=== PATIENT | male | born 1940 | race Caucasian/White ===

== ENCOUNTER → 2016-10-02 | Day surgery (SDC) | payer OTHER ==
[~2016-10-02] VITALS: Ht 188 cm; Wt 115.2 kg
[~2016-10-02] MED LIST: ADVAIR DISKUS1 UNIT INH; ALBUTEROL 3 ML3 ML INH; AMLODIPINE BESY10 MG PO; ASPIR LOW81 MG PO; CEFTIN 250 #201 PAC PO; CRESTOR 5MG5 MG PO; LASIX20 MG PO; LISINOPRIL40 MG PO; METOPROLOL SUCC50 MG PO; PREDNISONE 10MG10 M1 PO; PROAIR HFA0.09 MG/Ac PO; SYMBICORT 160/41 PUF INH; TRAMADOL HYDROC50 MG PO; WARFARIN SODIUM3 MG PO
--- NOTE | 2016-10-02 08:37 | Operative Report ---
Operative/Inv Procedure Report Surgery Date: 10/02/16 Name of Procedure: Cataract extraction lens implantation right eye Pre-Operative Diagnosis: Age-related cataract right eye 20/60 vision Post-Operative Diagnosis: Same Estimated Blood Loss: none Surgeon/Pulmonary Nurse Practitioner: BYRON FERNANDEZ,IRINEO Ledbetter Anesthesia: local monitored anesthesi Complications: None Operative/Procedure Note Note: The patient was brought to the operating room standard monitoring equipment was attached the patient was prepped and draped in the usual fashion for intraocular surgery. A lid speculum was placed to retract the lids. The case was begun by making 2 partial-thickness corneal relaxing incisions at 8. A temporal incision with a 2.4 mm keratome. The eye was stabilized with a Hill ring during this incision. 1 mL of non-preserved lidocaine was introduced into the anterior chamber to provide anesthesia. The anterior chamber was then filled and deepened with viscoelastic. A curvilinear capsulorrhexis was achieved using a 30-gauge needle and is a cystotome and capsulorrhexis was finished using a Utrata forceps. A second or paracentesis incision was made temporally with a 1 mm MVR blade. The lens was then hydrodissected with balanced salt solution and found to be rotatable. The lens was emulsified using phacoemulsification and a modified four-quadrant cracking technique. The residual cortical material was removed using automated irrigation and aspiration and as much of the anterior capsular rim was cleaned as well as possible. The posterior capsule was cleaned first with the automated machine on a low setting and then manually with a Tanner squeegee. The capsular bag was deepened with viscoelastic. The lens a Technis 1 23.0 Diopter placed into the bag under direct visualization and rotated so that the haptics were at 12 and 6:00. Viscoelastic was then removed from the eye by flushing it out and then by automated irrigation and aspiration. The eye was pressurized to a normal tone. 1/10 of a cc of vancomycin solution was introduced into the anterior chamber to provide antibiotic prophylaxis. The wounds were sealed by hydrating the stroma adjacent to them and the eye was left at a proper tone after the wounds were checked and found not to be leaking. The lid speculum was removed from the orbit. Antibiotic and steroid drops were placed on the eye and then the eye was shielded. Monitoring equipment was removed from the patient and the patient was removed from the operative suite to the holding area. The patient tolerated the procedure well and will be seen in the office tomorrow.
== END ==
LOC: STS 03:04
DX: H25.9 Unspecified age-related cataract (principal); I10 Essential (primary) hypertension; I25.2 Old myocardial infarction; E78.00 Pure hypercholesterolemia, unspecified
CPT/HCPCS: J2250; V2632

== ENCOUNTER → 2016-10-15 | Day surgery (SDC) | payer OTHER ==
[~2016-10-15] VITALS: Ht 188 cm; Wt 115.2 kg
--- NOTE | 2016-10-15 10:14 | Operative Report ---
Operative/Inv Procedure Report Surgery Date: 10/15/16 Name of Procedure: Cataract extraction lens implantation left eye Pre-Operative Diagnosis: Age-related cataract left eye 20/25 vision 20/50 glare vision Post-Operative Diagnosis: Same Estimated Blood Loss: none Surgeon/Field Support Representative: BYRON FERNANDEZ,IRINEO Ledbetter Anesthesia: local monitored anesthesi Complications: None Operative/Procedure Note Note: The patient was brought to the operating room standard monitoring equipment was attached the patient was prepped and draped in the usual fashion for intraocular surgery. A lid speculum was placed to retract the lids. The case was begun by making 2 partial-thickness corneal relaxing incisions at 160. A temporal incision with a 2.4 mm keratome. The eye was stabilized with a Hill ring during this incision. 1 mL of non-preserved lidocaine was introduced into the anterior chamber to provide anesthesia. The anterior chamber was then filled and deepened with viscoelastic. A curvilinear capsulorrhexis was achieved using a 30-gauge needle and is a cystotome and capsulorrhexis was finished using a Utrata forceps. A second or paracentesis incision was made temporally with a 1 mm MVR blade. The lens was then hydrodissected with balanced salt solution and found to be rotatable. The lens was emulsified using phacoemulsification and a modified four-quadrant cracking technique. The residual cortical material was removed using automated irrigation and aspiration and as much of the anterior capsular rim was cleaned as well as possible. The posterior capsule was cleaned first with the automated machine on a low setting and then manually with a Tanner squeegee. The capsular bag was deepened with viscoelastic. The lens a Technis 1 22.5 Diopter placed into the bag under direct visualization and rotated so that the haptics were at 12 and 6:00. Viscoelastic was then removed from the eye by flushing it out and then by automated irrigation and aspiration. The eye was pressurized to a normal tone. 1/10 of a cc of vancomycin solution was introduced into the anterior chamber to provide antibiotic prophylaxis. The wounds were sealed by hydrating the stroma adjacent to them and the eye was left at a proper tone after the wounds were checked and found not to be leaking. The lid speculum was removed from the orbit. Antibiotic and steroid drops were placed on the eye and then the eye was shielded. Monitoring equipment was removed from the patient and the patient was removed from the operative suite to the holding area. The patient tolerated the procedure well and will be seen in the office tomorrow.
== END ==
LOC: STS 01:06
DX: H25.9 Unspecified age-related cataract (principal); I10 Essential (primary) hypertension; E78.00 Pure hypercholesterolemia, unspecified; Z95.2 Presence of prosthetic heart valve; Z79.01 Long term (current) use of anticoagulants
CPT/HCPCS: J2250; V2632

== ENCOUNTER 2017-09-25 14:09 | Emergency (ER) | payer OTHER, MEDICARE ==
[~2017-09-25] VITALS: Ht 188 cm; Wt 117.9 kg
[~2017-09-25 14:09] MED LIST changes: +ALBUTEROL2.5 MG/3 M INH/SOL; +AMLODIPINE BESY10 M1 PO; -AMLODIPINE BESY10 MG PO; +AMOX-CLAV 875-1 EACH PO; +BACTRIM DS TAB1 EACH PO; +COUMADIN3 M1 PO; -CRESTOR 5MG5 MG PO; +CRESTOR5 M1 PO; +FUROSEMIDE20 M1 PO; +FUROSEMIDE40 M1 PO; +LOVENOX40 MG/0.1 SC; +METOPROLOL SUCC50 M2 PO; -METOPROLOL SUCC50 MG PO; +METOPROLOL TART50 M1 PO; +PREDNISONE10 M2 PO; +PREDNISONE5 M1 PO; -PROAIR HFA0.09 MG/Ac PO; +PROAIR HFA8.5 GM INH; -SYMBICORT 160/41 PUF INH; +SYMBICORT 16010.2 GM INH; +TRAMADOL HCL50 M1 PO; -WARFARIN SODIUM3 MG PO
--- NOTE | 2017-09-25 14:33 | ED GENERAL ADULT ---
History of Present Illness General Chief Complaint: Dyspnea (COPD, CHF, Other) Stated Complaint: SOB/ASTHMA Source: patient, family Exam Limitations: no limitations Vital Signs & Intake/Output Vital Signs & Intake/Output Vital Signs Date Time Temp Pulse Resp B/P B/P Pulse O2 O2 Flow FiO2 Mean Ox Delivery Rate 09/25 1934 156/78 09/253 97.7 62 20 174/84 94 Room Air 09/25 1720 98.5 98 19 134/78 98 Room Air 09/25 1452 97.7 100 22 94 Room Air 09/25 1444 99 Room Air 09/25 1427 98.0 101 18 144/77 99 Room Air Allergies Coded Allergies: clavulanic acid (From AUGMENTIN) (GI UPSET 06/23/17) Reconcile Medications Albuterol Sulfate (Proair Hfa) 90 MCG HFA.AER.AD 2 PUF INH Q4-6 PRN PRN ASTHMA (Reported) Albuterol Sulfate 2.5 MG/3 ML (0.083 %) VIAL.NEB 1 Vial INH/TORI Q4P PRN SHORTNESS OF BREATH (Reported) Amlodipine Besylate 10 MG TABLET 1 TAB PO DAILY BP (Reported) Amoxicillin 500 MG CAPSULE 1 CAP PO BID BRONCHITIS Budesonide/Formoterol Fumarate (Symbicort 160-4.5 Mcg Inhaler) 160 MCG-4.5 MCG/ ACTUATION HFA.AER.AD 2 PUF INH BID COPD (Reported) Enoxaparin Sodium (Lovenox) 40 MG/0.4 ML SYRINGE 3 SYR SC BID HEART VALVE Please inject 120mg lovenox twice a day until your INR is 2.5-3.5. Then stop the lovenox.. Furosemide 40 MG TABLET 1 TAB PO DAILY SHORTNESS OF BREATH . Metoprolol Tartrate 50 MG TABLET 1 TAB PO BID HEART (Reported) Prednisone 20 MG TABLET 2 TAB PO DAILY ASTHMA Prednisone 5 MG TABLET 1 TAB PO DAILY Shortness of breath Please start taking 07/22/17. Rosuvastatin Calcium (Crestor) 5 MG TABLET 1 TAB PO DAILY CHOLESTEROL ( Reported) Sulfamethoxazole/Trimethoprim (Bactrim Ds Tablet) 800 MG-160 MG TABLET 1 TAB PO BID MRSA PNEUMONIA . Tramadol HCl 50 MG TABLET 1 TAB PO Q6P PRN PAIN (Reported) Warfarin Sodium (Coumadin) 3 MG TABLET 4.5 MG PO DAILY BLOOD THINNER ( Reported) Triage Note: PT TO ED FOR WORSENING SOB OVER PAST WEEK, AUDIBLY WHEEZING IN TRIAGE, USED NEB AT HOME WITH NO RELIEF. Triage Nurses Notes Reviewed? yes Onset: Abrupt Duration: day(s): Timing: recent history HPI: 09/25/17 2:30 PM 77-year-old male presents to the emergency department for difficulty breathing over the past 3 days. The onset of the symptoms have been gradual, the duration has been the past 3 days, the severity is significant as his symptoms required him to come to the emergency department. He admits to a nonproductive cough, but denies fever. No chest pain. He does admit to wheezing. Past History Medical History Any Pertinent Medical History? 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 No Review of Systems Review of Systems Constitutional: Denies: fever. EENTM: Reports: no symptoms. Respiratory: Reports: cough, short of breath. Cardiovascular: Denies: chest pain. GI: Denies: abdominal pain. Genitourinary: Reports: no symptoms. Musculoskeletal: Reports: no symptoms. Skin: Reports: no symptoms. Neurological/Psychological: Reports: no symptoms. Hematologic/Endocrine: Reports: no symptoms. Immunologic/Allergic: Reports: no symptoms. Physical Exam Physical Exam General Appearance: well developed/nourished, alert, awake, anxious Head: atraumatic, normal appearance Eyes: Bilateral: normal appearance, PERRL, EOMI. Ears, Nose, Throat: normal pharynx, normal ENT inspection Neck: normal inspection, supple Respiratory: decreased breath sounds, wheezing Cardiovascular: regular rate/rhythm Peripheral Pulses: 4+ radial (R), 4+ radial (L) Gastrointestinal: non-tender Back: normal range of motion Extremities: normal inspection, normal range of motion Neurologic/Psych: no motor/sensory deficits, awake, alert, oriented x 3 Skin: intact, normal color, warm/dry Core Measures ACS in differential dx? No CVA/TIA Diagnosis: No Sepsis Present: No Sepsis Focused Exam Completed? No Progress Differential Diagnoses I considered the following diagnoses in my evaluation of the patient: [Asthma, COPD, CHF, pulmonary embolism] Plan of Care: Orders Procedure Date/time Status Add-on Test (ER Only) 09/25 1935 Active TROPONIN LEVEL 09/25 1830 Complete EKG 09/25 1830 Active PROTHROMBIN TIME 09/25 1450 Complete TROPONIN LEVEL 09/25 1431 Complete D-DIMER 09/25 1431 Complete COMPREHENSIVE METABOLIC PANEL 09/25 1431 Complete CBC WITHOUT DIFFERENTIAL 09/25 1431 Complete B-TYPE NATRIURETIC PEP (BNP) 09/25 1431 Complete EKG 09/25 1431 Active EKG 09/25 1414 Active Laboratory Tests 09/25/17 1821: Troponin I 0.04 09/25/17 1450: Anion Gap 15, Estimated GFR > 60, BUN/Creatinine Ratio 25.0, Glucose 133 H, Calcium 9.1, Total Bilirubin 1.0, AST 24, ALT 40, Alkaline Phosphatase 60, Troponin I 0.04, Xqi-F-Mrwkvkisadi Pept 721 H, Total Protein 6.6, Albumin 4.1, Globulin 2.5, Albumin/Globulin Ratio 1.6, PT 26.0 H, INR 2.50 H, D-Dimer High Sensitivty 256 H, CBC w Diff NO MAN DIFF REQ, RBC 4.15 L, MCV 96.7 H, MCH 32.3 H, RDW 13.9, MPV 8.3, Gran % 78.9 H, Lymphocytes % 11.6 L, Monocytes % 8.2, Eosinophils % 0.9, Basophils % 0.4, Absolute Granulocytes 4.6, Absolute Lymphocytes 0.7 L, Absolute Monocytes 0.5, Absolute Eosinophils 0.1, Absolute Basophils 0, PUBS MCHC 33.4 Initial ED EKG: NSR, new t wacve inversions III, AVF Departure Departure Disposition: STILL A PATIENT Condition: Stable Clinical Impression Primary Impression: Dyspnea Referrals: Vandana Ram MD (PCP/Family) Departure Forms: Customer Survey General Discharge Information Prescriptions: Current Visit Scripts Amoxicillin 1 CAP PO BID #20 CAP Prednisone 2 TAB PO DAILY #10 TAB Comments 09/25/17 7:35 PM Repeat EKG shows nonspecific T-wave abnormality. No significant changes from the old tracing. Second troponin is unchanged. I discussed the case with the patient's mover Dr. Higginbotham who agrees with the management and plan. Chest x-ray is negative. Labs are otherwise unremarkable. The patient never had any chest pain, is currently asymptomatic. He was treated with amoxicillin and prednisone along with his inhalers. He will follow-up with his doctor on Friday or return to the emergency department if worse. Critical Care Note Critical Care Note Critical Care Time: non-applicable
[2017-09-25 14:59] LABS: ABSOLUTE BASOPHIL COUNT 0 /CUMM (0.0-0.2); ABSOLUTE EOSINOPHIL COUNT 0.1 /CUMM (0.0-0.7); ABSOLUTE GRANULOCYTE CT 4.6 /CUMM (1.4-6.5); ABSOLUTE LYMPH COUNT 0.7 /CUMM (1.2-3.4); ABSOLUTE MONOCYTE COUNT 0.5 /CUMM (0.10-0.60); BASOPHIL % 0.4 % (0.0-2.0); EOSINOPHIL % 0.9 % (0-5); GRANULOCYTE % 78.9 % (42.2-75.2); HEMATOCRIT 40.2 % (42-52); MEAN CORPUSCULAR HGB 32.3 PG (27.0-31.0); MEAN CORPUSCULAR HGB CONC 33.4 G/DL (33.0-37.0); MEAN CORPUSCULAR VOLUME 96.7 FL (80.0-94.0); MEAN PLATELET VOLUME 8.3 FL (7.4-10.4); PLATELET COUNT 182 /CUMM (130-400); RBC DISTRIBUTION WIDTH 13.9 % (11.5-14.5); RED BLOOD CELL CT 4.15 /CUMM (4.70-6.10); WHITE BLOOD CELL COUNT 5.9 /CUMM (4.8-10.8)
--- NOTE | 2017-09-25 15:14 | RADIOLOGY REPORT ---
EXAMINATION: XR PORTABLE CHEST CLINICAL INFORMATION: Shortness of breath COMPARISON: Chest x-ray 09/10/2017 TECHNIQUE: Portable frontal view of the chest was obtained. FINDINGS: Status post median sternotomy. Heart size is normal. The cardiomediastinal contours are normal. There is no pulmonary vascular congestion. No infiltrate. No pleural effusion. Compared with prior study no change. IMPRESSION: No acute abnormality of the chest.
[2017-09-25] MEDS ORDERED: AMOXICILLIN500 M2 PO (19:33)
[2017-09-25 19:34] VITALS: BP 156/78
[2017-09-25] MEDS ORDERED: PREDNISONE20 M1 PO (19:34)
== END 2017-09-25 19:37 ==
LOC: ERH 14:09
PROVIDERS: Emergency Medicine
DX: R06.00 Dyspnea, unspecified (principal); R05 Cough; I10 Essential (primary) hypertension; I50.9 Heart failure, unspecified
CPT/HCPCS: 1263; 71045; 93005; 93010

== ENCOUNTER 2017-11-01 14:14 | Inpatient (IN) | payer OTHER, MEDICARE ==
[~2017-11-01] VITALS: Ht 180.3 cm; Wt 120.7 kg
[~2017-11-01 14:14] MED LIST changes: +AMOXICILLIN500 M2 PO; +AMOXICILLIN500 M3 PO; +IPRAT-ALBUT 0.5-3 ML INH; +PREDNISONE20 M1 PO
--- NOTE | 2017-11-01 14:41 | ED DYSPNEA/ASTHMA COMPLAINT ---
History of Present Illness General Chief Complaint: Dyspnea (COPD, CHF, Other) Stated Complaint: SOB Source: patient, old records Exam Limitations: no limitations Vital Signs & Intake/Output Vital Signs & Intake/Output Vital Signs Date Time Temp Pulse Resp B/P B/P Pulse O2 O2 Flow FiO2 Mean Ox Delivery Rate 11/01 1547 96 Nasal 2.0L Cannula 11/01 1443 Nasal 2.0L Cannula 11/01 1421 92 Nasal 2.0L Cannula 11/01 1419 96.1 71 22 168/78 89 Triage Note: PT STATES HE WAS HERE YESTERDAY AND SEEN BY DR. RESENDIZ AND RIRI AND STATE THEY FELT IT WAS HIS ASMTHA. PT STATES HE WAS GIVEN BREATHING TREATMENTS GIVEN STEROIDS AND STATES HE DID FEEL BETTER YESTREDAY HOWEVER WOKE TODAY AND IS FEELIGN VERY SOB. RESP. PAGED Triage Nurses Notes Reviewed? yes Onset: Gradual Duration: day(s): Timing: recent history Severity: severe HPI: 77YO MALE with hx of CAD, CHF, HTN, hld, OK, heart failure with preserved ejection fraction, aortic aneursym s/p repair, asthma presents to ED complaining of worsening dyspnea and wheezing. PAtient was seen and evaluated here two days ago and started on Augmentin and Prednisone in addition to albuterol inhaler. Patient reports that symptoms have worsened, especially last night, patient had episode where he felt as though he couldn't breath. Patient reports cough initially productive and white sputum and currently productive of yellow sputum. Patient sees pulmonolgist Dr. Madrid. The patient denies fevers, chills, nausea, vomiting, chest pain, abdominal pain, diarrhea, sore throat. Patient has stable chronic swelling of both lower extremities present for over a year. (Cele GALLO,Jennie Mireles) Allergies Coded Allergies: No Known Allergies (11/01/17) Reconcile Medications Albuterol Sulfate (Proair Hfa) 90 MCG HFA.AER.AD 2 PUF INH Q4-6 PRN PRN ASTHMA (Reported) Albuterol Sulfate 2.5 MG/3 ML (0.083 %) VIAL.NEB 1 Vial INH/TORI Q4P PRN SHORTNESS OF BREATH (Reported) Amlodipine Besylate 10 MG TABLET 1 TAB PO DAILY BP (Reported) Budesonide/Formoterol Fumarate (Symbicort 160-4.5 Mcg Inhaler) 160 MCG-4.5 MCG/ ACTUATION HFA.AER.AD 2 PUF INH BID COPD (Reported) Furosemide 40 MG TABLET 1 TAB PO DAILY SHORTNESS OF BREATH . Hydrocodone/Acetaminophen (Vicodin 5-300 MG Tablet) 5 MG-300 MG TABLET 1 TAB PO AD PRN PAIN (Reported) Ipratropium/Albuterol Sulfate (Iprat-Albut 0.5-3(2.5) MG/3 Ml) 0.5 MG-3 MG (2.5 MG BASE)/3 ML AMPUL.NEB 1 VIAL INH Q6HR PRN WHEEZING Lactobacillus Acidophilus (Probiotic) (Unknown Strength) CAPSULE (Unknown Dose ) PO DAILY PROBIOTIC (Reported) Metoprolol Tartrate 50 MG TABLET 1 TAB PO BID HEART (Reported) Multiple Vitamin (Multivitamins) 1 EACH TABLET 1 TAB PO DAILY SUPPLEMENT ( Reported) Omeprazole Magnesium (Prilosec Otc) 20 MG TABLET.DR 1 TAB PO DAILY GI ( Reported) Prednisone 10 MG TABLET 0 PO DAILY asthma 5 tabs po day 1 4 tabs po day 2 3 tabs po day 3 2 tabs po day 4 1 tab po day 5 and 6 Rosuvastatin Calcium (Crestor) 5 MG TABLET 1 TAB PO DAILY CHOLESTEROL ( Reported) Tramadol HCl 50 MG TABLET 1 TAB PO Q6P PRN PAIN (Reported) Warfarin Sodium (Coumadin) (Unknown Strength) TABLET (Unknown Dose) PO DAILY BLOOD THINNER (Reported) (Rubin FERNANDEZ,Kyle Lim) Past History Travel History Traveled to [place] past 21 day No Medical History Any Pertinent Medical History? 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 No (Jennie Mello) Review of Systems Review of Systems Constitutional: Reports: no symptoms. EENTM: Reports: no symptoms. Respiratory: Reports: see HPI. Cardiovascular: Reports: no symptoms. GI: Reports: no symptoms. Genitourinary: Reports: no symptoms. Musculoskeletal: Reports: no symptoms. Skin: Reports: no symptoms. Neurological/Psychological: Reports: no symptoms. Hematologic/Endocrine: Reports: no symptoms. Immunologic/Allergic: Reports: no symptoms. All Other Systems: Reviewed and Negative (Jennie Mello) Physical Exam Physical Exam General Appearance: well developed/nourished, alert, awake Head: atraumatic, normal appearance Eyes: Bilateral: normal appearance. Ears, Nose, Throat: normal pharynx, normal ENT inspection, hearing grossly normal Neck: normal inspection, supple, full range of motion Respiratory: diffuse expiratory wheezes through out lung hopkins Cardiovascular: regular rate/rhythm Peripheral Pulses: 2+ radial (R), 2+ radial (L) Gastrointestinal: normal bowel sounds, soft, non-tender, no organomegaly Extremities: normal range of motion, 3+ pitting edema bilaterally with erythema Neurologic/Psych: awake, alert, oriented x 3 Skin: erythema of bilateral lower legs Core Measures ACS in differential dx? Yes CVA/TIA Diagnosis No Sepsis Present: No Sepsis Focused Exam Completed? No (Jennie Mello) Progress Differential Diagnosis: asthma, AMI, bronchitis, costochondritis, CHF, COPD, musculoskeletal pain, pulmonary embolism, pneumonia, pneumothorax, unstable angina Plan of Care: Orders Procedure Date/time Status TROPONIN LEVEL 11/02 0500 Active CBC WITHOUT DIFFERENTIAL 11/02 0500 Active BASIC ELECTROLYTES PLUS BUN&CR 11/02 0500 Active EKG 11/02 0500 Active Heart Healthy Diet 11/01 D Active TROPONIN LEVEL 11/01 2040 Active EKG 11/01 2040 Active LACTIC ACID 11/01 1727 Active Pathway - chart 11/01 1640 Active Patient Data 11/01 1640 Active Code Status 11/01 1640 Active Patient Data 11/01 1614 Active ED Holding Orders 11/01 1550 Active Admit to inpatient 11/01 1550 Active Vital Signs 11/01 1550 Active Code Status 11/01 1550 Complete TROPONIN LEVEL 11/01 1427 Complete LACTIC ACID 11/01 1427 Complete COMPREHENSIVE METABOLIC PANEL 11/01 1427 Complete CBC WITHOUT DIFFERENTIAL 11/01 1427 Complete B-TYPE NATRIURETIC PEP (BNP) 11/01 142 Complete EKG 11/01 1415 Active TRC EVALUATION (GEN) 11/01 UNK Active OXYGEN SETUP (GEN) 11/01 UNK Active House Staff 11/01 UNK Active VTE Mechanical Prophylaxis 11/01 UNK Active Vital Signs 11/01 UNK Active Telemetry/Associate Merchandise Planner 11/01 UNK Active Intake & Output 11/01 UNK Active Current Medications Sig/Poppy Start time Last Medication Dose Stop Time Status Admin Acetaminophen 650 MG Q6P PRN 11/01 1645 UNVr (Tylenol) Enoxaparin Sodium 40 MG DAILY 11/01 1640 UNVr (Lovenox) Magnesium Sulfate 1 GM ONCE ONE 11/01 1445 AC 11/01 (Mag Sulfate in D5) 11/01 1844 1453 Dextrose/Water 100 ML (D5W) Laboratory Tests 11/01/17 1440: Anion Gap 13, Estimated GFR > 60, BUN/Creatinine Ratio 31.1 H, Glucose 142 H, Lactic Acid 3.5 H, Calcium 9.7, Total Bilirubin 0.8, AST 45, ALT 34, Alkaline Phosphatase 58, Troponin I 0.04, Hua-N-Grazztzjvgg Pept 2600 H, Total Protein 7.1, Albumin 4.6, Globulin 2.5, Albumin/Globulin Ratio 1.8, CBC w Diff MAN DIFF ORDERED, RBC 4.49 L, MCV 96.8 H, MCH 32.7 H, MCHC 33.8, RDW 15.1 H, MPV 8.9, Gran % 90.9 H, Lymphocytes % 3.2 L, Monocytes % 5.9, Eosinophils % 0, Basophils % 0, Absolute Granulocytes 7.5 H, Absolute Lymphocytes 0.3 L, Absolute Monocytes 0.5, Absolute Eosinophils 0, Absolute Basophils 0, Platelet Estimate VERIFIED BY SMEAR, Anisocytosis 1+ Patient has persistent wheezes and hypoxia despite trial of outpatient abx and prednisone. Patient requires supplemental O2 here in the ED while at rest. Patient also with elevation in BNP compared to prior labs from 2 days ago. Family report he has not been taking lasix as prescribed recently, missed doses. Dr. Conklin spoke with hospitalist regarding this patient's telemetry admission for acute asthma exacerbation and volume overload. Patient requires IV steroids, pulmonology consult, IV lasix, repeat labs, possible cardiology consult, premature discharge would be unsafe. Diagnostic Imaging: Viewed by Me: Radiology Read. Discussed w/RAD: Radiology Read. Radiology Impression: LOCATION: [facility] ORDERING PHYSICIAN: Kyle Conklin MD SERVICE DATE: 11/01/177429 EXAM TYPE: RAD - XRY-PORTABLE CHEST XRAY EXAMINATION: XR PORTABLE CHEST CLINICAL INFORMATION: Shortness of breath. COMPARISON: 10/30/2017 TECHNIQUE: Single portable frontal view of the chest was obtained. The costophrenic sulci are excluded from [id number]. FINDINGS: Lungs are well expanded. No evidence of acute interstitial edema, focal consolidation, pleural effusion or pneumothorax. Again noted are cardiomegaly, replaced aortic valve, and intact sternotomy wires. The visualized bones are intact. IMPRESSION: 1. No acute pulmonary findings compared to 01/27/2018. 2. Cardiomegaly. DICTATED BY: Gera Metz MD DATE/TIME DICTATED:11/01/171618 MACHINE TOOL DRESSER:DENZEL DATE/TIME TRANSCRIBED:11/01/171618 CONFIDENTIAL, DO NOT COPY WITHOUT APPROPRIATE AUTHORIZATION. <Electronically signed in Other Vendor System> SIGNED BY: Gera Metz MD 11/01/174 Initial ED EKG: sinus rhythm @ 70BPM, PAC, stable ST depression lateral leads, nonspecific ST changes Prior EKG: unchanged (10/30/17) (Jennie Mello) Departure Departure Referrals: Vandana Ram MD (PCP/Family) Departure Forms: Customer Survey General Discharge Information (Jennie Mello) Departure Disposition: STILL A PATIENT Condition: Guarded Clinical Impression Primary Impression: Asthma exacerbation Secondary Impressions: Fluid overload Admission Note Spoke With: Candido Rouse MD Documentation of Exam: Documentation of any treatments & extenuating circumstances including Concerns Regarding Discharge (functional status, medication knowledge or non-compliance, living conditions, etc.) that warrant an admission rather than observation: [ TELE MONITORING, IV DIURESIS, NEBS, IV STEROIDS, IV ABX, FAILED OUTPATIENT TREATMENT] PA/HOSPITAL COORDINATOR Co-Sign Statement Statement: ED Attending supervision documentation- [X] I saw and evaluated the patient. I have also reviewed all the pertinent lab results and diagnostic results. I agree with the findings and the plan of care as documented in the PA's/HOSPITAL COORDINATOR's documentation. [X] I have reviewed the ED Record and agree with the PA's/HOSPITAL COORDINATOR's documentation. [] Additions or exceptions (if any) to the PAs/HOSPITAL COORDINATOR's note and plan are summarized below: [SEE ABOVE NOTE] (Rubin FERNANDEZ,Kyle Lim) Critical Care Note Critical Care Note Critical Care Time: 30-74 min (Cele GALLO,Jennie Mireles)
[2017-11-01 14:54] LABS: ABSOLUTE BASOPHIL COUNT 0 /CUMM (0.0-0.2); ABSOLUTE EOSINOPHIL COUNT 0 /CUMM (0.0-0.7); ABSOLUTE GRANULOCYTE CT 7.5 /CUMM (1.4-6.5); ABSOLUTE LYMPH COUNT 0.3 /CUMM (1.2-3.4); ABSOLUTE MONOCYTE COUNT 0.5 /CUMM (0.10-0.60); BASOPHIL % 0 % (0.0-2.0); EOSINOPHIL % 0 % (0-5); GRANULOCYTE % 90.9 % (42.2-75.2); HEMATOCRIT 43.4 % (42-52); MEAN CORPUSCULAR HGB 32.7 PG (27.0-31.0); MEAN CORPUSCULAR HGB CONC 33.8 G/DL (33.0-37.0); MEAN CORPUSCULAR VOLUME 96.8 FL (80.0-94.0); MEAN PLATELET VOLUME 8.9 FL (7.4-10.4); PLATELET COUNT 184 /CUMM (130-400); RBC DISTRIBUTION WIDTH 15.1 % (11.5-14.5); RED BLOOD CELL CT 4.49 /CUMM (4.70-6.10)
[2017-11-01 14:58] LABS: WHITE BLOOD CELL COUNT 8.2 /CUMM (4.8-10.8)
--- NOTE | 2017-11-01 16:27 | RADIOLOGY REPORT ---
EXAMINATION: XR PORTABLE CHEST CLINICAL INFORMATION: Shortness of breath. COMPARISON: 10/30/2017 TECHNIQUE: Single portable frontal view of the chest was obtained. The costophrenic sulci are excluded from [id number]. FINDINGS: Lungs are well expanded. No evidence of acute interstitial edema, focal consolidation, pleural effusion or pneumothorax. Again noted are cardiomegaly, replaced aortic valve, and intact sternotomy wires. The visualized bones are intact. IMPRESSION: 1. No acute pulmonary findings compared to 01/27/2018. 2. Cardiomegaly.
--- NOTE | 2017-11-01 16:35 | History & Physical ---
Flor Salmeron 11/01/17 1633: General Information and HPI MD Statement: I have seen and personally examined CANDIDA VALERO and documented this H&P. The patient is a 77 year old M who presented with a patient stated chief complaint of [dyspnea]. Source of Information: patient, family Exam Limitations: no limitations History of Present Illness: is a 77-year-old male with history of coronary artery disease, CHF, hypertension, hyperlipidemia, previous DC, hypertension with preserved ejection fraction, aortic aneurysm, gout, arthritis, and presents to the emergency department with chief complaint of shortness of breath which has been progressively worsening since 4 days prior to admission. Previously on 30 of October he was sent in the emergency department by his primary care Vandana Ram MD was treated for asthma exacerbation, he was treated with prednisone taper, was started on Augmentin and duonebulizations and returned home. However his shortness of breath continued to worsen, he had significant shortness of breath from just walking across the room towards the door, right prior to today's admission is shortness of breath got worse in spite of being on the steroids, nebulization and Augmentin antibiotic therefore he presented to the ER. Allergies/Medications Allergies: Coded Allergies: No Known Allergies (11/01/17) Home Med list Albuterol Sulfate (Proair Hfa) 90 MCG HFA.AER.AD 2 PUF INH Q4-6 PRN PRN ASTHMA (Reported) Albuterol Sulfate 2.5 MG/3 ML (0.083 %) VIAL.NEB 1 Vial INH/TORI Q4P PRN SHORTNESS OF BREATH (Reported) Amlodipine Besylate 10 MG TABLET 1 TAB PO DAILY BP (Reported) Budesonide/Formoterol Fumarate (Symbicort 160-4.5 Mcg Inhaler) 160 MCG-4.5 MCG/ ACTUATION HFA.AER.AD 2 PUF INH BID COPD (Reported) Furosemide 40 MG TABLET 1 TAB PO DAILY SHORTNESS OF BREATH . Hydrocodone/Acetaminophen (Vicodin 5-300 MG Tablet) 5 MG-300 MG TABLET 1 TAB PO AD PRN PAIN (Reported) Ipratropium/Albuterol Sulfate (Iprat-Albut 0.5-3(2.5) MG/3 Ml) 0.5 MG-3 MG (2.5 MG BASE)/3 ML AMPUL.NEB 1 VIAL INH Q6HR PRN WHEEZING Lactobacillus Acidophilus (Probiotic) (Unknown Strength) CAPSULE (Unknown Dose ) PO DAILY PROBIOTIC (Reported) Metoprolol Tartrate 50 MG TABLET 1 TAB PO BID HEART (Reported) Multiple Vitamin (Multivitamins) 1 EACH TABLET 1 TAB PO DAILY SUPPLEMENT ( Reported) Omeprazole Magnesium (Prilosec Otc) 20 MG TABLET.DR 1 TAB PO DAILY GI ( Reported) Prednisone 10 MG TABLET 0 PO DAILY asthma 5 tabs po day 1 4 tabs po day 2 3 tabs po day 3 2 tabs po day 4 1 tab po day 5 and 6 Rosuvastatin Calcium (Crestor) 5 MG TABLET 1 TAB PO DAILY CHOLESTEROL ( Reported) Tramadol HCl 50 MG TABLET 1 TAB PO Q6P PRN PAIN (Reported) Warfarin Sodium (Coumadin) (Unknown Strength) TABLET 4.5 MG PO DAILY BLOOD THINNER (Reported) Compliance With Home Meds: GOOD Past History Travel History Traveled to [place] past 21 day No Medical History Neurological: status post nerve damage right arm/hand/fingers EENT: NONE Cardiovascular: CAD, CHF, hypertension, hyperlipidemia, myocardial infarction, AORTIC ANEURSYM Respiratory: asthma Gastrointestinal: GERD Hepatic: NONE Renal: benign prost hyperplasia Musculoskeletal: gout, septic arthritis (left ankle 2000) Psychiatric: NONE Endocrine: NONE Blood Disorders: NONE Cancer(s): NONE PERFORATOR OPERATOR/Reproductive: NONE History of MRSA: Yes History of VRE: No History of CDIFF: No Surgical History Surgical History: CABG, cholecystectomy, status post aortic valve replacement 2013 status post repair of an aortic aneurysm 2013 status post excision of the second metatarsal head of the right foot ECHO Results (as available) EF% 55 Past Family/Social History Family History Relations & Conditions if any FATHER FH: pancreatic cancer Psychosocial History Where do you live? Home Who Do You Live With? spouse Services at Home: None Smoking Status: Never Smoked ETOH Use: occasional use Illicit Drug Use: denies illicit drug use Functional Ability ADLs Independent: dressing, eating, toileting, bathing. Ambulation: independent IADLs Independent: shopping, housework, finances, food prep, telephone, transportation , medication admin. Review of Systems Review of Systems Constitutional: Denies: chills, diaphoresis, fever, malaise, weakness, unexplained weight loss. EENTM: Denies: blurred vision, double vision, visual changes, eye pain. Cardiovascular: Reports: edema, orthopena, peripheral edema. Denies: chest pain, palpitations. Respiratory: Reports: cough, orthopnea, short of breath. Denies: hemoptysis. GI: Denies: abdominal pain, bloating, constipation, diarrhea. Genitourinary: Denies: no symptoms. Musculoskeletal: Denies: back pain, gout, joint pain, joint swelling. Skin: Denies: cysts, change in skin color, change in hair/nails, dryness. Neurological/Psychological: Denies: anxiety, ataxia, cognitive dysfunction, confusion. Hematologic/Endocrine: Reports: no symptoms. Immunologic/Allergic: Reports: no symptoms. All Other Systems: Reviewed and Negative Exam & Diagnostic Data Last 24 Hrs of Vital Signs/I&O Vital Signs Date Time Temp Pulse Resp B/P B/P Pulse O2 O2 Flow FiO2 Mean Ox Delivery Rate 11/01 1631 97.7 78 16 154/76 95 Nasal 2.0L Cannula 11/01 1547 96 Nasal 2.0L Cannula 11/01 1443 Nasal 2.0L Cannula 11/01 1421 92 Nasal 2.0L Cannula 11/01 1419 96.1 71 22 168/78 89 Intake & Output 11/01 1600 11/01 0800 11/01 0000 Intake Total Output Total Balance Patient 112.491 kg Weight Weight Reported by Patient Measurement Method Physical Exam General Appearance Alert, Oriented X3, Cooperative, No Acute Distress Skin No Rashes, No Breakdown, No Significant Lesion HEENT Atraumatic, PERRLA, EOMI Neck Supple, No JVD Cardiovascular Normal S1, Normal S2 Lungs bilateral basal crackles present, rhonchi scattered heard all over. Abdomen Normal Bowel Sounds, Soft, No Tenderness Neurological Strength at 5/5 X4 Ext, Normal Tone, Sensation Intact Extremities edema 2+, normal pulses, dark pigmentation left leg more than right, chronic from peripheral arterial disease. Vascular Normal Pulses, Pulses Symmetrical Last 24 Hrs of Labs/Mamadou: Laboratory Tests 11/01/17 1740: Lactic Acid Pending, PT 35.9 H, INR 3.46 H 11/01/17 1440: Anion Gap 13, Estimated GFR > 60, BUN/Creatinine Ratio 31.1 H, Glucose 142 H, Lactic Acid 3.5 H, Calcium 9.7, Total Bilirubin 0.8, AST 45, ALT 34, Alkaline Phosphatase 58, Troponin I 0.04, Cak-X-Qrlcfrlduva Pept 2600 H, Total Protein 7.1, Albumin 4.6, Globulin 2.5, Albumin/Globulin Ratio 1.8, CBC w Diff MAN DIFF ORDERED, RBC 4.49 L, MCV 96.8 H, MCH 32.7 H, MCHC 33.8, RDW 15.1 H, MPV 8.9, Gran % 90.9 H, Lymphocytes % 3.2 L, Monocytes % 5.9, Eosinophils % 0, Basophils % 0, Absolute Granulocytes 7.5 H, Absolute Lymphocytes 0.3 L, Absolute Monocytes 0.5, Absolute Eosinophils 0, Absolute Basophils 0, Platelet Estimate VERIFIED BY SMEAR, Anisocytosis 1+ Diagnostic Data EKG Results Was sinus rhythm, 70, PACs, nonspecific ST-T wave changes, present on the previous EKG. CXR Results Chest x-ray done today at the ER 11/01/2017 showed cardiomegaly, there was no evidence of acute interstitial edema, focal consolidation or pleural effusion. Assessment/Plan Assessment: In summary this is a 75-year-old male, nonsmoker, nonalcoholic, with past medical history of coronary artery disease, CHF, hypertension, hyperlipidemia, [place], heart failure with preserved ejection fraction, aortic medicine, gout, arthritis and asthma came in with chief complaint of worsening shortness of breath since last 4 days, previously being seen at the ER on October 30 and being discharged on by mouth prednisone and Augmentin return back to the emergency department with worsening shortness of breath, especially on exertion. Relevant labs white count of 8.2, H/H of 14.7/43.4, initial lactic acid was elevated at 3.5, BNP was elevated to 2600 (917 on October 30), glucose of 142, BUN/creatinine 28/0.9. INR of 3.46. Electrolytes within normal limits. CX-ray did not show any acute interstitial edema/consolidation however cardiomegaly was present. EKG showed normal sinus rhythm, with rate of 70, nonspecific ST-T wave changes which are also present on the old EKG, no acute changes troponin was negative. We will admit the patient to telemetry floor for treatment of following problems. #1 asthma exacerbation * Continue TRC nebulization, continue oxygen to maintain saturation greater than 92%. * He received 125 mg of IV Solu-Medrol, continue IV Solu-Medrol 60 every 8. * Continue Zithromax and for anti-inflammatory effect. * ct to follow cultures. #2 CHF exacerbation * ProBNP elevated from baseline. * Continue to monitor intake and output, daily weight, he received 40 mg of IV Lasix, home dosage is 20 mg by mouth Lasix. * Repeat chest x-ray to monitor. * Cardiology consult. * repeat echocardiogram * Continue to monitor electrolytes, replete as necessary while on IV Lasix. * continue to trend troponins/EKG # 3 history of peripheral arterial disease * Stable. * Follows up with Dr. feliz as outpatient. #4 history of aortic aneurysm/aortic valve replacement on Coumadin. * His INR was noted to be supratherapeutic, and if we continue to hold coumadin * Continue daily INR checks. * Dose Coumadin per INR, home discharge is 4.5 mg of Coumadin daily. #5 history of hyperlipidemia, coronary artery disease, hypertension * Continue atorvastatin, metoprolol 25 mg in the morning and 50 mg in the evening, continue amlodipine. DVT prophylaxis with Coumadin. Heart healthy diet. Pain pathway, will continue Vicodin which he takes at home. full code. As Ranked By This Provider Problem List: 1. CHF (congestive heart failure) 2. Hypertension 3. Asthma exacerbation 4. Fluid overload 5. Hx of mechanical aortic valve replacement Core Measures/Misc (06/01) Acute Coronary Syndrome ACS Diagnosis: No Congestive Heart Failure Congestive Heart Failure Diagnosis Yes Last Known EF % 5 Cerebrovascular Accident CVA/TIA Diagnosis: No VTE (View Protocol) VTE Risk Factors Age>40 No Mechanical VTE Prophylaxis d/t Other No VTE Pharm Prophylaxis d/t Supratherapeutic INR Sepsis (View protocol) Sepsis Present: No Resident Review Statement Resident Statement: admitted by resident Candido Rouse 11/01/17 1717: Attending MD Review Statement Attending Statement Attending MD Statement: examined this patient, discuss w/resident/PA/AIRPLANE PILOT PHOTOGRAMMETRY, agreed w/resident/PA/AIRPLANE PILOT PHOTOGRAMMETRY, discussed with family, reviewed EMR data (avail), discussed with nursing, discussed with case mgmt, reviewed images, amended to note Attending Assessment/Plan: Patient is a 77-year-old male with history of cad, chf,htn, hld, DC, heart failure with preserved ejection fraction, aortic aneursym, gout, arthritis and asthma presenting to the emergency department with chief complaint of shortness of breath for few days. Patient initally seen in ER and discharged on augmentin and prednsione for bronchitis but came back with SOB. Patient found to have b/l wheezing with pedal edema 2+ with mild improvement in symtpoms with lasix given in ER. Use of accessory muscles+. Labs WBC 8.2 hb 14.7/43.4 LA 3.5 trop 0.04 BNP 2600 (elevation than baseline) Chest xray with cardiomegaly, no acute findings EKG with no acute changes Patient being admitted to telemetry monitoring for dypnea at rest possible asthma exacerbation and possible CHF exacerbation with preserved EF. Obtain serial cardiac enzymes, cardiology consult, iv lasix 40 q 12, iv steroids 40 q 8 , azithromycin, ECHO as per cardiology. Monitor I/O, daily weights. Repeat LA. Resume home meds gi/dvt prophylaxis full code. Plan of care d/wed patient and bedside in ER.
[2017-11-01] MEDS ORDERED: VICODIN 5-3001 EACH PO (16:44)
[2017-11-01] MEDS ORDERED: PROBIOTIC1 EACH PO (16:44)
[2017-11-01] MEDS ORDERED: MULTIVITAMINS1 EAC9 PO (16:44)
[2017-11-01] MEDS ORDERED: PRILOSEC OTC20 M1 PO (16:45)
[2017-11-01 17:53] LABS: PT 35.9 SEC (9.4-12.5)
[2017-11-01 23:00] VITALS: BP 128/68
[2017-11-02 05:18] LABS: ABSOLUTE BASOPHIL COUNT 0 /CUMM (0.0-0.2); ABSOLUTE EOSINOPHIL COUNT 0 /CUMM (0.0-0.7); ABSOLUTE GRANULOCYTE CT 6.6 /CUMM (1.4-6.5); ABSOLUTE LYMPH COUNT 0.2 /CUMM (1.2-3.4); ABSOLUTE MONOCYTE COUNT 0.1 /CUMM (0.10-0.60); BASOPHIL % 0 % (0.0-2.0); EOSINOPHIL % 0 % (0-5); GRANULOCYTE % 95.3 % (42.2-75.2); MEAN CORPUSCULAR HGB 32.9 PG (27.0-31.0); MEAN CORPUSCULAR VOLUME 96.8 FL (80.0-94.0); PLATELET COUNT 146 /CUMM (130-400); RBC DISTRIBUTION WIDTH 14.5 % (11.5-14.5); RED BLOOD CELL CT 4.23 /CUMM (4.70-6.10)
[2017-11-02 06:27] LABS: WHITE BLOOD CELL COUNT 6.9 /CUMM (4.8-10.8)
[2017-11-02 07:00] VITALS: BP 136/70
--- NOTE | 2017-11-02 08:55 | PN- Housestaff ---
Tereso FERNANDEZ,[facility] 11/02/17 0854: Subjective Follow-up For: CHF exacerbation Asthma exacerbation Tele-Events Since Last Visit: Sinus rhythm with sinus tachycardia Heart rate 75-102. Subjective: Patient continues to have shortness of breath with cough, slightly better since the time of admission. He denies any chest pain, palpitations, fever/chills. Review of Systems Constitutional: Reports: no symptoms. EENTM: Reports: no symptoms. Cardiovascular: Reports: peripheral edema. Respiratory: Reports: cough, short of breath. Gastrointestinal: Reports: no symptoms. Genitourinary: Reports: no symptoms. Musculoskeletal: Reports: no symptoms. Skin: Reports: no symptoms. Neurological/Psychological: Reports: no symptoms. Hematologic/Endocrine: Reports: no symptoms. Immunologic/Allergic: Reports: no symptoms. Objective Last 24 Hrs of Vital Signs/I&O Vital Signs Date Time Temp Pulse Resp B/P B/P Pulse O2 O2 Flow FiO2 Mean Ox Delivery Rate 11/02 0946 92 Nasal 3.0L Cannula 11/02 0818 78 136/70 11/02 0800 95 Nasal 3.0L Cannula 11/02 0700 98.7 78 22 136/70 92 11/02 0015 89 Nasal 2.0L Cannula 11/02 0000 91 Nasal 3.0L Cannula 11/01 2300 98.7 99 18 128/68 91 Nasal 2.0L Cannula 11/01 2243 99 128/68 11/01 1854 Nasal 2.0L Cannula 11/01 1845 86 92 Nasal 2.0L Cannula 11/01 1834 91 Nasal 2.0L Cannula 11/01 1631 97.7 78 16 154/76 95 Nasal 2.0L Cannula 11/01 1547 96 Nasal 2.0L Cannula Intake & Output 11/02 1600 11/02 0800 11/02 0000 Intake Total 211 700 Output Total 650 1225 Balance -439 -525 Intake, IV 11 500 Intake, Oral 200 200 Output, Urine 650 1225 Patient 253 lb 260 lb Weight Weight Bed scale Bed scale Measurement Method Physical Exam General Appearance: Alert, Oriented X3, Cooperative Skin: No Rashes, No Breakdown Cardiovascular: Regular Rate, Normal S1, Normal S2 Lungs: DECREASED BREATH SOUNDS Abdomen: Normal Bowel Sounds, Soft, No Tenderness Extremities: No Clubbing, No Cyanosis, +1 PITTING EDEMA AND CHRONIC VENOUS STASIS CHANGES ON THE LEFT Current Medications: Current Medications Sig/Poppy Start time Last Medication Dose Route Stop Time Status Admin Acetaminophen 650 MG Q6P PRN 11/01 1645 AC PO Albuterol Sulfate 2 PUF Q4-PRN PRN 11/01 2230 AC INH Albuterol Sulfate 3 ML TID 11/01 2200 AC 11/02 INH 1408 Albuterol Sulfate 3 ML ONCE ONE 11/01 1545 DC 11/01 INH 11/01 1546 1547 Amlodipine Besylate 10 MG DAILY 11/02 1000 AC 11/02 PO 0818 Atorvastatin Calcium 20 MG 1700 11/02 1700 AC PO Azithromycin 500 MG DAILY@1800 11/01 1800 AC 11/01 Dextrose/Water 250 ML IV 205 Budesonide/ 2 PUF BID 11/01 2216 AC 11/02 Formoterol Fumarate INH 08 Enoxaparin Sodium 0 .STK-MED ONE 11/01 1756 DC SC Enoxaparin Sodium 40 MG DAILY 11/01 1640 DC SC Furosemide 40 MG 7:30 AM, & 4:30 PM 11/02 0730 AC 11/02 IV 0817 Furosemide 40 MG 7:30 AM, & 4:30 PM 11/02 0730 DC IV Furosemide 20 MG ONCE ONE 11/01 1900 DC 11/01 IV 11/01 1901 2237 Furosemide 0 .STK-MED ONE 11/01 1550 DC IV Furosemide 40 MG ONCE ONE 11/01 1545 DC 11/01 IV 11/01 1546 1624 Guaifenesin 600 MG Q12 PRN 11/01 1900 AC 11/02 PO 1152 Hydrocodone Bitart/ 1 TAB BID PRN 11/02 1200 AC 11/02 Acetaminophen PO 1152 Hydrocodone Bitart/ 1 TAB ONCE ONE 11/01 2100 DC 11/01 Acetaminophen PO 11/01 2101 2238 Ipratropium [place] 2.5 ML TID 11/01 2200 AC 11/02 INH 1408 Magnesium Sulfate 1 GM ONCE ONE 11/01 1445 DC 11/01 Dextrose/Water 100 ML IV 11/01 1844 1453 Melatonin 5 MG AT BEDTIME 11/02 2200 DC PO Melatonin 5 MG AT BEDTIME 11/01 2345 AC 11/02 PO 0124 Methylprednisolone 40 MG Q12 11/02 2200 AC IV Methylprednisolone 40 MG Q8 11/01 2200 DC 11/02 IV 1153 Metoprolol Tartrate 75 MG QAM 11/02 1000 AC 11/02 PO 0817 Metoprolol Tartrate 50 MG BID 11/01 2200 DC PO Metoprolol Tartrate 50 MG QPM 11/01 2200 AC 11/01 PO 2243 Omeprazole 40 MG DAILY AC 11/02 0700 AC 11/02 PO 0457 Last 24 Hrs of Lab/Mamadou Results Last 24 Hrs of Labs/Mics: Laboratory Tests 11/02/17 0445: Anion Gap 10, Estimated GFR > 60, BUN/Creatinine Ratio 32.5 H, Troponin I 0.05, CBC w Diff NO MAN DIFF REQ, RBC 4.23 L, MCV 96.8 H, MCH 32.9 H, MCHC 34.0, RDW 14.5, MPV 9.0, Gran % 95.3 H, Lymphocytes % 3.4 L, Monocytes % 1.3 L, Eosinophils % 0, Basophils % 0, Absolute Granulocytes 6.6 H, Absolute Lymphocytes 0.2 L, Absolute Monocytes 0.1, Absolute Eosinophils 0, Absolute Basophils 0 11/01/17 2030: Troponin I 0.04 11/01/17 1740: Lactic Acid 1.4, PT 35.9 H, INR 3.46 H Assessment/Plan Assessment: Assessment: This is a 75-year-old male, nonsmoker, nonalcoholic, with past medical history of coronary artery disease, CHF, hypertension, hyperlipidemia, [place], heart failure with preserved ejection fraction, aortic medicine, gout, arthritis and asthma came in with chief complaint of worsening shortness of breath since last 4 days, previously being seen at the ER on October 30 and being discharged on by mouth prednisone and Augmentin return back to the emergency department with worsening shortness of breath, especially on exertion. #1 asthma exacerbation * Continue TRC nebulization, continue oxygen to maintain saturation greater than 92%. * Continue IV Solu-Medrol 60 every 8. * Continue Zithromax and for anti-inflammatory effect. #2 CHF exacerbation * ProBNP elevated from baseline. * ACS ruled out with negative troponins and EKG 3 * Continue to monitor intake and output, daily weight * Continue IV Lasix 40 mg twice a day * Cardiology consult; appreciate recommendations * Echocardiogram pending * Continue to monitor electrolytes, replete as necessary while on IV Lasix. # 3 history of peripheral arterial disease * Stable. * Follows up with Dr. shahmohmaddi as outpatient. #4 history of aortic aneurysm/aortic valve replacement on Coumadin. * His INR was noted to be supratherapeutic, and if we continue to hold coumadin * Continue daily INR checks. Today's INR pending. * Dose Coumadin per INR, home discharge is 4.5 mg of Coumadin daily. #5 history of hyperlipidemia, coronary artery disease, hypertension * Continue atorvastatin, metoprolol 25 mg in the morning and 50 mg in the evening, continue amlodipine. DVT prophylaxis with Coumadin. Heart healthy diet. Pain pathway, will continue Vicodin which he takes at home. full code. Problem List: 1. Asthma exacerbation 2. CHF (congestive heart failure) Pain Ratin Pain Location: None Pain Goal: Remain pain free Pain Plan: None Tomorrow's Labs & Rationales: BEP(on Lasix) NasimAdalidkaitlynn 11/02/17 1205: Attending MD Review Statement Attending Statement Attending MD Statement: examined this patient, discuss w/resident/PA/WIRE SPLICER, agreed w/resident/PA/WIRE SPLICER, discussed with family, reviewed EMR data (avail), discussed with nursing, discussed with case mgmt, reviewed images, amended to note Attending Assessment/Plan: Patient admitted to telemetry monitoring for dypnea at rest possible asthma exacerbation and possible CHF exacerbation with preserved EF. Negative serial cardiac enzymes, cardiology consultexd, iv lasix 40 q 12, iv steroids 40 q 12, azithromycin, ECHO as per cardiology f/u. Monitor I/O, daily weights. Resume home meds gi/dvt prophylaxis full code. Plan of care d/wed patient and bedside in ER.
--- NOTE | 2017-11-02 11:26 | Cons- Cardiology ---
General Information and HPI Consulting Request Date of Consult: 11/02/17 Requested By: Candido Rouse MD Reason for Consult: CHF Source of Information: patient, old records History of Present Illness: This is a pleasant 77-year-old male with a past medical history of previous mechanical aortic valve with aortic aneurysm repair and CABG, heart failure with preserved ejection fraction, previous pericardial window, asthma, and hypertension who presents to [facility] with a chief complaint of progressive shortness of breath over the last few days. The patient did note some orthopnea. Denied significant cough or subjective fever. Denies rhinorrhea. No chest pain or palpitations. He is mostly compliant with his outpatient Lasix but does forget a dose occasionally. He had been seen in the emergency room earlier this week and diagnosed with bronchitis. Denies any headache, slurring of speech, or syncope. He does tell me he has some chronic edema in his left leg. Allergies/Medications Allergies: Coded Allergies: No Known Allergies (11/01/17) Home Med List: Albuterol Sulfate (Proair Hfa) 90 MCG HFA.AER.AD 2 PUF INH Q4-6 PRN PRN ASTHMA (Reported) Albuterol Sulfate 2.5 MG/3 ML (0.083 %) VIAL.NEB 1 Vial INH/TORI Q4P PRN SHORTNESS OF BREATH (Reported) Amlodipine Besylate 10 MG TABLET 1 TAB PO DAILY BP (Reported) Budesonide/Formoterol Fumarate (Symbicort 160-4.5 Mcg Inhaler) 160 MCG-4.5 MCG/ ACTUATION HFA.AER.AD 2 PUF INH BID COPD (Reported) Furosemide 40 MG TABLET 1 TAB PO DAILY SHORTNESS OF BREATH . Hydrocodone/Acetaminophen (Vicodin 5-300 MG Tablet) 5 MG-300 MG TABLET 1 TAB PO AD PRN PAIN (Reported) Ipratropium/Albuterol Sulfate (Iprat-Albut 0.5-3(2.5) MG/3 Ml) 0.5 MG-3 MG (2.5 MG BASE)/3 ML AMPUL.NEB 1 VIAL INH Q6HR PRN WHEEZING Lactobacillus Acidophilus (Probiotic) (Unknown Strength) CAPSULE (Unknown Dose ) PO DAILY PROBIOTIC (Reported) Metoprolol Tartrate 50 MG TABLET 1 TAB PO BID HEART (Reported) Multiple Vitamin (Multivitamins) 1 EACH TABLET 1 TAB PO DAILY SUPPLEMENT ( Reported) Omeprazole Magnesium (Prilosec Otc) 20 MG TABLET.DR 1 TAB PO DAILY GI ( Reported) Prednisone 10 MG TABLET 0 PO DAILY asthma 5 tabs po day 1 4 tabs po day 2 3 tabs po day 3 2 tabs po day 4 1 tab po day 5 and 6 Rosuvastatin Calcium (Crestor) 5 MG TABLET 1 TAB PO DAILY CHOLESTEROL ( Reported) Tramadol HCl 50 MG TABLET 1 TAB PO Q6P PRN PAIN (Reported) Warfarin Sodium (Coumadin) (Unknown Strength) TABLET 4.5 MG PO DAILY BLOOD THINNER (Reported) Current Medications: Current Medications Sig/Poppy Start time Last Medication Dose Route Stop Time Status Admin Acetaminophen 650 MG Q6P PRN 11/01 1645 AC PO Albuterol Sulfate 2 PUF Q4-PRN PRN 11/01 2230 AC INH Albuterol Sulfate 3 ML TID 11/01 2200 AC 11/02 INH 0943 Albuterol Sulfate 3 ML ONCE ONE 11/01 1545 DC 11/01 INH 11/01 1546 1547 Albuterol Sulfate 3 ML ONCE ONE 11/01 1445 DC 11/01 INH 11/01 1446 1443 Amlodipine Besylate 10 MG DAILY 11/02 1000 AC 11/02 PO 0818 Atorvastatin Calcium 20 MG 1700 11/02 1700 AC PO Azithromycin 500 MG DAILY@1800 11/01 1800 AC 11/01 Dextrose/Water 250 ML IV 205 Budesonide/ 2 PUF BID 11/01 2216 AC 11/02 Formoterol Fumarate INH 0818 Enoxaparin Sodium 0 .STK-MED ONE 11/01 1756 DC SC Enoxaparin Sodium 40 MG DAILY 11/01 1640 DC SC Furosemide 40 MG 7:30 AM, & 4:30 PM 11/02 0730 AC 11/02 IV 0817 Furosemide 40 MG 7:30 AM, & 4:30 PM 11/02 0730 DC IV Furosemide 20 MG ONCE ONE 11/01 1900 DC 11/01 IV 11/01 1901 2237 Furosemide 0 .STK-MED ONE 11/01 1550 DC IV Furosemide 40 MG ONCE ONE 11/01 1545 DC 11/01 IV 11/01 1546 1624 Guaifenesin 600 MG Q12 PRN 11/01 1900 AC 11/01 PO 2238 Hydrocodone Bitart/ 1 TAB ONCE ONE 11/01 2100 DC 11/01 Acetaminophen PO 11/01 2101 2238 Ipratropium [place] 2.5 ML TID 11/01 2200 AC 11/02 INH 0943 Magnesium Sulfate 1 GM ONCE ONE 11/01 1445 DC 11/01 Dextrose/Water 100 ML IV 11/01 1844 1453 Melatonin 5 MG AT BEDTIME 11/02 2200 DC PO Melatonin 5 MG AT BEDTIME 11/01 2345 AC 11/02 PO 0124 Methylprednisolone 40 MG Q8 11/01 2200 AC 11/02 IV 0457 Metoprolol Tartrate 75 MG QAM 11/02 1000 AC 11/02 PO 0817 Metoprolol Tartrate 50 MG BID 11/01 2200 DC PO Metoprolol Tartrate 50 MG QPM 11/01 2200 AC 11/01 PO 2243 Omeprazole 40 MG DAILY AC 11/02 0700 AC 11/02 PO 0457 Review of Systems Review of Systems: Review of systems as per HPI. The remainder of a 10 point review of systems was reviewed and was otherwise negative. 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 Home Who Do You Live With? spouse Services at Home: None Smoking Status: Never Smoked ETOH Use: occasional use Illicit Drug Use: denies illicit drug use Functional Ability ADLs Independent: dressing, eating, toileting, bathing. Ambulation: independent IADLs Independent: shopping, housework, finances, food prep, telephone, transportation , medication admin. ECHO Results (as available) EF% 55 Exam & Diagnostic Data Vital Signs and I&O Vital Signs Date Time Temp Pulse Resp B/P B/P Pulse O2 O2 Flow FiO2 Mean Ox Delivery Rate 11/02 0946 92 Nasal 3.0L Cannula 02/18 0818 78 136/70 11/02 0800 95 Nasal 3.0L Cannula 11/02 0700 98.7 78 22 136/70 92 11/02 0015 89 Nasal 2.0L Cannula 11/02 0000 91 Nasal 3.0L Cannula 11/01 2300 98.7 99 18 128/68 91 Nasal 2.0L Cannula 11/01 2243 99 128/68 11/01 1854 Nasal 2.0L Cannula 11/01 1845 86 92 Nasal 2.0L Cannula 11/01 1834 91 Nasal 2.0L Cannula 11/01 1631 97.7 78 16 154/76 95 Nasal 2.0L Cannula 11/01 1547 96 Nasal 2.0L Cannula 11/01 1443 Nasal 2.0L Cannula 11/01 1421 92 Nasal 2.0L Cannula 11/01 1419 96.1 71 22 168/78 89 Intake & Output 11/02 1600 11/02 0800 11/02 0000 11/01 1600 11/01 0800 11/01 0000 Intake Total 211 700 Output Total 650 1225 Balance -439 -525 Intake, IV 11 500 Intake, Oral 200 200 Output, Urine 650 1225 Patient 253 lb 260 lb 248 lb Weight Weight Bed scale Bed scale Reported by Patient Measurement Method Physical Exam: General: no apparent distress. Alert. On nasal cannula Eyes: No obvious scleral icterus. HEENT: No jugular venous distention or abnormal jugular venous pulsations. Cardiovascular: Normal intensity S1/S2. Sternal scar, mechanical valve sounds Respiratory: No rales or rhonchi Abdomen: Soft, nontender with no guarding or rebound tenderness. Musculoskeletal: No clubbing or cyanosis noted; 1+ lower extremity edema greater on the left Skin: Warm Neurologic: No gross focal deficits noted. Lymph: No gross lymphadenopathy. Labs/Mamadou Results: Laboratory Tests 11/02 11/01 11/01 0445 2030 1740 Chemistry Sodium (137 - 145 mmol/L) 135 L Potassium (3.5 - 5.1 mmol/L) 4.0 Chloride (98 - 107 mmol/L) 98 Carbon Dioxide (22 - 30 mmol/L) 27 Anion Gap (5 - 16) 10 BUN (9 - 20 mg/dL) 26 H Creatinine (0.7 - 1.2 mg/dL) 0.8 Estimated GFR (>60 ml/min) > 60 BUN/Creatinine Ratio (7 - 25 %) 32.5 H Lactic Acid (0.7 - 2.1 mmol/L) 1.4 Troponin I (<0.11 ng/ml) 0.05 0.04 Coagulation PT (9.4 - 12.5 SEC) 35.9 H INR (0.90 - 1.17) 3.46 H Hematology CBC w Diff NO MAN DIFF REQ WBC (4.8 - 10.8 /CUMM) 6.9 RBC (4.70 - 6.10 /CUMM) 4.23 L Hgb (14.0 - 18.0 G/DL) 13.9 L Hct (42 - 52 %) 41.0 L MCV (80.0 - 94.0 FL) 96.8 H MCH (27.0 - 31.0 PG) 32.9 H MCHC (33.0 - 37.0 G/DL) 34.0 RDW (11.5 - 14.5 %) 14.5 Plt Count (130 - 400 /CUMM) 146 MPV (7.4 - 10.4 FL) 9.0 Gran % (42.2 - 75.2 %) 95.3 H Lymphocytes % (20.5 - 51.1 %) 3.4 L Monocytes % (1.7 - 9.3 %) 1.3 L Eosinophils % (0 - 5 %) 0 Basophils % (0.0 - 2.0 %) 0 Absolute Granulocytes (1.4 - 6.5 /CUMM) 6.6 H Absolute Lymphocytes (1.2 - 3.4 /CUMM) 0.2 L Absolute Monocytes (0.10 - 0.60 /CUMM) 0.1 Absolute Eosinophils (0.0 - 0.7 /CUMM) 0 Absolute Basophils (0.0 - 0.2 /CUMM) 0 11/01 1440 Chemistry Sodium (137 - 145 mmol/L) 142 Potassium (3.5 - 5.1 mmol/L) 4.2 Chloride (98 - 107 mmol/L) 102 Carbon Dioxide (22 - 30 mmol/L) 26 Anion Gap (5 - 16) 13 BUN (9 - 20 mg/dL) 28 H Creatinine (0.7 - 1.2 mg/dL) 0.9 Estimated GFR (>60 ml/min) > 60 BUN/Creatinine Ratio (7 - 25 %) 31.1 H Glucose (65 - 99 mg/dL) 142 H Lactic Acid (0.7 - 2.1 mmol/L) 3.5 H Calcium (8.4 - 10.2 mg/dL) 9.7 Total Bilirubin (0.2 - 1.3 mg/dL) 0.8 AST (17 - 59 U/L) 45 ALT (21 - 72 U/L) 34 Alkaline Phosphatase (< 127 U/L) 58 Troponin I (<0.11 ng/ml) 0.04 Hgs-R-Xolpehokbko Pept (<125 pg/mL) 2600 H Total Protein (6.3 - 8.2 g/dL) 7.1 Albumin (3.5 - 5.0 g/dL) 4.6 Globulin (1.9 - 4.2 gm/dL) 2.5 Albumin/Globulin Ratio (1.1 - 2.2 %) 1.8 Hematology CBC w Diff MAN DIFF ORDERED WBC (4.8 - 10.8 /CUMM) 8.2 RBC (4.70 - 6.10 /CUMM) 4.49 L Hgb (14.0 - 18.0 G/DL) 14.7 Hct (42 - 52 %) 43.4 MCV (80.0 - 94.0 FL) 96.8 H MCH (27.0 - 31.0 PG) 32.7 H MCHC (33.0 - 37.0 G/DL) 33.8 RDW (11.5 - 14.5 %) 15.1 H Plt Count (130 - 400 /CUMM) 184 MPV (7.4 - 10.4 FL) 8.9 Gran % (42.2 - 75.2 %) 90.9 H Lymphocytes % (20.5 - 51.1 %) 3.2 L Monocytes % (1.7 - 9.3 %) 5.9 Eosinophils % (0 - 5 %) 0 Basophils % (0.0 - 2.0 %) 0 Absolute Granulocytes (1.4 - 6.5 /CUMM) 7.5 H Absolute Lymphocytes (1.2 - 3.4 /CUMM) 0.3 L Absolute Monocytes (0.10 - 0.60 /CUMM) 0.5 Absolute Eosinophils (0.0 - 0.7 /CUMM) 0 Absolute Basophils (0.0 - 0.2 /CUMM) 0 Platelet Estimate (ADEQUATE) VERIFIED BY SMEAR Anisocytosis 1+ Diagnostic Data EKG Results Tracing was personally reviewed and shows sinus rhythm with PACs and intraventricular conduction delay, with nonspecific STT abnormality CXR Results 1. No acute pulmonary findings compared to 01/27/2018. 2. Cardiomegaly. Other Results Telemetry tracings were personally reviewed and shows sinus rhythm with 3 beat ventricular run Assessment/Plan Assessment/Plan 1. Acute on chronic heart failure with preserved ejection fraction 2. Asthma with possible exacerbation 3. History of coronary artery disease with prior CABG/aortic aneurysm repair/ mechanical aortic valve on Coumadin 4. History of previous pericardial window 5. Hypertension The patient's symptoms may have been multifactorial bouts agree with the IV Lasix as he may have had a component of volume overload; strict I's and O's should be followed along with daily weights and metabolic panels. No evidence of acute coronary syndrome. An echocardiogram is pending. Continue on Coumadin given his history of mechanical aortic valve. 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 Bam Velazquez MD [facility] Consult Acknowledgment - Thank you for your consult request.
[2017-11-02 13:50] VITALS: BP 120/60
[2017-11-02 16:45] LABS: PT 20.9 SEC (9.4-12.5)
[2017-11-02 21:30] VITALS: BP 132/64
[2017-11-03 06:00] VITALS: BP 124/52
--- NOTE | 2017-11-03 07:33 | PN- Housestaff ---
See Addendum Subjective Follow-up For: Asthma exacerbation Tele-Events Since Last Visit: NSR, PVCs, tripelts HR 73-129 Subjective: Patient has no complaints. No acute events overnight. Review of Systems Constitutional: Reports: see HPI. Objective Last 24 Hrs of Vital Signs/I&O Vital Signs Date Time Temp Pulse Resp B/P B/P Pulse O2 O2 Flow FiO2 Mean Ox Delivery Rate 11/03 1600 Nasal 3.0L Cannula 11/03 1400 98.8 90 20 130/80 94 Nasal 3.0L Cannula 11/03 0820 90 Nasal 3.0L Cannula 11/03 0805 104 124/52 11/03 0800 92 Nasal 3.0L Cannula 11/03 0600 98.4 89 22 124/52 92 Nasal 3.0L Cannula 11/03 0553 94 Nasal 3.0L Cannula 11/02 2130 98.9 104 18 132/64 91 Nasal 3.0L Cannula 11/02 2121 91 Nasal 3.0L Cannula 11/02 2019 105 132/64 11/02 1933 95 Nasal 3.0L Cannula Intake & Output 11/03 1600 11/03 0800 11/03 0000 Intake Total 500 Output Total 675 725 Balance -175 -725 Intake, Oral 500 Output, Urine 675 725 Physical Exam General Appearance: Alert, Oriented X3, Cooperative, No Acute Distress Cardiovascular: Regular Rate, Normal S1, Normal S2 Lungs: BL wheezing Abdomen: Normal Bowel Sounds, Soft, No Tenderness Extremities: 2+ pitting edema in LLE Current Medications: Current Medications Sig/Poppy Start time Last Medication Dose Route Stop Time Status Admin Acetaminophen 650 MG Q6P PRN 11/01 1645 AC PO Albuterol Sulfate 2 PUF Q4-PRN PRN 11/01 2230 AC 11/03 INH 1205 Albuterol Sulfate 3 ML TID 11/01 2200 AC 11/03 INH 1319 Amlodipine Besylate 10 MG DAILY 11/02 1000 AC 11/03 PO 0805 Atorvastatin Calcium 20 MG 1700 11/02 1700 AC 11/03 PO 1539 Azithromycin 500 MG DAILY@1800 11/01 1800 AC 11/02 Dextrose/Water 250 ML IV 1700 Budesonide/ 2 PUF BID 11/01 2216 AC 11/03 Formoterol Fumarate INH 0807 Enoxaparin Sodium 40 MG ONCE ONE 11/03 1400 DC SC 11/03 1401 Furosemide 40 MG DAILY 11/03 1345 AC 11/03 PO 1444 Furosemide 40 MG 7:30 AM, & 4:30 PM 11/02 0730 DC 11/03 IV 0652 Guaifenesin 600 MG .STK-MED ONE 11/03 0812 DC PO 11/03 0813 Guaifenesin 600 MG .STK-MED ONE 11/02 2010 DC PO 11/02 2011 Guaifenesin 600 MG Q12 PRN 11/01 1900 AC 11/03 PO 0814 Hydrocodone Bitart/ 2 TAB BID PRN 11/03 1302 AC Acetaminophen PO Hydrocodone Bitart/ 1 TAB BID PRN 11/02 1200 DC 11/03 Acetaminophen PO 0805 Ipratropium [place] 2.5 ML TID 11/01 2200 AC 11/03 INH 1319 Melatonin 5 MG AT BEDTIME 11/01 2345 AC 11/02 PO 2015 Methylprednisolone 40 MG Q12 11/02 2200 AC 11/03 IV 0804 Metoprolol Tartrate 75 MG QAM 11/02 1000 AC 11/03 PO 0805 Metoprolol Tartrate 50 MG QPM 11/01 2200 AC 11/02 PO 2020 Montelukast Sodium 10 MG AT BEDTIME 11/03 2200 AC PO Omeprazole 40 MG DAILY AC 11/02 0700 AC 11/03 PO 0551 Warfarin Sodium 6 MG COUMADIN 1700 ONE 11/03 1700 DC 11/03 PO 11/03 1701 1541 Warfarin Sodium 4.5 MG ONCE ONE 11/02 1730 DC 11/02 PO 11/02 1731 1820 Last 24 Hrs of Lab/Mamadou Results Last 24 Hrs of Labs/Mics: Laboratory Tests 11/03/17 0625: Anion Gap 8, Estimated GFR > 60, BUN/Creatinine Ratio 34.4 H, PT 17.8 H, INR 1.70 H Assessment/Plan Assessment: Mr. Avery is a 75-year-old male, nonsmoker, nonalcoholic, with past medical history of coronary artery disease, CHF, hypertension, hyperlipidemia, AR, heart failure with preserved ejection fraction, aortic medicine, gout, arthritis and asthma came in with chief complaint of worsening shortness of breath since last 4 days, previously being seen at the ER on October 30 and being discharged on by mouth prednisone and Augmentin return back to the emergency department with worsening shortness of breath, especially on exertion. Asthma exacerbation CXR showed no acute pulmonary findings with cardiomegaly. ECHO showed EF > 60% with mechanical prosthesis aortic valve. * Continue TRC nebulization, continue oxygen to maintain saturation greater than 92%. * Continue IV Solu-Medrol 40q12 * Continue IV Zithromax and for anti-inflammatory effect. * Cardiology and Pulmonolgy has r/o CHF exacerbation History of aortic aneurysm/aortic valve replacement on Coumadin His INR was noted to be subtherapeutic today, 1.70. Patient refused Lovenox and he was explained the risks vs benefits. * Give 6 mg coumadin and Lovenox 40 mg * Dose Coumadin per INR History of hyperlipidemia, coronary artery disease, hypertension * Continue atorvastatin, metoprolol 25 mg in the morning and 50 mg in the evening, continue amlodipine. Problem List: 1. Asthma exacerbation Pain Ratin Pain Location: BLE Pain Goal: Pain 4 or less Pain Plan: Hydrocodone Tomorrow's Labs & Rationales: INR for Coumadin dosing
[2017-11-03 08:28] LABS: PT 17.8 SEC (9.4-12.5)
--- NOTE | 2017-11-03 09:12 | ECHOCARDIOGRAM REPORT ---
CANDIDA VALERO Age: 77 : 1940 Gender: M Exam Date: 11/02/2017 13:03 Exam Location: [address] Ht (in): 74 Wt (lb): 248 BSA: 2.45 BP: 136 / 70 Ordering Physician: Ketan Salmeron Referring Physician: Bear Higginbotham MD Chief, SoC Technologist: [facility] Room Number: 177-01 Indications: SHORTNESS OF BREATH Rhythm: Sinus Technical Quality: Good FINDINGS Left Ventricle Mild left ventricular dilatation. Mild concentric left ventricular hypertrophy. Normal left ventricular ejection fraction visually estimated at > 60%. There is a small area of posterobasal hypo-to akinesis seen. Normal left ventricular diastolic filling pattern for age. Right Ventricle The right ventricle is normal in size and function. Right Atrium The right atrium is normal in size. Left Atrium Mild to moderate left atrial dilatation. Mitral Valve Mild thickening/calcification of the mitral valve leaflets. Mild mitral annular calcification. Trace mitral regurgitation. Aortic Valve The aortic valve is a mechanical prosthesis which is not well visualized. There is a mild to moderate gradient across the valve of mean about 20 mmHg. No aortic regurgitation. Tricuspid Valve The tricuspid valve is normal in structure and function. There is trace tricuspid regurgitation. Right ventricular systolic pressure estimated to be elevated at 40 mmHg. Pulmonic Valve Structurally normal pulmonic valve. Trace pulmonic regurgitation. . Pericardium Normal pericardium without effusion. No pleural effusion. Great Vessels Normal aortic root dimension. The aortic arch and great vessels are well seen and are normal. CONCLUSIONS Mild left ventricular dilatation. Mild concentric left ventricular hypertrophy. Normal left ventricular ejection fraction visually estimated at > 60%. There is a small area of posterobasal hypo-to akinesis seen. Normal left ventricular diastolic filling pattern for age. Mild to moderate left atrial dilatation. Mild thickening/calcification of the mitral valve leaflets. Mild mitral annular calcification. Trace mitral regurgitation. 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 There is a mild to moderate gradient across the valve of mean about 20 mmHg. No aortic regurgitation. Normal aortic root dimension. Right ventricular systolic pressure estimated to be elevated at 40 mmHg. Bear Higginbotham M.D. (Electronically Signed) Final Date: 03 November 2017 09:11 MEASUREMENTS (Male / Female) Normal Values 2D ECHO LV Diastolic Diameter PLAX 6.5 cm 4.2 - 5.9 / 3.9 - 5.3 cm LV Systolic Diameter PLAX 4.6 cm 2.1 - 4.0 cm LV Fractional Shortening PLAX 29.2 % 25 - 46 % LV Ejection Fraction 2D Teich 54.9 % IVS Diastolic Thickness 1.2 cm LVPW Diastolic Thickness 1.3 cm LV Relative Wall Thickness 0.4 RV Internal Dim ED PLAX 3.6 cm 1.9 - 3.8 cm LA Systolic Diameter LX 4.4 cm 3.0 - 4.0 / 2.7 - 3.8 cm RVOT Diameter 2.1 cm 2.5 - 2.9 cm RV Diastolic Area 3.5 cm 11 - 28 cm Ascending Aorta Diameter 2.3 cm DOPPLER AV Peak Velocity 271.0 cm/s AV Peak Gradient 29.4 mmHg AV Mean Velocity 206.0 cm/s AV Mean Gradient 19.0 mmHg AV Velocity Time Integral 58.0 cm LVOT Peak Velocity 98.7 cm/s LVOT Peak Gradient 3.9 mmHg LVOT Mean Velocity 73.9 cm/s LVOT Mean Gradient 2.0 mmHg LVOT Velocity Time Integral 24.8 cm MV Peak Velocity 111.0 cm/s MV Peak Gradient 4.9 mmHg MV Mean Velocity 60.1 cm/s MV Mean Gradient 2.0 mmHg Mitral E Point Velocity 99.7 cm/s Mitral A Point Velocity 75.3 cm/s Mitral E to A Ratio 1.3 MV PHT Velocity 98.7 cm/s MV Deceleration [place] 440.0 cm/s MV Pressure Half Time 67.3 ms MV Area PHT 3.3 cm MV Deceleration Time 373.0 ms TV Peak Velocity 313.0 cm/s TV Peak E Velocity 54.1 cm/s TV Peak A Velocity 64.3 cm/s TV E to A Ratio 0.8 Right Atrial Pressure 3.0 mmHg PV Peak Velocity 120.5 cm/s PV Peak Gradient 5.8 mmHg PV Mean Velocity 91.3 cm/s PV Mean Gradient 3.5 mmHg PV Velocity Time Integral 27.8 cm PV Area Cont Eq vti 2.5 cm PV Area Cont Eq pk 2.2 cm LV E' Lateral Velocity 11.2 cm/s Mitral E to LV E' Lateral Ratio 8.9 LV E' Septal Velocity 6.1 cm/s Mitral E to LV E' Septal Ratio 16.2
--- NOTE | 2017-11-03 09:48 | PN- Cardiology ---
Subjective Subjective: The patient is still feeling short of breath and wheezy with any exertion. He has no chest pain. His enzymes are negative. His chest x-ray did not show any definite congestive heart failure. His edema is improved. His BUN is up a little bit. Objective Vital Signs and I&Os Vital Signs Date Time Temp Pulse Resp B/P B/P Pulse O2 O2 Flow FiO2 Mean Ox Delivery Rate 11/03 08 90 Nasal 3.0L Cannula 11/03 0805 104 124/52 11/03 0600 98.4 89 22 124/52 92 Nasal 3.0L Cannula 11/03 0553 94 Nasal 3.0L Cannula 11/02 2130 98.9 104 18 132/64 91 Nasal 3.0L Cannula 11/02 212 91 Nasal 3.0L Cannula 11/02 2019 105 132/64 11/02 1933 95 Nasal 3.0L Cannula 11/02 1350 98.3 90 20 120/60 90 Nasal Cannula Intake & Output 11/03 1600 11/03 0800 11/03 0000 11/02 1600 11/02 0800 11/02 0000 Intake Total 460 211 700 Output Total 725 772 325 6762 Balance -725 -240 -439 -525 Intake, IV 10 11 500 Intake, Oral 450 200 200 Output, Urine 725 815 796 2302 Patient 253 lb 260 lb Weight Weight Bed scale Bed scale Measurement Method Physical Exam: He is mildly short of breath at rest HEENT exam normal Chest moderate wheezing and rhonchi Heart regular rhythm with occasional extrasystole and prominent prosthetic valve sounds and a soft systolic murmur Abdomen benign Extremities minimal edema and some chronic skin changes on the left. Current Medications: Current Medications Sig/Poppy Start time Last Medication Dose Route Stop Time Status Admin Acetaminophen 650 MG Q6P PRN 11/01 1645 AC PO Albuterol Sulfate 2 PUF Q4-PRN PRN 11/01 2230 AC INH Albuterol Sulfate 3 ML TID 11/01 2200 AC 11/03 INH 0820 Amlodipine Besylate 10 MG DAILY 11/02 1000 AC 11/03 PO 0805 Atorvastatin Calcium 20 MG 1700 11/02 1700 AC 11/02 PO 1659 Azithromycin 500 MG DAILY@1800 11/01 1800 AC 11/02 Dextrose/Water 250 ML IV 1700 Budesonide/ 2 PUF BID 11/01 2216 AC 02/19 Formoterol Fumarate INH 0807 Furosemide 40 MG 7:30 AM, & 4:30 PM 11/02 0730 AC 11/03 IV 0652 Furosemide 40 MG 7:30 AM, & 4:30 PM 11/02 0730 DC IV Guaifenesin 600 MG .STK-MED ONE 11/02 2009 DC PO 11/02 2010 Guaifenesin 600 MG Q12 PRN 11/01 1900 AC 11/03 PO 0814 Hydrocodone Bitart/ 1 TAB BID PRN 11/02 1200 AC 11/03 Acetaminophen PO 0805 Ipratropium [place] 2.5 ML TID 11/01 2200 AC 11/03 INH 0820 Melatonin 5 MG AT BEDTIME 11/01 2345 AC 11/02 PO 2015 Methylprednisolone 40 MG Q12 11/02 2200 AC 11/03 IV 0804 Methylprednisolone 40 MG Q8 11/01 2200 CO 11/02 IV 1153 Metoprolol Tartrate 75 MG QAM 11/02 1000 AC 11/03 PO 0805 Metoprolol Tartrate 50 MG QPM 11/01 2200 AC 11/02 PO 2020 Omeprazole 40 MG DAILY AC 11/02 0700 AC 11/03 PO 0551 Warfarin Sodium 4.5 MG ONCE ONE 11/02 1730 DC 11/02 PO 11/02 1731 1820 Results Last 48 Hrs of Labs/Mics: Laboratory Tests 11/03/17 0625: Anion Gap 8, Estimated GFR > 60, BUN/Creatinine Ratio 34.4 H, PT 17.8 H, INR 1.70 H 11/02/17 1530: PT 20.9 H, INR 2.00 H 11/02/17 0445: Anion Gap 10, Estimated GFR > 60, BUN/Creatinine Ratio 32.5 H, Troponin I 0.05, CBC w Diff NO MAN DIFF REQ, RBC 4.23 L, MCV 96.8 H, MCH 32.9 H, MCHC 34.0, RDW 14.5, MPV 9.0, Gran % 95.3 H, Lymphocytes % 3.4 L, Monocytes % 1.3 L, Eosinophils % 0, Basophils % 0, Absolute Granulocytes 6.6 H, Absolute Lymphocytes 0.2 L, Absolute Monocytes 0.1, Absolute Eosinophils 0, Absolute Basophils 0 11/01/17 2030: Troponin I 0.04 11/01/17 1740: Lactic Acid 1.4, PT 35.9 H, INR 3.46 H 11/01/17 1440: Anion Gap 13, Estimated GFR > 60, BUN/Creatinine Ratio 31.1 H, Glucose 142 H, Lactic Acid 3.5 H, Calcium 9.7, Total Bilirubin 0.8, AST 45, ALT 34, Alkaline Phosphatase 58, Troponin I 0.04, [id number] Pept 2600 H, Total Protein 7.1, Albumin 4.6, Globulin 2.5, Albumin/Globulin Ratio 1.8, CBC w Diff MAN DIFF ORDERED, RBC 4.49 L, MCV 96.8 H, MCH 32.7 H, MCHC 33.8, RDW 15.1 H, MPV 8.9, Gran % 90.9 H, Lymphocytes % 3.2 L, Monocytes % 5.9, Eosinophils % 0, Basophils % 0, Absolute Granulocytes 7.5 H, Absolute Lymphocytes 0.3 L, Absolute Monocytes 0.5, Absolute Eosinophils 0, Absolute Basophils 0, Platelet Estimate VERIFIED BY SMEAR, Anisocytosis 1+ Recent Imaging Studies: CONCLUSIONS Mild left ventricular dilatation. Mild concentric left ventricular hypertrophy. Normal left ventricular ejection fraction visually estimated at > 60%. There is a small area of posterobasal hypo-to akinesis seen. Normal left ventricular diastolic filling pattern for age. Mild to moderate left atrial dilatation. Mild thickening/calcification of the mitral valve leaflets. Mild mitral annular calcification. Trace mitral regurgitation. 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 There is a mild to moderate gradient across the valve of mean about 20 mmHg. No aortic regurgitation. Normal aortic root dimension. Right ventricular systolic pressure estimated to be elevated at 40 mmHg. Bear Higginbotham M.D. (Electronically Signed) Final Date: 03 November 2017 09:11 Assessment/Plan Assessment/Plan The patient is still short of breath and has a lot of wheezing and rhonchi. I think this is mostly an acute bronchitic episode. I would recommend changing his Lasix back to his oral maintenance dose. Since his enzymes are negative he can come off telemetry. Note his echocardiogram does not show any changes from baseline and still shows good left ventricular systolic function and acceptable valvular function. Suggest pulmonary consultation. Continue telemetry? No
--- NOTE | 2017-11-03 11:47 | Cons- Pulmonary ---
General Information and HPI Consulting Request Date of Consult: 11/03/17 Requested By: Hemal Reason for Consult: Shortness of breath History of Present Illness: Patient is 77-year-old who carries the diagnosis of asthma and aortic valve disease. He developed increasing cough shortness of breath several days ago and failed to improve with outpatient treatment. Reports having been seen in the emergency room and discharged home only to failed to improve and return requiring admission with evidence of desaturation in need of supplemental oxygen his chest x-ray was unrevealing murmurs BMP was elevated at 2600. Quick fluid was negative. He continues remain shortness of breath with wheezing with minimal sputum. Allergies/Medications Allergies: Coded Allergies: No Known Allergies (11/01/17) Home Med List: Albuterol Sulfate (Proair Hfa) 90 MCG HFA.AER.AD 2 PUF INH Q4-6 PRN PRN ASTHMA (Reported) Albuterol Sulfate 2.5 MG/3 ML (0.083 %) VIAL.NEB 1 Vial INH/TORI Q4P PRN SHORTNESS OF BREATH (Reported) Amlodipine Besylate 10 MG TABLET 1 TAB PO DAILY BP (Reported) Budesonide/Formoterol Fumarate (Symbicort 160-4.5 Mcg Inhaler) 160 MCG-4.5 MCG/ ACTUATION HFA.AER.AD 2 PUF INH BID COPD (Reported) Furosemide 40 MG TABLET 1 TAB PO DAILY SHORTNESS OF BREATH . Hydrocodone/Acetaminophen (Vicodin 5-300 MG Tablet) 5 MG-300 MG TABLET 1 TAB PO AD PRN PAIN (Reported) Ipratropium/Albuterol Sulfate (Iprat-Albut 0.5-3(2.5) MG/3 Ml) 0.5 MG-3 MG (2.5 MG BASE)/3 ML AMPUL.NEB 1 VIAL INH Q6HR PRN WHEEZING Lactobacillus Acidophilus (Probiotic) (Unknown Strength) CAPSULE (Unknown Dose ) PO DAILY PROBIOTIC (Reported) Metoprolol Tartrate 50 MG TABLET 1 TAB PO BID HEART (Reported) Multiple Vitamin (Multivitamins) 1 EACH TABLET 1 TAB PO DAILY SUPPLEMENT ( Reported) Omeprazole Magnesium (Prilosec Otc) 20 MG TABLET.DR 1 TAB PO DAILY GI ( Reported) Prednisone 10 MG TABLET 0 PO DAILY asthma 5 tabs po day 1 4 tabs po day 2 3 tabs po day 3 2 tabs po day 4 1 tab po day 5 and 6 Rosuvastatin Calcium (Crestor) 5 MG TABLET 1 TAB PO DAILY CHOLESTEROL ( Reported) Tramadol HCl 50 MG TABLET 1 TAB PO Q6P PRN PAIN (Reported) Warfarin Sodium (Coumadin) (Unknown Strength) TABLET 4.5 MG PO DAILY BLOOD THINNER (Reported) Review of Systems Review of Systems Constitutional: Denies: chills, fever. Cardiovascular: Reports: edema. Denies: chest pain. Respiratory: Reports: cough, short of breath, wheezing. Denies: hemoptysis. GI: Denies: abdominal pain, constipation, diarrhea, melena. Past History Travel History Traveled to [place] past 21 day No Medical History Blood Transfusion Hx: Yes Neurological: status post nerve damage right arm/hand/fingers EENT: NONE Cardiovascular: CAD, CHF, hypertension, hyperlipidemia, myocardial infarction, AORTIC ANEURSYM Respiratory: asthma Gastrointestinal: GERD Hepatic: NONE Renal: benign prost hyperplasia Musculoskeletal: gout, septic arthritis (left ankle 2000) Psychiatric: NONE Endocrine: NONE Blood Disorders: NONE Cancer(s): NONE [employer]ER/Reproductive: NONE Surgical History Surgical History: CABG, cholecystectomy, status post aortic valve replacement 2013 status post repair of an aortic aneurysm 2013 status post excision of the second metatarsal head of the right foot Family History Relations & Conditions If Any: FATHER FH: pancreatic cancer Psychosocial History Where Do You Live? Home Who Do You Live With? spouse Services at Home: None Smoking Status: Never Smoked ETOH Use: occasional use Illicit Drug Use: denies illicit drug use Functional Ability ADLs Independent: dressing, eating, toileting, bathing. Ambulation: independent IADLs Independent: shopping, housework, finances, food prep, telephone, transportation , medication admin. ECHO Results (as available) EF% 55 Exam & Diagnostic Data Last 24 Hrs of Vital Signs/I&O Vital Signs Date Time Temp Pulse Resp B/P B/P Pulse O2 O2 Flow FiO2 Mean Ox Delivery Rate 11/03 0820 90 Nasal 3.0L Cannula 11/03 0805 104 124/52 11/03 0600 98.4 89 22 124/52 92 Nasal 3.0L Cannula 11/03 0553 94 Nasal 3.0L Cannula 11/02 2129 98.9 104 18 132/64 91 Nasal 3.0L Cannula 11/02 2120 91 Nasal 3.0L Cannula 11/02 2019 105 132/64 11/02 1933 95 Nasal 3.0L Cannula 11/02 1350 98.3 90 20 120/60 90 Nasal Cannula Intake & Output 11/03 1600 11/03 0800 11/03 0000 Intake Total Output Total 725 Balance -725 Output, Urine 725 Oxygen saturation 3 L 90% HEENT exam shows no adenopathy exam of his chest shows scattered expiratory wheezing cardiac exam shows regular S1 and S2 systolic ejection murmur abdomen is soft nontender extremities have 1+ symmetrical edema Last 48 Hrs of Labs/Mamadou: Laboratory Tests 11/03/17 0625: Anion Gap 8, Estimated GFR > 60, BUN/Creatinine Ratio 34.4 H, PT 17.8 H, INR 1.70 H 11/02/17 1530: PT 20.9 H, INR 2.00 H 11/02/17 0445: Anion Gap 10, Estimated GFR > 60, BUN/Creatinine Ratio 32.5 H, Troponin I 0.05, CBC w Diff NO MAN DIFF REQ, RBC 4.23 L, MCV 96.8 H, MCH 32.9 H, MCHC 34.0, RDW 14.5, MPV 9.0, Gran % 95.3 H, Lymphocytes % 3.4 L, Monocytes % 1.3 L, Eosinophils % 0, Basophils % 0, Absolute Granulocytes 6.6 H, Absolute Lymphocytes 0.2 L, Absolute Monocytes 0.1, Absolute Eosinophils 0, Absolute Basophils 0 11/01/17 2030: Troponin I 0.04 11/01/17 1740: Lactic Acid 1.4, PT 35.9 H, INR 3.46 H 11/01/17 1440: Anion Gap 13, Estimated GFR > 60, BUN/Creatinine Ratio 31.1 H, Glucose 142 H, Lactic Acid 3.5 H, Calcium 9.7, Total Bilirubin 0.8, AST 45, ALT 34, Alkaline Phosphatase 58, Troponin I 0.04, Izp-R-Mfkxlpnzofo Pept 2600 H, Total Protein 7.1, Albumin 4.6, Globulin 2.5, Albumin/Globulin Ratio 1.8, CBC w Diff MAN DIFF ORDERED, RBC 4.49 L, MCV 96.8 H, MCH 32.7 H, MCHC 33.8, RDW 15.1 H, MPV 8.9, Gran % 90.9 H, Lymphocytes % 3.2 L, Monocytes % 5.9, Eosinophils % 0, Basophils % 0, Absolute Granulocytes 7.5 H, Absolute Lymphocytes 0.3 L, Absolute Monocytes 0.5, Absolute Eosinophils 0, Absolute Basophils 0, Platelet Estimate VERIFIED BY SMEAR, Anisocytosis 1+ Assessment/Plan Impression/Plan: 77-year-old gentleman with asthma aortic valve disease admitted with cough wheezing shortness of breath and acute hypoxic respiratory failure now on 3 L nasal oxygen. His BNP is markedly elevated though chest x-ray does not show overt congestive heart failure. He appears to have acute asthmatic bronchitis. Recommendations: Continue IV steroids IV antibiotics Taper FiO2 his saturations allow acute mild negative fluid balance. Sputum C&S. Consult Acknowledgment - Thank you for your consult request.
[2017-11-03 14:00] VITALS: BP 130/80
[2017-11-03 19:19] VITALS: BP 140/60
[2017-11-03 22:49] VITALS: BP 122/60
[2017-11-04 07:32] VITALS: BP 126/64
[2017-11-04 08:28] LABS: PT 22.3 SEC (9.4-12.5)
--- NOTE | 2017-11-04 08:49 | PN- Pulmonary ---
Subjective HPI/Critical Care Issues: Patient still has significant shortness of breath and cough. Remains oxygen dependent. Objective Current Medications: Current Medications Sig/Poppy Start time Last Medication Dose Route Stop Time Status Admin Acetaminophen 650 MG Q6P PRN 11/01 1645 AC PO Albuterol Sulfate 2 PUF Q4-PRN PRN 11/01 2230 AC 11/03 INH 1205 Albuterol Sulfate 3 ML TID 11/01 2200 AC 11/04 INH 0613 Amlodipine Besylate 10 MG DAILY 11/02 1000 AC 11/04 PO 0813 Atorvastatin Calcium 20 MG 1700 11/02 1700 AC 11/03 PO 1539 Azithromycin 500 MG DAILY@1800 11/01 1800 AC 11/03 Dextrose/Water 250 ML IV 1732 Budesonide/ 2 PUF BID 11/01 2216 AC 11/03 Formoterol Fumarate INH 1909 Enoxaparin Sodium 40 MG ONCE ONE 11/03 1400 DC SC 11/03 1401 Furosemide 40 MG DAILY 11/03 1345 AC 11/04 PO 0811 Furosemide 40 MG 7:30 AM, & 4:30 PM 11/02 0730 CA 11/03 IV 0652 Guaifenesin 600 MG Q12 PRN 11/01 1900 AC 11/04 PO 0811 Hydrocodone Bitart/ 2 TAB BID PRN 11/03 1302 AC 11/03 Acetaminophen PO 1908 Hydrocodone Bitart/ 1 TAB BID PRN 11/02 1200 DC 11/03 Acetaminophen PO 0805 Ipratropium [place] 2.5 ML TID 11/01 2200 AC 11/04 INH 0613 Melatonin 5 MG AT BEDTIME 11/01 2345 AC 11/03 PO 1909 Methylprednisolone 40 MG Q12 11/02 2200 AC 11/04 IV 0813 Metoprolol Tartrate 75 MG QAM 11/02 1000 AC 11/04 PO 0812 Metoprolol Tartrate 50 MG QPM 11/01 2200 AC 11/03 PO 1909 Montelukast Sodium 10 MG AT BEDTIME 11/03 2200 AC 11/03 PO 1908 Omeprazole 40 MG DAILY AC 11/02 0700 AC 11/04 PO 0600 Warfarin Sodium 6 MG COUMADIN 1700 ONE 11/03 1700 DC 11/03 PO 11/03 1701 1541 Warfarin Sodium 5 MG .STK-MED ONE 11/03 1539 DC PO 11/03 1540 Warfarin Sodium 1 MG .STK-MED ONE 11/03 1539 DC PO 11/03 1540 Vital Signs & I&O Last 24 Hrs of Vitals and I&O: Vital Signs Date Time Temp Pulse Resp B/P B/P Pulse O2 O2 Flow FiO2 Mean Ox Delivery Rate 11/04 0732 98.4 80 24 126/64 95 11/04 0632 Nasal 3.0L Cannula 11/04 0000 95 Nasal 3.0L Cannula 11/03 2249 98.1 93 24 122/60 95 Nasal Cannula 11/03 2031 94 Nasal 3.0L Cannula 11/03 1919 96.8 95 24 140/60 93 Nasal 3.0L Cannula 11/03 1909 95 140/60 11/03 1830 92 Nasal 3.0L Cannula 11/03 1600 Nasal 3.0L Cannula 11/03 1400 98.8 90 20 130/80 94 Nasal 3.0L Cannula Intake & Output 11/04 1600 11/04 0800 11/04 0000 Intake Total 360 550 Output Total 500 250 Balance -140 300 Intake, IV 250 Intake, Oral 360 300 Output, Urine 500 250 Patient 251 lb Weight Weight Bed scale Measurement Method Since saturation 3 L 95% exam of his chest shows persistent expiratory wheezing cardiac exam shows regular S1 and S2 without murmurs extremities continue to show edema Impression/Plan Impression/Plan Impression/Plan: 77-year-old admitted with acute hypoxic respiratory failure asthmatic bronchitis and component of congestive heart failure based on elevated BNP. Recommendations: Increase Solu-Medrol to every 8 hours Taper FiO2 his saturations allow mild negative fluid balance. Sputum C&S. Maintain therapeutic INR provide a flutter valve to assist with airway clearance
--- NOTE | 2017-11-04 10:17 | PN- Cardiology ---
Subjective Subjective: The patient is now on general medicine floor. He is feeling a little less short of breath. He has no chest pain. Objective Vital Signs and I&Os Vital Signs Date Time Temp Pulse Resp B/P B/P Pulse O2 O2 Flow FiO2 Mean Ox Delivery Rate 11/04 1012 94 Nasal 3.0L Cannula 11/04 0800 Nasal 3.0L Cannula 11/04 0732 98.4 80 24 126/64 95 11/04 0632 Nasal 3.0L Cannula 11/04 0000 95 Nasal 3.0L Cannula 11/03 2249 98.1 93 24 122/60 95 Nasal Cannula 11/03 2031 94 Nasal 3.0L Cannula 11/03 1919 96.8 95 24 140/60 93 Nasal 3.0L Cannula 11/03 1909 95 140/60 11/03 1830 92 Nasal 3.0L Cannula 11/03 1600 Nasal 3.0L Cannula 11/03 1400 98.8 90 20 130/80 94 Nasal 3.0L Cannula Intake & Output 11/04 1600 11/04 0800 11/04 0000 11/03 1600 11/03 0800 11/03 0000 Intake Total 360 550 500 Output Total 500 250 675 725 Balance -140 300 -175 -725 Intake, IV 250 Intake, Oral 360 300 500 Output, Urine 500 250 675 725 Patient 251 lb Weight Weight Bed scale Measurement Method Physical Exam: He seems slightly more comfortable today bu is continuing to wheeze. HEENT exam is normal Chest reveals moderate wheezing and rhonchi, perhaps a little bit looser than yesterday. Heart reveals good prosthetic heart sounds and soft systolic ejection murmur Extremities trace edema right, chronic skin changes left. Current Medications: Current Medications Sig/Poppy Start time Last Medication Dose Route Stop Time Status Admin Acetaminophen 650 MG Q6P PRN 11/01 1645 AC PO Albuterol Sulfate 2 PUF Q4-PRN PRN 11/01 2230 AC 11/03 INH 1205 Albuterol Sulfate 3 ML TID 11/01 220 AC 11/04 INH 1005 Amlodipine Besylate 10 MG DAILY 11/02 1000 AC 11/04 PO 0813 Atorvastatin Calcium 20 MG 1700 11/02 1700 AC 11/03 PO 1539 Azithromycin 500 MG DAILY@1800 11/01 1800 AC 11/03 Dextrose/Water 250 ML IV 1732 Budesonide/ 2 PUF BID 11/01 2216 AC 11/03 Formoterol Fumarate INH 1909 Enoxaparin Sodium 40 MG ONCE ONE 11/03 1400 DC SC 11/03 1401 Furosemide 40 MG DAILY 11/03 1345 AC 11/04 PO 0811 Furosemide 40 MG 7:30 AM, & 4:30 PM 11/02 0730 DC 11/03 IV 0652 Guaifenesin 600 MG Q12 PRN 11/01 1900 AC 11/04 PO 0811 Hydrocodone Bitart/ 2 TAB BID PRN 11/03 1302 AC 11/03 Acetaminophen PO 1908 Hydrocodone Bitart/ 1 TAB BID PRN 11/02 1200 DC 11/03 Acetaminophen PO 0805 Ipratropium [place] 2.5 ML TID 11/01 2200 AC 11/04 INH 1005 Melatonin 5 MG AT BEDTIME 11/01 2345 AC 11/03 PO 1909 Methylprednisolone 40 MG Q8 11/04 1400 AC IV Methylprednisolone 40 MG Q12 11/02 2200 DC 11/04 IV 0813 Metoprolol Tartrate 75 MG QAM 11/02 1000 AC 11/04 PO 0812 Metoprolol Tartrate 50 MG QPM 11/01 2200 AC 11/03 PO 1909 Montelukast Sodium 10 MG AT BEDTIME 11/03 2200 AC 11/03 PO 1908 Omeprazole 40 MG DAILY AC 11/02 0700 AC 11/04 PO 0600 Warfarin Sodium 6 MG COUMADIN 1700 ONE 11/03 1700 DC 11/03 PO 11/03 1701 1541 Warfarin Sodium 5 MG .STK-MED ONE 11/03 1539 DC PO 11/03 1540 Warfarin Sodium 1 MG .STK-MED ONE 11/03 1539 DC PO 11/03 1540 Results Last 48 Hrs of Labs/Mics: Laboratory Tests 11/04/17 0703: PT 22.3 H, INR 2.14 H 11/03/17 0625: Anion Gap 8, Estimated GFR > 60, BUN/Creatinine Ratio 34.4 H, PT 17.8 H, INR 1.70 H 11/02/17 1530: PT 20.9 H, INR 2.00 H Assessment/Plan Assessment/Plan The patient seems a little better today but still has significant wheezing and rhonchi. He is saturating 94-95% on 3 L. His INR is a little low today at 2.3. His goal is 2.5-3.5 because of mechanical prosthetic valve. He is on Lasix 40 mg by mouth daily. I recommend a follow-up BEP to look at BUN which was a little elevated yesterday. Otherwise I would continue on the same regimen and follow pulmonary recommendations. He might require a little extra Coumadin today to bump up his INR to his therapeutic range(2.5-3.5). Continue telemetry? Not applicable
--- NOTE | 2017-11-04 10:56 | PN- Housestaff ---
Denisse Ching 11/04/17 1056: Subjective Follow-up For: Asthma exacerbation Subjective: Transferred from Tele yesterday. Patient still felt difficulty bring up the phlegm, and not much improved on wheezing. Otherwise no complaint. Review of Systems Constitutional: Reports: see HPI. Objective Last 24 Hrs of Vital Signs/I&O Vital Signs Date Time Temp Pulse Resp B/P B/P Pulse O2 O2 Flow FiO2 Mean Ox Delivery Rate 11/04 1012 94 Nasal 3.0L Cannula 11/04 0800 Nasal 3.0L Cannula 11/04 0732 98.4 80 24 126/64 95 11/04 0632 Nasal 3.0L Cannula 11/04 0000 95 Nasal 3.0L Cannula 11/03 2249 98.1 93 24 122/60 95 Nasal Cannula 11/03 2031 94 Nasal 3.0L Cannula 11/03 1919 96.8 95 24 140/60 93 Nasal 3.0L Cannula 11/03 1909 95 140/60 11/03 1830 92 Nasal 3.0L Cannula 11/03 1600 Nasal 3.0L Cannula 11/03 1400 98.8 90 20 130/80 94 Nasal 3.0L Cannula Intake & Output 11/04 1600 11/04 0800 11/04 0000 Intake Total 360 550 Output Total 500 250 Balance -140 300 Intake, IV 250 Intake, Oral 360 300 Output, Urine 500 250 Patient 113.88 kg Weight Weight Bed scale Measurement Method Physical Exam General Appearance: Alert, Oriented X3, Cooperative, No Acute Distress Cardiovascular: Regular Rate Lungs: Normal Air Movement, bilateral expiratory wheezing Abdomen: Soft, No Tenderness Neurological: Normal Speech, Strength at 5/5 X4 Ext Extremities: Normal Pulses, +1 edema BLE LLF chronic skin change from hx of cellulitis Current Medications: Current Medications Sig/Poppy Start time Last Medication Dose Route Stop Time Status Admin Acetaminophen 650 MG Q6P PRN 11/01 1645 AC PO Albuterol Sulfate 2 PUF Q4-PRN PRN 11/01 2230 AC 11/03 INH 1205 Albuterol Sulfate 3 ML TID 11/01 220 AC 11/04 INH 1005 Amlodipine Besylate 10 MG DAILY 11/02 1000 AC 11/04 PO 0813 Atorvastatin Calcium 20 MG 1700 11/02 1700 AC 11/03 PO 1539 Azithromycin 500 MG DAILY@1800 11/01 1800 AC 11/03 Dextrose/Water 250 ML IV 1732 Budesonide/ 2 PUF BID 11/01 2216 AC 11/03 Formoterol Fumarate INH 1909 Enoxaparin Sodium 40 MG ONCE ONE 11/03 1400 DC SC 11/03 1401 Furosemide 40 MG DAILY 11/03 1345 AC 11/04 PO 0811 Furosemide 40 MG 7:30 AM, & 4:30 PM 11/02 0730 DC 11/03 IV 0652 Guaifenesin 600 MG Q12 PRN 11/01 1900 AC 11/04 PO 0811 Hydrocodone Bitart/ 2 TAB BID PRN 11/03 1302 AC 11/03 Acetaminophen PO 1908 Hydrocodone Bitart/ 1 TAB BID PRN 11/02 1200 DC 11/03 Acetaminophen PO 0805 Ipratropium [place] 2.5 ML TID 11/01 2200 AC 11/04 INH 1005 Melatonin 5 MG AT BEDTIME 11/01 2345 AC 11/03 PO 1909 Methylprednisolone 40 MG Q8 11/04 1400 AC IV Methylprednisolone 40 MG Q12 11/02 2200 DC 11/04 IV 0813 Metoprolol Tartrate 75 MG QAM 11/02 1000 AC 11/04 PO 0812 Metoprolol Tartrate 50 MG QPM 11/01 2200 AC 11/03 PO 1909 Montelukast Sodium 10 MG AT BEDTIME 11/03 2200 AC 11/03 PO 1908 Omeprazole 40 MG DAILY AC 11/02 0700 AC 11/04 PO 0600 Warfarin Sodium 6 MG COUMADIN 1700 ONE 11/03 1700 DC 11/03 PO 11/03 1701 1541 Warfarin Sodium 5 MG .STK-MED ONE 11/03 1539 DC PO 11/03 1540 Warfarin Sodium 1 MG .STK-MED ONE 11/03 1539 DC PO 11/03 1540 Last 24 Hrs of Lab/Mamadou Results Last 24 Hrs of Labs/Mics: Laboratory Tests 11/04/17 0703: PT 22.3 H, INR 2.14 H Assessment/Plan Assessment: Mr. Avery is a 75-year-old male, nonsmoker, nonalcoholic, with past medical history of coronary artery disease, CHF, hypertension, hyperlipidemia, [place], heart failure with preserved ejection fraction, aortic medicine, gout, arthritis and asthma came in with chief complaint of worsening shortness of breath since last 4 days, previously being seen at the ER on October 30 and being discharged on by mouth prednisone and Augmentin return back to the emergency department with worsening shortness of breath, especially on exertion. Asthma exacerbation CXR showed no acute pulmonary findings with cardiomegaly. ECHO showed EF > 60% with mechanical prosthesis aortic valve. * Continue TRC nebulization, continue oxygen to maintain saturation greater than 92%. * Continue IV Solu-Medrol increased to 40mg q8 per pulm recommendation * Continue IV Zithromax 250mg, currently day 4, for total of 5 days * Cardiology and Pulmonolgy has r/o CHF exacerbation History of aortic aneurysm/aortic valve replacement on Coumadin INR was 2.14 on latest lab. Patient refused Lovenox and he was explained the risks vs benefits. * Dose 4.5 mg coumadin at patient's home dose. * Dose Coumadin per INR daily History of hyperlipidemia, coronary artery disease, hypertension * Continue atorvastatin, metoprolol 25 mg in the morning and 50 mg in the evening, continue amlodipine. DVT PPX Warfarin + ALPS Heart Healthy Diet Full code Problem List: 1. Asthma exacerbation Pain Ratin Pain Location: NA Pain Goal: Remain pain free Pain Plan: see AP Tomorrow's Labs & Rationales: CBC/INR Candido Rouse 11/04/17 1129: Attending MD Review Statement Attending Statement Attending MD Statement: examined this patient, discuss w/resident/PA/TAPEMAN, agreed w/resident/PA/TAPEMAN, discussed with family, reviewed EMR data (avail), discussed with nursing, discussed with case mgmt, reviewed images, amended to note Attending Assessment/Plan: Patient admitted initially to telemetry monitoring for dypnea at rest possible asthma exacerbation and possible component of chf CHF with preserved EF. Negative serial cardiac enzymes, cardiology and pulmonary consultexd now transferred to [facility]. Patient on PO lasix maintenance dose at home, Increased iv steroids 40 q 8, azithromycin, Bds, ECHO with preserved EF, oxygen supplementation. gi/dvt prophylaxis full code.
[2017-11-04 14:00] VITALS: BP 140/74
--- NOTE | 2017-11-04 16:09 | Discharge Summary ---
Visit Information Visit Dates Admission Date: 11/01/17 Hospital Course Course Attending Physician: Juliocesar Herrera MD Primary Care Physician: Yo FERNANDEZ,Vandana Allergies: Coded Allergies: No Known Allergies (11/01/17) Disposition Summary Disposition Principal Diagnosis: 1. Asthma Exacerbatio 2. Hx of CHF w/ preserved EF 3. Hx of PVD, Aortic aneurysm, Aortic valve replacement on coumadin, HLD, CAD, HTN Additional Diagnosis: As above Discharge Disposition: home or self care Discharge Instructions General Discharge Information Code Status: Full Code Patient's Diet: Regular Patient's Activity: As tolerated Medications at Discharge Discharge Medications: Stop taking the following medications: Prednisone (Prednisone) 10 MG TABLET ORAL DAILY Qty = 16 Continue taking these medications: Albuterol Sulfate (Proair Hfa) 90 MCG HFA.AER.AD 2 Puff Inhale through mouth EVERY 4-6 HOURS NEEDED as needed for ASTHMA Comments: Last Taken: 07/18/17 Time: 115 AM Amlodipine Besylate (Amlodipine Besylate) 10 MG TABLET 1 Tablet ORAL DAILY Comments: Last Taken: 07/21/17 Time: 1013 Rosuvastatin Calcium (Crestor) 5 MG TABLET 1 Tablet ORAL DAILY Comments: Last Taken: 07/20/17 Time: 1033 RECEIVED LIPITOR REPLACEMENT Warfarin Sodium (Coumadin) (Unknown Strength) TABLET 4.5 Milligram ORAL DAILY Comments: Last Taken:07/06/17 Time:1621 RECEIVED 1MG. Budesonide/Formoterol Fumarate (Symbicort 160-4.5 Mcg Inhaler) 160 MCG-4.5 MCG/ ACTUATION HFA.AER.AD 2 Puff Inhale through mouth TWICE DAILY Comments: Last Taken: 07/21/17 Time: 630 AM Metoprolol Tartrate (Metoprolol Tartrate) 50 MG TABLET 1 Tablet ORAL TWICE DAILY Qty = 180 Comments: Last Taken: 07/21/17 Time: 1013 Albuterol Sulfate (Albuterol Sulfate) 2.5 MG/3 ML (0.083 %) VIAL.NEB 1 Vial Inhale Solution EVERY 4 HOURS NEEDED as needed for SHORTNESS OF BREATH Comments: Last Taken: 07/21/17 Time: 1100 Tramadol HCl (Tramadol HCl) 50 MG TABLET 1 Tablet ORAL EVERY SIX HOURS NEEDED as needed for PAIN Qty = 30 Comments: NOT GIVEN IN HOSPITAL Furosemide (Furosemide) 40 MG TABLET 1 Tablet ORAL DAILY Qty = 30 Instructions: . Comments: Last Taken: 07/21/17 Time: 600 AM IV LASIX WAS GIVEN Ipratropium/Albuterol Sulfate (Iprat-Albut 0.5-3(2.5) MG/3 Ml) 0.5 MG-3 MG (2.5 MG BASE)/3 ML AMPUL.NEB 1 VIAL Inhale through mouth Q6HR as needed for WHEEZING Qty = 1 Hydrocodone/Acetaminophen (Vicodin 5-300 MG Tablet) 5 MG-300 MG TABLET 1 Tablet ORAL As Directed as needed for PAIN Qty = 150 Multiple Vitamin (Multivitamins) 1 EACH TABLET 1 Tablet ORAL DAILY Lactobacillus Acidophilus (Probiotic) (Unknown Strength) CAPSULE Unknown Dose ORAL DAILY Omeprazole Magnesium (Prilosec Otc) 20 MG TABLET. 1 Tablet ORAL DAILY Copies To: Yo FERNANDEZ,Vandana
[2017-11-04 22:35] VITALS: BP 120/80
[2017-11-05 06:45] VITALS: BP 150/74
[2017-11-05 08:08] LABS: ABSOLUTE BASOPHIL COUNT 0 /CUMM (0.0-0.2); ABSOLUTE EOSINOPHIL COUNT 0 /CUMM (0.0-0.7); ABSOLUTE GRANULOCYTE CT 6.7 /CUMM (1.4-6.5); ABSOLUTE LYMPH COUNT 0.4 /CUMM (1.2-3.4); ABSOLUTE MONOCYTE COUNT 0.2 /CUMM (0.10-0.60); BASOPHIL % 0.1 % (0.0-2.0); EOSINOPHIL % 0 % (0-5); HEMATOCRIT 45.7 % (42-52); MEAN CORPUSCULAR HGB 32.7 PG (27.0-31.0); MEAN CORPUSCULAR HGB CONC 33.7 G/DL (33.0-37.0); MEAN CORPUSCULAR VOLUME 97.2 FL (80.0-94.0); MEAN PLATELET VOLUME 8.4 FL (7.4-10.4); PLATELET COUNT 167 /CUMM (130-400); RBC DISTRIBUTION WIDTH 14.3 % (11.5-14.5); WHITE BLOOD CELL COUNT 7.4 /CUMM (4.8-10.8)
--- NOTE | 2017-11-05 08:09 | PN- Housestaff ---
See Addendum Denisse Ching 11/05/17 0800: Subjective Follow-up For: Asthma exacerbation Subjective: No overnight event. Patient felt not much improvement on breathing/wheezing however felt his chest was not as congested as before, however no sputum output yet. Offered no other complaint. Review of Systems Constitutional: Reports: see HPI. Objective Last 24 Hrs of Vital Signs/I&O Vital Signs Date Time Temp Pulse Resp B/P B/P Pulse O2 O2 Flow FiO2 Mean Ox Delivery Rate 11/05 0645 97.8 80 20 150/74 92 Nasal 4.0L Cannula 11/05 0020 96 Nasal 3.0L Cannula 11/05 0000 Nasal 3.0L Cannula 11/04 2235 98.1 107 20 120/80 93 Nasal Cannula 11/04 2105 107 130/78 11/04 1930 95 Nasal 3.0L Cannula 11/04 1600 96 Nasal 3.0L Cannula 11/04 1400 97.8 71 20 140/74 96 11/04 1012 94 Nasal 3.0L Cannula Intake & Output 11/05 1600 11/05 0800 11/05 0000 Intake Total 500 750 Output Total 660 550 Balance -160 200 Intake, IV 250 Intake, Oral 500 500 Output, Urine 660 550 Patient 114.475 kg Weight Weight Bed scale Measurement Method Physical Exam General Appearance: Alert, Oriented X3, Cooperative, No Acute Distress Cardiovascular: Regular Rate Lungs: Normal Air Movement, Bilateral wheezing Abdomen: Normal Bowel Sounds, Soft, No Tenderness Neurological: Normal Speech Extremities: Normal Pulses, No Tenderness/Swelling, +1 edema on ALPS Current Medications: Current Medications Sig/Poppy Start time Last Medication Dose Route Stop Time Status Admin Acetaminophen 650 MG Q6P PRN 11/01 1645 AC PO Albuterol Sulfate 2 PUF Q4-PRN PRN 11/01 2230 AC 11/04 INH 2107 Albuterol Sulfate 3 ML TID 11/01 2200 AC 11/05 INH 0004 Amlodipine Besylate 10 MG DAILY 11/02 1000 AC 11/04 PO 0813 Atorvastatin Calcium 20 MG 1700 11/02 1700 AC 11/04 PO 1745 Azithromycin 500 MG DAILY@1800 11/01 1800 AC 11/04 Dextrose/Water 250 ML IV 1746 Budesonide/ 2 PUF BID 11/01 2216 AC 11/04 Formoterol Fumarate INH 210 Furosemide 40 MG DAILY 11/03 1345 AC 11/04 PO 0811 Guaifenesin 600 MG Q12 11/04 1533 AC 11/04 PO 2105 Guaifenesin 600 MG Q12 PRN 11/01 1900 DC 11/04 PO 0811 Hydrocodone Bitart/ 2 TAB BID PRN 11/03 1302 AC 11/04 Acetaminophen PO 1755 Ipratropium [place] 2.5 ML TID 11/01 2200 AC 11/05 INH 0004 Melatonin 5 MG AT BEDTIME 11/01 2345 AC 11/04 PO 2105 Methylprednisolone 40 MG Q8 11/04 1400 AC 11/05 IV 0629 Methylprednisolone 40 MG Q12 11/02 2200 DC 11/04 IV 0813 Metoprolol Tartrate 75 MG QAM 11/02 1000 AC 11/04 PO 0812 Metoprolol Tartrate 50 MG QPM 11/01 2200 AC 11/04 PO 2105 Montelukast Sodium 10 MG AT BEDTIME 11/03 2200 AC 11/04 PO 2105 Omeprazole 40 MG DAILY AC 11/02 0700 AC 11/05 PO 0629 Warfarin Sodium 4.5 MG COUMADIN 1700 ONE 11/04 1700 DC PO 11/04 1701 Warfarin Sodium 7.5 MG COUMADIN 1700 ONE 11/04 1700 DC 11/04 PO 11/04 1701 1745 Last 24 Hrs of Lab/Mamadou Results Last 24 Hrs of Labs/Mics: Laboratory Tests 11/05/17 0739: PT Pending, INR Pending, CBC w Diff Pending, WBC Pending, RBC Pending, Hgb Pending, Hct Pending, MCV Pending, MCH Pending, MCHC Pending, RDW Pending, Plt Count Pending, MPV Pending Microbiology 11/05 715 LOWER RESP: Respiratory Culture - ORD 11/05 715 LOWER RESP: Gram Stain - ORD Assessment/Plan Assessment: Mr. Avery is a 75-year-old male, nonsmoker, nonalcoholic, with past medical history of coronary artery disease, CHF, hypertension, hyperlipidemia, [place], heart failure with preserved ejection fraction, aortic medicine, gout, arthritis and asthma came in with chief complaint of worsening shortness of breath since last 4 days, previously being seen at the ER on October 30 and being discharged on by mouth prednisone and Augmentin return back to the emergency department with worsening shortness of breath, especially on exertion. Asthma exacerbation CXR showed no acute pulmonary findings with cardiomegaly. ECHO showed EF > 60% with mechanical prosthesis aortic valve. * Continue TRC nebulization, continue oxygen to maintain saturation greater than 92%. * Continue IV Solu-Medrol increased to 40mg q8 per pulm recommendation * Continue IV Zithromax 250mg, currently day 4, for total of 5 days * Cardiology and Pulmonolgy has r/o CHF exacerbation History of aortic aneurysm/aortic valve replacement on Coumadin INR was 2.6 on latest lab. * Will dose at 4.5mg coumadin today to maintain INR 2.5-3.5. * Dose Coumadin per INR daily History of hyperlipidemia, coronary artery disease, hypertension * Continue atorvastatin, metoprolol 25 mg in the morning and 50 mg in the evening, continue amlodipine. DVT PPX Warfarin + ALPS Heart Healthy Diet Full code Problem List: 1. Asthma exacerbation 2. Hx of mechanical aortic valve replacement Pain Ratin Pain Location: NA Pain Goal: Remain pain free Pain Plan: see AP Tomorrow's Labs & Rationales: CBC/BEP Candido Rouse 11/05/17 1105: Attending MD Review Statement Attending Statement Attending MD Statement: examined this patient, discuss w/resident/PA/RADIATOR SPECIALIST, agreed w/resident/PA/RADIATOR SPECIALIST, discussed with family, reviewed EMR data (avail), discussed with nursing, discussed with case mgmt, reviewed images, amended to note Attending Assessment/Plan: Patient admitted initially to telemetry monitoring for dypnea at rest possible asthma exacerbation and possible component of CHF with preserved EF. Negative serial cardiac enzymes, cardiology and pulmonary consultexd now transferred to [facility]. Patient seen/examined bedside. Patient still c/o shortness of breath, b/l wheezing. Oxygn 3l, pedal edema 1+. Patient on PO lasix maintenance dose at home, Continue iv steroids 40 q 8, azithromycin, Bds, ECHO with preserved EF, oxygen supplementation. ENT eval for vocal cord dysfunction. gi/dvt prophylaxis full code.
--- NOTE | 2017-11-05 08:09 | PN- Pulmonary ---
Subjective HPI/Critical Care Issues: Patient is remain oxygen dependent and feel short of breath Objective Current Medications: Current Medications Sig/Poppy Start time Last Medication Dose Route Stop Time Status Admin Acetaminophen 650 MG Q6P PRN 11/01 1645 AC PO Albuterol Sulfate 2 PUF Q4-PRN PRN 11/01 2230 AC 11/04 INH 2107 Albuterol Sulfate 3 ML TID 11/01 2200 AC 11/05 INH 0004 Amlodipine Besylate 10 MG DAILY 11/02 1000 AC 11/04 PO 0813 Atorvastatin Calcium 20 MG 1700 11/02 1700 AC 11/04 PO 1745 Azithromycin 500 MG DAILY@1800 11/01 1800 AC 11/04 Dextrose/Water 250 ML IV 1746 Budesonide/ 2 PUF BID 11/01 2216 AC 11/04 Formoterol Fumarate INH 2105 Furosemide 40 MG DAILY 11/03 1345 AC 11/04 PO 0811 Guaifenesin 600 MG Q12 11/04 1533 AC 11/04 PO 2105 Guaifenesin 600 MG Q12 PRN 11/01 1900 DC 11/04 PO 0811 Hydrocodone Bitart/ 2 TAB BID PRN 11/03 1302 AC 11/04 Acetaminophen PO 1755 Ipratropium [place] 2.5 ML TID 11/01 2200 AC 11/05 INH 0004 Melatonin 5 MG AT BEDTIME 11/01 2345 AC 11/04 PO 2105 Methylprednisolone 40 MG Q8 11/04 1400 AC 11/05 IV 0629 Methylprednisolone 40 MG Q12 11/02 2200 DC 11/04 IV 0813 Metoprolol Tartrate 75 MG QAM 11/02 1000 AC 11/04 PO 0812 Metoprolol Tartrate 50 MG QPM 11/01 2200 AC 11/04 PO 2105 Montelukast Sodium 10 MG AT BEDTIME 11/03 2200 AC 11/04 PO 2105 Omeprazole 40 MG DAILY AC 11/02 0700 AC 11/05 PO 0629 Warfarin Sodium 4.5 MG COUMADIN 1700 ONE 11/04 1700 DC PO 11/04 1701 Warfarin Sodium 7.5 MG COUMADIN 1700 ONE 11/04 1700 DC 11/04 PO 11/04 1701 1745 Vital Signs & I&O Last 24 Hrs of Vitals and I&O: Vital Signs Date Time Temp Pulse Resp B/P B/P Pulse O2 O2 Flow FiO2 Mean Ox Delivery Rate 11/05 0645 97.8 80 20 150/74 92 Nasal 4.0L Cannula 11/05 0020 96 Nasal 3.0L Cannula 11/05 0000 Nasal 3.0L Cannula 11/04 2235 98.1 107 20 120/80 93 Nasal Cannula 11/04 2105 107 130/78 11/04 1930 95 Nasal 3.0L Cannula 11/04 1600 96 Nasal 3.0L Cannula 11/04 1400 97.8 71 20 140/74 96 11/04 1012 94 Nasal 3.0L Cannula Intake & Output 11/05 1600 11/05 0800 11/05 0000 Intake Total 500 750 Output Total 660 550 Balance -160 200 Intake, IV 250 Intake, Oral 500 500 Output, Urine 660 550 Patient 252 lb Weight Weight Bed scale Measurement Method Patient feels hoarse. Oxygen saturation 4 L 92%. Question of stridor heard on upper airway exam. There are scattered wheezes cardiac exam shows regular S1 and S2 Impression/Plan Impression/Plan Impression/Plan: 77-year-old gentleman history of heart disease asthma has persistent bronchospasm and acute hypoxic respiratory failure. Recommendations: Repeat labs. Repeat flu swab. ENT exam for vocal cord dysfunction. Continue current respiratory meds.
[2017-11-05 08:13] LABS: PT 27.4 SEC (9.4-12.5)
[2017-11-05 09:32] LABS: GRANULOCYTE % 91.3 % (42.2-75.2)
--- NOTE | 2017-11-05 10:44 | PN- Cardiology ---
Subjective Subjective: The patient is still short of breath, wheezing and requiring oxygen. He has no chest pain. INR is in the therapeutic range today. His BUN is up slightly which may be due to diuresis and/or steroids. A chest x-ray is pending. Objective Vital Signs and I&Os Vital Signs Date Time Temp Pulse Resp B/P B/P Pulse O2 O2 Flow FiO2 Mean Ox Delivery Rate 11/05 0840 95 Nasal 3.0L Cannula 11/05 0812 150/78 11/05 0800 Nasal 3.0L Cannula 11/05 0645 97.8 80 20 150/74 92 Nasal 4.0L Cannula 11/05 0020 96 Nasal 3.0L Cannula 11/05 0000 Nasal 3.0L Cannula 11/04 2235 98.1 107 20 120/80 93 Nasal Cannula 11/04 2105 107 130/78 11/04 1930 95 Nasal 3.0L Cannula 11/04 1600 96 Nasal 3.0L Cannula 11/04 1400 97.8 71 20 140/74 96 Intake & Output 11/05 1600 11/05 0800 11/05 0000 11/04 1600 11/04 0800 11/04 0000 Intake Total 500 750 950 360 550 Output Total 660 550 275 500 250 Balance -160 200 675 -140 300 Intake, IV 250 250 Intake, Oral 500 500 950 360 300 Output, Urine 660 550 275 500 250 Patient 252 lb 251 lb Weight Weight Bed scale Bed scale Measurement Method Physical Exam: Awake and alert HEENT exam normal Chest diffuse rhonchi and moderate wheezing Heart regular rhythm, loud prosthetic sounds, soft systolic murmur Extremities only trace edema Current Medications: Current Medications Sig/Poppy Start time Last Medication Dose Route Stop Time Status Admin Acetaminophen 650 MG .STK-MED ONE 11/06 2058 DC PO 11/06 2100 Acetaminophen 650 MG Q6P PRN 11/01 1645 AC PO Albuterol Sulfate 2 PUF Q4-PRN PRN 11/01 2230 AC 11/07 INH 0919 Albuterol Sulfate 3 ML TID 11/01 2200 AC 11/07 INH 1649 Amlodipine Besylate 10 MG DAILY 11/02 1000 AC 11/07 PO 0918 Atorvastatin Calcium 20 MG 1700 11/02 1700 AC 11/07 PO 1748 Furosemide 40 MG DAILY 11/07 1000 AC 11/07 PO 0917 Guaifenesin 10 ML Q4P PRN 11/07 1130 AC 11/07 PO 1627 Guaifenesin 600 MG Q12 11/04 1533 DC 11/07 PO 0917 Hydrocodone Bitart/ 2 TAB BID PRN 11/03 1302 AC 11/07 Acetaminophen PO 0922 Ipratropium [place] 2.5 ML TID 11/01 2200 AC 11/07 INH 1648 Melatonin 5 MG AT BEDTIME 11/01 2345 AC 11/06 PO 2040 Methylprednisolone 40 MG Q8 11/04 1400 DC 11/07 IV 0632 Metoprolol Tartrate 25 MG BID 11/05 2200 AC 11/07 PO 0918 Metoprolol Tartrate 75 MG QAM 11/02 1000 AC 11/07 PO 0921 Montelukast Sodium 10 MG AT BEDTIME 11/03 220 AC 11/06 PO 2040 Omeprazole 40 MG DAILY AC 11/02 0700 AC 11/07 PO 0632 Prednisone 40 MG DAILY 11/08 1000 AC PO 11/10 1001 Results Last 48 Hrs of Labs/Mics: Laboratory Tests 11/07/17 0758: Anion Gap 10, Estimated GFR > 60, BUN/Creatinine Ratio 45.0 H, PT 48.3 *H, INR 4.67 *H, CBC w Diff NO MAN DIFF REQ, RBC 4.51 L, MCV 96.8 H, MCH 32.7 H, MCHC 33.8, RDW 14.0, MPV 8.8, Gran % 92.5 H, Lymphocytes % 2.7 L, Monocytes % 4.8, Eosinophils % 0, Basophils % 0, Absolute Granulocytes 11.3 H, Absolute Lymphocytes 0.3 L, Absolute Monocytes 0.6, Absolute Eosinophils 0, Absolute Basophils 0 11/06/17 0745: PT 38.2 H, INR 3.69 H 11/06/17 0730: Anion Gap 9, Estimated GFR > 60, BUN/Creatinine Ratio 43.8 H, CBC w Diff NO MAN DIFF REQ, RBC 4.76, MCV 96.6 H, MCH 32.5 H, MCHC 33.6, RDW 14.5, MPV 9.0, Gran % 93.6 H, Lymphocytes % 3.4 L, Monocytes % 2.7, Eosinophils % 0, Basophils % 0.3, Absolute Granulocytes 7.2 H, Absolute Lymphocytes 0.3 L, Absolute Monocytes 0.2, Absolute Eosinophils 0, Absolute Basophils 0 Assessment/Plan Assessment/Plan Bill is about the same. He is on steroids, diuretics, antibiotics and is not improving very much. I recommend changing his Lopressor to 25 mg twice a day and if that helps maybe discontinuing at least temporarily while he still has a lot of bronchospasm. Otherwise I would continue the same cardiac regimen. Continue telemetry? Not applicable
--- NOTE | 2017-11-05 13:02 | Cons- Ear,Nose&Throat ---
General Information and HPI Consulting Request Date of Consult: 11/05/17 Requested By: Candido Rouse MD Reason for Consult: hoarsness Source of Information: patient, old records Exam Limitations: no limitations History of Present Illness: is a 77-year-old male with history of coronary artery disease, CHF, hypertension, hyperlipidemia, previous RI, hypertension with preserved ejection fraction, gout, arthritis, s/p thoracic aortic aneurysm repair 4 yrs ago, no voice changes following aneurysm repair now admitted to for shortness of breath, wheezing which has been progressively worsening since 4 days prior to admission. Previously on 30 of October he was seen in the ER for asthma exacerbation, treated with prednisone taper, and Augmentin and duonebulizations and returned home. However his shortness of breath continued to worsen, he had significant shortness of breath from just walking across the room towards the door, right prior to today's admission is shortness of breath got worse in spite of being on the steroids, nebulization and Augmentin antibiotic therefore he presented to the ER. Currently patient admits to have raspy voice accompanied by dry throat. There has been no throat pain or difficulty swallowing. There has been no nasal congestion, rhinorrhea or facial pressure, no signs of sinus infection. Allergies/Medications Allergies: Coded Allergies: No Known Allergies (11/01/17) Home Med List: Albuterol Sulfate (Proair Hfa) 90 MCG HFA.AER.AD 2 PUF INH Q4-6 PRN PRN ASTHMA (Reported) Albuterol Sulfate 2.5 MG/3 ML (0.083 %) VIAL.NEB 1 Vial INH/TORI Q4P PRN SHORTNESS OF BREATH (Reported) Amlodipine Besylate 10 MG TABLET 1 TAB PO DAILY BP (Reported) Budesonide/Formoterol Fumarate (Symbicort 160-4.5 Mcg Inhaler) 160 MCG-4.5 MCG/ ACTUATION HFA.AER.AD 2 PUF INH BID COPD (Reported) Furosemide 40 MG TABLET 1 TAB PO DAILY SHORTNESS OF BREATH . Hydrocodone/Acetaminophen (Vicodin 5-300 MG Tablet) 5 MG-300 MG TABLET 1 TAB PO AD PRN PAIN (Reported) Ipratropium/Albuterol Sulfate (Iprat-Albut 0.5-3(2.5) MG/3 Ml) 0.5 MG-3 MG (2.5 MG BASE)/3 ML AMPUL.NEB 1 VIAL INH Q6HR PRN WHEEZING Lactobacillus Acidophilus (Probiotic) (Unknown Strength) CAPSULE (Unknown Dose ) PO DAILY PROBIOTIC (Reported) Metoprolol Tartrate 50 MG TABLET 1 TAB PO BID HEART (Reported) Multiple Vitamin (Multivitamins) 1 EACH TABLET 1 TAB PO DAILY SUPPLEMENT ( Reported) Omeprazole Magnesium (Prilosec Otc) 20 MG TABLET.DR 1 TAB PO DAILY GI ( Reported) Prednisone 10 MG TABLET 0 PO DAILY asthma 5 tabs po day 1 4 tabs po day 2 3 tabs po day 3 2 tabs po day 4 1 tab po day 5 and 6 Rosuvastatin Calcium (Crestor) 5 MG TABLET 1 TAB PO DAILY CHOLESTEROL ( Reported) Tramadol HCl 50 MG TABLET 1 TAB PO Q6P PRN PAIN (Reported) Warfarin Sodium (Coumadin) (Unknown Strength) TABLET 4.5 MG PO DAILY BLOOD THINNER (Reported) Current Medications: Current Medications Sig/Poppy Start time Last Medication Dose Route Stop Time Status Admin Acetaminophen 650 MG Q6P PRN 11/01 1645 AC PO Albuterol Sulfate 2 PUF Q4-PRN PRN 11/01 2230 AC 11/04 INH 2107 Albuterol Sulfate 3 ML TID 11/01 2200 AC 11/05 INH 0838 Amlodipine Besylate 10 MG DAILY 11/02 1000 AC 11/05 PO 0812 Atorvastatin Calcium 20 MG 1700 11/02 1700 AC 11/04 PO 1745 Azithromycin 500 MG DAILY@1800 11/01 1800 AC 11/04 Dextrose/Water 250 ML IV 1746 Budesonide/ 2 PUF BID 11/01 2216 AC 11/05 Formoterol Fumarate INH 0812 Furosemide 40 MG DAILY 11/03 1345 AC 11/05 PO 0812 Guaifenesin 600 MG Q12 11/04 1533 AC 11/05 PO 0812 Guaifenesin 600 MG Q12 PRN 11/01 1900 DC 11/04 PO 0811 Hydrocodone Bitart/ 2 TAB BID PRN 11/03 1302 AC 11/04 Acetaminophen PO 1755 Ipratropium [place] 2.5 ML TID 11/01 2200 AC 11/05 INH 0838 Melatonin 5 MG AT BEDTIME 11/01 2345 AC 11/04 PO 2105 Methylprednisolone 40 MG Q8 11/04 1400 AC 11/05 IV 0629 Metoprolol Tartrate 25 MG BID 11/05 220 AC PO Metoprolol Tartrate 75 MG QAM 11/02 1000 AC 11/05 PO 0812 Metoprolol Tartrate 50 MG QPM 11/01 2200 DC 11/04 PO 2105 Montelukast Sodium 10 MG AT BEDTIME 11/03 2200 AC 11/04 PO 2105 Omeprazole 40 MG DAILY AC 11/02 0700 AC 11/05 PO 0629 Patient Medication 1 ED ONE ONE 11/05 1115 DC Teaching ED 11/05 1116 Warfarin Sodium 4.5 MG COUMADIN 1700 ONE 11/05 1700 AC PO 11/05 1701 Warfarin Sodium 4.5 MG COUMADIN 1700 ONE 11/04 1700 DC PO 11/04 1701 Warfarin Sodium 7.5 MG COUMADIN 1700 ONE 11/04 1700 DC 11/04 PO 11/04 1701 1745 Past History Medical History Blood Transfusion Hx: Yes Neurological: status post nerve damage right arm/hand/fingers EENT: NONE Cardiovascular: CAD, CHF, hypertension, hyperlipidemia, myocardial infarction, AORTIC ANEURSYM Respiratory: asthma Gastrointestinal: GERD Hepatic: NONE Renal: benign prost hyperplasia Musculoskeletal: gout, septic arthritis (left ankle 2000) Psychiatric: NONE Endocrine: NONE Blood Disorders: NONE Cancer(s): NONE MANAGER FREELANCE/Reproductive: NONE Surgical History Pertinent Surgical History: CABG, cholecystectomy, status post aortic valve replacement 2013 status post repair of an aortic aneurysm 2013 status post excision of the second metatarsal head of the right foot Family History Relations & Conditions If Any: FATHER FH: pancreatic cancer Psychosocial History Where Do You Live? Home Who Do You Live With? spouse Services at Home: None Smoking Status: Never Smoked ETOH Use: occasional use Illicit Drug Use: denies illicit drug use Functional Ability ADLs Independent: dressing, eating, toileting, bathing. Ambulation: independent IADLs Independent: shopping, housework, finances, food prep, telephone, transportation , medication admin. Review of Systems Review of Systems: Noncontributory Exam & Diagnostic Data Vital Signs and I&O Vital Signs Date Time Temp Pulse Resp B/P B/P Pulse O2 O2 Flow FiO2 Mean Ox Delivery Rate 11/05 0840 95 Nasal 3.0L Cannula 11/05 0812 150/78 11/05 0800 Nasal 3.0L Cannula 11/05 0645 97.8 80 20 150/74 92 Nasal 4.0L Cannula 11/05 0020 96 Nasal 3.0L Cannula 11/05 0000 Nasal 3.0L Cannula 11/04 2235 98.1 107 20 120/80 93 Nasal Cannula 11/04 2105 107 130/78 11/04 1930 95 Nasal 3.0L Cannula 11/04 1600 96 Nasal 3.0L Cannula 11/04 1400 97.8 71 20 140/74 96 Intake & Output 11/05 1600 11/05 0800 11/05 0000 11/04 1600 11/04 0800 11/04 0000 Intake Total 500 750 950 360 550 Output Total 660 550 275 500 250 Balance -160 200 675 -140 300 Intake, IV 250 250 Intake, Oral 500 500 950 360 300 Output, Urine 660 550 275 500 250 Patient 252 lb 251 lb Weight Weight Bed scale Bed scale Measurement Method Well-developed, well-nourished male without acute distress, voice hoarse Head: normocephalic, atraumatic Ears: Canals- clear; Tympanic Membranes- clear Nose: Septum- midline, mucosal markedly dry ; Turbinates- mucosa markedly dry ; Airway-adequate bilaterally Polypoid degeneration in the right middle meatus Oral cavity: Mucosa- clear Oropharynx: Posterior wall- clear; tonsils2+/2+, clear Neck: supple Fiberoptic laryngoscopy: Fiberoptic scope inserted via the right nostril Nasal fossa: polypoid degeneration in the middle meatus Nasopharynx: Clear Hypopharynx: Piriform sinuses-Clear; posterior wall-clear; diffuse mucosal dryness Larynx: Epiglottis- intact; vocal cords-mildly thickened, erythematous , dry, mobile incomplete abduction on breathing, full adduction on phonation , glottic space 5 mm , ; posterior commissure-clear Esophageal inlet-intact Labs: WBC 7.4, granulocytes 91.3 Assessment/Plan Assessment/Plan 1. Acute viral laryngitis w/ Diffuse laryngeal and supraglottic mucosal dryness w/ vocal cord erythema Continue with IV methylprednisolone, azithromycin Moderate pulmonary inhalers to reduce the mucosal dryness Try facial mask with humidity instead of nasal prongs 2. Incomplete abduction of the vocal cords This possibly could be secondary to prior thoracic aorta surgery Vocal cords mobile enough to give patient a normal voice and they are starting adequately so that there was no significant difficulty with breathing at baseline If this is a new finding, then most likely it is secondary to ongoing viral infection 3. Nasal polyp, right, nonobstructing Patient is not symptomatic with nasal obstruction Recommend sinus x-rays to r/o possibility of asymptomatic chronic sinusitis 4. Diffuse xerostomia; r/o pharyngeal/ laryngeal candidiasis Oropharyngeal cultures were obtained to r/o candidiasis Consult Acknowledgment - Thank you for your consult request. Attending MD Review Statement Attending Statement Attending MD Statement: examined this patient, discuss w/resident/PA/TOEING STOCKINGS
[2017-11-05 14:24] VITALS: BP 120/68
--- NOTE | 2017-11-05 17:54 | RADIOLOGY REPORT ---
PA and lateral views of the chest and 4 views of the sinuses CLINICAL INFORMATION: Asthma exacerbation. COMPARISON: Chest x-ray 11/01/2017. FINDINGS: Sinuses: The paranasal sinuses remain well-aerated. There are no fluid levels. There is leftward deviation of the nasal septum. No fractures are identified. CHEST: Symmetric lung inflation. Median sternotomy wires. Valve prosthesis. No focal consolidation, pleural effusion, or pneumothorax. Cardiac silhouette size is again noted to be enlarged. There are no acute osseous findings. Peribronchial thickening is stable compatible with chronic small airways disease. Thoracic spondylosis. IMPRESSION: - Peribronchial thickening is stable compatible with chronic small airways disease. No acute pulmonary process. - The paranasal sinuses remain well-aerated.
[2017-11-05 20:31] VITALS: BP 128/70
[2017-11-06 07:20] VITALS: BP 134/80
--- NOTE | 2017-11-06 08:21 | PN- Housestaff ---
HumzaDenisse 11/06/17 0811: Subjective Follow-up For: Asthma Exacerbation Subjective: No overnight event. Patient felt improved on dryness after using the facial mask and discontinued on Symbicort. Patient still felt expiratory wheezing. Still no sputum output. Offered no other complaint. Review of Systems Constitutional: Reports: see HPI. Objective Last 24 Hrs of Vital Signs/I&O Vital Signs Date Time Temp Pulse Resp B/P B/P Pulse O2 O2 Flow FiO2 Mean Ox Delivery Rate 11/06 0720 97.7 88 20 134/80 96 Nasal 2.0L Cannula 11/06 0519 95 Nasal 2.0L Cannula 11/06 0000 Nasal 2.0L Cannula 11/05 2031 98.1 108 20 128/70 94 11/05 2019 108 128/70 11/05 1915 94 Nasal 3.0L Cannula 11/05 1600 Nasal 3.0L Cannula 11/05 1424 98.2 70 20 120/68 97 11/05 0840 95 Nasal 3.0L Cannula Intake & Output 11/06 1600 11/06 0800 11/06 0000 Intake Total 510 1020 Output Total 1050 500 Balance -540 520 Intake, IV 30 270 Intake, Oral 480 750 Number 0 Bowel Movements Output, Urine 1050 500 Patient 119.295 kg Weight Physical Exam General Appearance: Alert, Oriented X3, Cooperative, No Acute Distress Cardiovascular: Regular Rate Lungs: Normal Air Movement, Bilateral expiratory wheezing however improved compared to last day. Neurological: Normal Speech Extremities: Normal Pulses, Trace edema BLE Current Medications: Current Medications Sig/Poppy Start time Last Medication Dose Route Stop Time Status Admin Acetaminophen 650 MG Q6P PRN 11/01 1645 AC PO Albuterol Sulfate 2 PUF Q4-PRN PRN 11/01 2230 AC 11/04 INH 2107 Albuterol Sulfate 3 ML TID 11/01 2200 AC 11/06 INH 0758 Amlodipine Besylate 10 MG DAILY 11/02 1000 AC 11/05 PO 0812 Atorvastatin Calcium 20 MG 1700 11/02 1700 AC 11/05 PO 1732 Azithromycin 500 MG DAILY@1800 11/01 1800 DC 11/05 Dextrose/Water 250 ML IV 1732 Budesonide/ 2 PUF BID 11/01 2216 DC 11/05 Formoterol Fumarate INH 0812 Furosemide 40 MG DAILY 11/03 1345 AC 11/05 PO 0812 Guaifenesin 600 MG Q12 11/04 1533 AC 11/05 PO 2020 Hydrocodone Bitart/ 2 TAB BID PRN 11/03 1302 AC 11/05 Acetaminophen PO 2018 Ipratropium [place] 2.5 ML TID 11/01 2200 AC 11/06 INH 0758 Melatonin 5 MG AT BEDTIME 11/01 2345 AC 11/05 PO 2019 Methylprednisolone 40 MG Q8 11/04 1400 AC 11/06 IV 0545 Metoprolol Tartrate 25 MG BID 11/05 2200 AC 11/05 PO 2019 Metoprolol Tartrate 75 MG QAM 11/02 1000 AC 11/05 PO 0812 Metoprolol Tartrate 50 MG QPM 11/01 2200 DC 11/04 PO 2105 Montelukast Sodium 10 MG AT BEDTIME 11/03 2200 AC 11/05 PO 2020 Omeprazole 40 MG DAILY AC 11/02 0700 AC 11/06 PO 0544 Patient Medication 1 ED ONE ONE 11/05 1115 DC 11/05 Teaching ED 11/05 1116 1333 Warfarin Sodium 4.5 MG COUMADIN 1700 ONE 11/05 1700 DC 11/05 PO 11/05 1701 1731 Last 24 Hrs of Lab/Mamadou Results Last 24 Hrs of Labs/Mics: Laboratory Tests 11/06/17 0745: PT Pending, INR Pending 11/06/17 0730: Sodium Pending, Potassium Pending, Chloride Pending, Carbon Dioxide Pending, Anion Gap Pending, BUN Pending, Creatinine Pending, BUN/Creatinine Ratio Pending , CBC w Diff Pending, WBC Pending, RBC Pending, Hgb Pending, Hct Pending, MCV Pending, MCH Pending, MCHC Pending, RDW Pending, Plt Count Pending, MPV Pending 11/05/17 0946: CBC w Diff Cancelled, WBC Cancelled, RBC Cancelled, Hgb Cancelled, Hct Cancelled , MCV Cancelled, MCH Cancelled, MCHC Cancelled, RDW Cancelled, Plt Count Cancelled, MPV Cancelled 11/05/17 0858: Anion Gap 9, Estimated GFR > 60, BUN/Creatinine Ratio 45.0 H Microbiology 11/05 1300 HEAD/NECK: Head/Neck Culture - RECD 11/05 1300 HEAD/NECK: Gram Stain - RECD 11/05 1009 NASOPHARYN: Influenza Virus A & B Rapid Smear - COMP Assessment/Plan Assessment: Mr. Avery is a 75-year-old male, nonsmoker, nonalcoholic, with past medical history of coronary artery disease, CHF, hypertension, hyperlipidemia, NE, heart failure with preserved ejection fraction, aortic medicine, gout, arthritis and asthma came in with chief complaint of worsening shortness of breath since last 4 days, previously being seen at the ER on October 30 and being discharged on by mouth prednisone and Augmentin return back to the emergency department with worsening shortness of breath, especially on exertion. #Asthma exacerbation CXR showed no acute pulmonary findings with cardiomegaly. ECHO showed EF > 60% with mechanical prosthesis aortic valve. * Continue TRC nebulization, continue oxygen to maintain saturation greater than 92%, currently under 2LNC * Continue IV Solu-Medrol increased to 40mg q8 per pulm recommendation * Continue IV Zithromax 250mg, currently day 5, for total of 5 days * Cardiology and Pulmonolgy has r/o CHF exacerbation #Hx of Diastolic heart failure: Patient was initially admitted to Telemetry and underwent cardiac workup. ECHO showed EF > 60% with mechanical prosthesis aortic valve, which was similar to his baseline with good LV systolic functions. CXR 11/01 & 11/05 showed stable cardiomegaly however no sign of volume overload from CHF exacerbation - Patient was discontinued on telemetry as his SOB was not likely from CHF exacerbation, but more of asthamtic bronchitis picture. #Elevated BUN: without change of Cr, or signs of volume depletion as patient's been eating and drinking all well and making normal urine output. BUN could be from overproduction from steroid therapy. - Continue daily BEP monitor. BUN 35 on latest lab. #History of aortic aneurysm/aortic valve replacement on Coumadin INR was 3.69 on latest lab. * Will hold coumadin today to maintain INR 2.5-3.5. * Dose Coumadin per INR daily, target INR 2.5-3.5, home dose 4.5mg Coumadin #History of hyperlipidemia, coronary artery disease, hypertension * Continue atorvastatin, metoprolol 25 mg in the morning and 50 mg in the evening, continue amlodipine. DVT PPX Warfarin + ALPS Heart Healthy Diet Full code Problem List: 1. Hx of mechanical aortic valve replacement 2. Asthma exacerbation Pain Ratin Pain Location: NA Pain Goal: Remain pain free Pain Plan: see AP Tomorrow's Labs & Rationales: CBC/BEP Candido Rouse 11/06/17 1242: Attending MD Review Statement Attending Statement Attending MD Statement: examined this patient, discuss w/resident/PA/REAL ESTATE APPRAISER SUPERVISOR, agreed w/resident/PA/REAL ESTATE APPRAISER SUPERVISOR, discussed with family, reviewed EMR data (avail), discussed with nursing, discussed with case mgmt, reviewed images, amended to note Attending Assessment/Plan: Patient admitted initially to telemetry monitoring for dypnea at rest possible asthma exacerbation and possible component of CHF with preserved EF. Negative serial cardiac enzymes, cardiology and pulmonary consulted transferred to Gen/ med. Patient seen/examined bedside. Patient still c/o shortness of breath, b/l wheezing. Oxygn 2l, pedal edema 1+. Started on humidifier. Patient on PO lasix maintenance dose at home, Continue iv steroids 40 q 8, azithromycin, Bds as per pulm. ECHO with preserved EF, humidified oxygen supplementation. ENT eval for vocal cord dysfunction with dryness noted. Sinus clean. Likely viral larynigits complicating asthma. gi/dvt prophylaxis full code.
--- NOTE | 2017-11-06 08:38 | PN- Pulmonary ---
Subjective HPI/Critical Care Issues: ENT evaluation reviewed. Patient feels less short of breath and oxygen saturations are improved. Objective Current Medications: Current Medications Sig/Poppy Start time Last Medication Dose Route Stop Time Status Admin Acetaminophen 650 MG Q6P PRN 11/01 1645 AC PO Albuterol Sulfate 2 PUF Q4-PRN PRN 11/01 2230 AC 11/04 INH 2107 Albuterol Sulfate 3 ML TID 11/01 2200 AC 11/06 INH 0758 Amlodipine Besylate 10 MG DAILY 11/02 1000 AC 11/05 PO 0812 Atorvastatin Calcium 20 MG 1700 11/02 1700 AC 11/05 PO 1732 Azithromycin 500 MG DAILY@1800 11/01 1800 DC 11/05 Dextrose/Water 250 ML IV 1732 Budesonide/ 2 PUF BID 11/01 2216 DC 11/05 Formoterol Fumarate INH 0812 Furosemide 40 MG DAILY 11/03 1345 AC 11/05 PO 0812 Guaifenesin 600 MG Q12 11/04 1533 AC 11/05 PO 2020 Hydrocodone Bitart/ 2 TAB BID PRN 11/03 1302 AC 11/05 Acetaminophen PO 2018 Ipratropium [employer] 2.5 ML TID 11/01 2200 AC 11/06 INH 0758 Melatonin 5 MG AT BEDTIME 11/01 2345 AC 11/05 PO 2019 Methylprednisolone 40 MG Q8 11/04 1400 AC 11/06 IV 0545 Metoprolol Tartrate 25 MG BID 11/05 2200 AC 11/05 PO 2019 Metoprolol Tartrate 75 MG QAM 11/02 1000 AC 11/05 PO 0812 Metoprolol Tartrate 50 MG QPM 11/01 2200 DC 11/04 PO 210 Montelukast Sodium 10 MG AT BEDTIME 11/03 2200 AC 11/05 PO 2020 Omeprazole 40 MG DAILY AC 11/02 0700 AC 11/06 PO 0544 Patient Medication 1 ED ONE ONE 11/05 1115 DC 11/05 Teaching ED 11/05 1116 1333 Warfarin Sodium 4.5 MG COUMADIN 1700 ONE 11/05 1700 DC 11/05 PO 11/05 1701 1731 Vital Signs & I&O Last 24 Hrs of Vitals and I&O: Vital Signs Date Time Temp Pulse Resp B/P B/P Pulse O2 O2 Flow FiO2 Mean Ox Delivery Rate 11/06 0720 97.7 88 20 134/80 96 Nasal 2.0L Cannula 11/06 0519 95 Nasal 2.0L Cannula 11/06 0000 Nasal 2.0L Cannula 11/05 2030 98.1 108 20 128/70 94 11/05 2019 108 128/70 11/05 1915 94 Nasal 3.0L Cannula 11/05 1600 Nasal 3.0L Cannula 11/05 1424 98.2 70 20 120/68 97 11/05 0840 95 Nasal 3.0L Cannula Intake & Output 11/06 1600 11/06 0800 11/06 0000 Intake Total 510 1020 Output Total 1050 500 Balance -540 520 Intake, IV 30 270 Intake, Oral 480 750 Number 0 Bowel Movements Output, Urine 1050 500 Patient 263 lb Weight Since saturation 2 L 96% exam of his chest shows markedly improved bronchospasm cardiac exam shows regular S1 and S2 Impression/Plan Impression/Plan Impression/Plan: 77-year-old admitted with component of asthmatic bronchitis and mild congestive heart failure based on elevated BNP. He's developing progressive prerenal azotemia and decreased diuretics. Oxygen saturation is improved. Recommendations: Decrease diuretic regimen. Taper FiO2 with saturations now normal. We'll hope to begin oral prednisone tomorrow.
[2017-11-06 08:42] LABS: ABSOLUTE BASOPHIL COUNT 0 /CUMM (0.0-0.2); ABSOLUTE EOSINOPHIL COUNT 0 /CUMM (0.0-0.7); ABSOLUTE GRANULOCYTE CT 7.2 /CUMM (1.4-6.5); ABSOLUTE LYMPH COUNT 0.3 /CUMM (1.2-3.4); ABSOLUTE MONOCYTE COUNT 0.2 /CUMM (0.10-0.60); BASOPHIL % 0.3 % (0.0-2.0); EOSINOPHIL % 0 % (0-5); MEAN CORPUSCULAR HGB 32.5 PG (27.0-31.0); MEAN CORPUSCULAR HGB CONC 33.6 G/DL (33.0-37.0); MEAN CORPUSCULAR VOLUME 96.6 FL (80.0-94.0); PLATELET COUNT 166 /CUMM (130-400); RBC DISTRIBUTION WIDTH 14.5 % (11.5-14.5); RED BLOOD CELL CT 4.76 /CUMM (4.70-6.10); WHITE BLOOD CELL COUNT 7.6 /CUMM (4.8-10.8)
[2017-11-06 09:17] LABS: PT 38.2 SEC (9.4-12.5)
[2017-11-06 10:10] LABS: GRANULOCYTE % 93.6 % (42.2-75.2)
--- NOTE | 2017-11-06 13:54 | PN- Cardiology ---
Subjective Subjective: The patient feels a little better today. He is now off oxygen and pending saturation to see if he can be weaned. He has no chest pain. Objective Vital Signs and I&Os Vital Signs Date Time Temp Pulse Resp B/P B/P Pulse O2 O2 Flow FiO2 Mean Ox Delivery Rate 11/06 0939 98 138/70 11/06 0938 98 138/70 11/06 0720 97.7 88 20 134/80 96 Nasal 2.0L Cannula 11/06 0519 95 Nasal 2.0L Cannula 11/06 0000 Nasal 2.0L Cannula 11/05 203 98.1 108 20 128/70 94 11/05 2018 108 128/70 11/05 1915 94 Nasal 3.0L Cannula 11/05 1600 Nasal 3.0L Cannula 11/05 1424 98.2 70 20 120/68 97 Intake & Output 11/06 1600 11/06 0800 11/06 0000 11/05 1600 11/05 0800 11/05 0000 Intake Total 510 1020 200 500 750 Output Total 1050 500 660 550 Balance -540 520 200 -160 200 Intake, IV 30 270 250 Intake, Oral 480 750 200 500 500 Number 0 Bowel Movements Output, Urine 1050 500 660 550 Patient 262 lb 263 lb 252 lb Weight Weight Bed scale Measurement Method Physical Exam: He looks more comfortable than before HEENT exam is normal Chest reveals mild wheezing and a few rhonchi Heart regular rhythm, loud prosthetic sounds, soft systolic murmur Extremities trace edema Current Medications: Current Medications Sig/Poppy Start time Last Medication Dose Route Stop Time Status Admin Acetaminophen 650 MG Q6P PRN 11/01 1645 AC PO Albuterol Sulfate 2 PUF Q4-PRN PRN 11/01 2230 AC 11/04 INH 2107 Albuterol Sulfate 3 ML TID 11/01 2200 AC 11/06 INH 1343 Amlodipine Besylate 10 MG DAILY 11/02 1000 AC 11/06 PO 0939 Atorvastatin Calcium 20 MG 1700 11/02 1700 AC 11/05 PO 1732 Azithromycin 500 MG DAILY@1800 11/01 1800 DC 11/05 Dextrose/Water 250 ML IV 1732 Budesonide/ 2 PUF BID 11/01 2216 DC 11/05 Formoterol Fumarate INH 0812 Furosemide 20 MG DAILY 11/07 1000 DC PO Furosemide 40 MG DAILY 11/07 1000 AC PO Furosemide 40 MG DAILY 11/03 1345 DC 11/06 PO 0937 Guaifenesin 600 MG Q12 11/04 1533 AC 11/06 PO 1041 Hydrocodone Bitart/ 2 TAB BID PRN 11/03 1302 AC 11/06 Acetaminophen PO 0858 Ipratropium [place] 2.5 ML TID 11/01 2200 AC 11/06 INH 1344 Melatonin 5 MG AT BEDTIME 11/01 2345 AC 11/05 PO 2019 Methylprednisolone 40 MG Q8 11/04 1400 AC 11/06 IV 0545 Metoprolol Tartrate 25 MG BID 11/05 2200 AC 11/06 PO 0938 Metoprolol Tartrate 75 MG QAM 11/02 1000 AC 11/06 PO 0938 Montelukast Sodium 10 MG AT BEDTIME 11/03 2200 AC 11/05 PO 2020 Omeprazole 40 MG DAILY AC 11/02 0700 AC 11/06 PO 0544 Warfarin Sodium 4.5 MG COUMADIN 1700 ONE 11/05 1700 DC 11/05 PO 11/05 1701 1731 Results Last 48 Hrs of Labs/Mics: Laboratory Tests 11/06/17 0745: PT 38.2 H, INR 3.69 H 11/06/17 0730: Anion Gap 9, Estimated GFR > 60, BUN/Creatinine Ratio 43.8 H, CBC w Diff NO MAN DIFF REQ, RBC 4.76, MCV 96.6 H, MCH 32.5 H, MCHC 33.6, RDW 14.5, MPV 9.0, Gran % 93.6 H, Lymphocytes % 3.4 L, Monocytes % 2.7, Eosinophils % 0, Basophils % 0.3, Absolute Granulocytes 7.2 H, Absolute Lymphocytes 0.3 L, Absolute Monocytes 0.2, Absolute Eosinophils 0, Absolute Basophils 0 11/05/17 0946: CBC w Diff Cancelled, WBC Cancelled, RBC Cancelled, Hgb Cancelled, Hct Cancelled , MCV Cancelled, MCH Cancelled, MCHC Cancelled, RDW Cancelled, Plt Count Cancelled, MPV Cancelled 11/05/17 0858: Anion Gap 9, Estimated GFR > 60, BUN/Creatinine Ratio 45.0 H 11/05/17 0739: PT 27.4 H, INR 2.63 H, CBC w Diff NO MAN DIFF REQ, RBC 4.70, MCV 97.2 H, MCH 32.7 H, MCHC 33.7, RDW 14.3, MPV 8.4, Gran % 91.3 H, Lymphocytes % 5.7 L, Monocytes % 2.9, Eosinophils % 0, Basophils % 0.1, Absolute Granulocytes 6.7 H, Absolute Lymphocytes 0.4 L, Absolute Monocytes 0.2, Absolute Eosinophils 0, Absolute Basophils 0 Microbiology 11/05 1009 NASOPHARYN: Influenza Virus A & B Rapid Smear - COMP Recent Imaging Studies: PATIENT: CANIDDA VALERO PRESENT AGE: 77 PATIENT ACCOUNT NO: [id number] : 40 LOCATION: [facility] ORDERING PHYSICIAN: Denisse Ching MD SERVICE DATE: 11/05/17- EXAM TYPE: RAD - XRY-CHEST XRAY, TWO VIEWS; XRY-SINUSES, COMPLETE PA and lateral views of the chest and 4 views of the sinuses CLINICAL INFORMATION: Asthma exacerbation. COMPARISON: Chest x-ray 11/01/2017. FINDINGS: Sinuses: The paranasal sinuses remain well-aerated. There are no fluid levels. There is leftward deviation of the nasal septum. No fractures are identified. CHEST: Symmetric lung inflation. Median sternotomy wires. Valve prosthesis. No focal consolidation, pleural effusion, or pneumothorax. Cardiac silhouette size is again noted to be enlarged. There are no acute osseous findings. Peribronchial thickening is stable compatible with chronic small airways disease. Thoracic spondylosis. IMPRESSION: - Peribronchial thickening is stable compatible with chronic small airways disease. No acute pulmonary process. - The paranasal sinuses remain well-aerated. DICTATED BY: Foster Mares MD DATE/TIME DICTATED:11/05/171746 [facility] ATTENDANT:DENZEL DATE/TIME TRANSCRIBED:11/05/171746 CONFIDENTIAL, DO NOT COPY WITHOUT APPROPRIATE AUTHORIZATION. <Electronically signed in Other Vendor System> SIGNED BY: Foster Mares MD 11/05/17 5110 Assessment/Plan Assessment/Plan Bill appears a little bit better today from a respiratory standpoint. His chest x-ray did not show any evidence of congestive heart failure. Cardiac-perez he is stable I recommended no changes. I would continue him on the same medications. Please call for further cardiology input. Continue telemetry? Not applicable
[2017-11-06 14:14] VITALS: BP 142/80
--- NOTE | 2017-11-06 15:16 | Patient Discharge Instructions ---
Discharge Instructions General Discharge Information You were seen/treated for: #Asthma exacerbation #Hx of Diastolic heart failure #History of aortic aneurysm/aortic valve replacement on Coumadin #History of hyperlipidemia, coronary artery disease, hypertension #Elevated BUN Special Instructions: - Please follow up with Dr. Lang for your Asthma within 1-2 weeks of discharge. - Please follow up with your primary care physician within 1-2 week of discharge. Inform your primary care physician of this admission to [facility]. - Continue your current medications per discharge instructions. - Please watch for these problems: Fever, Chills, Nausea, Vomiting, Shortness of Breath, Productive Cough, Chest Pain/Discomfort, Abdominal Pain, Active Bleeding or Bloody urine/stool. Diet Continue normal diet: Yes Activity Full Activity/No Limits: Yes Acute Coronary Syndrome Inclusion Criteria At DC or during hospital stay patient has or had the following: ACS DIAGNOSIS No Discharge Core Measures Meds if any: Prescribed or Continued at Discharge Meds if any: NOT Prescribed or Continued at Discharge Congestive Heart Failure Inclusion Criteria At DC or during hospital stay patient has or had the following: CHF DIAGNOSIS No Discharge Core Measures Meds if any: Prescribed or Continued at Discharge Meds if any: NOT Prescribed or Continued at Discharge Cerebrovascular accident Inclusion Criteria At DC or during hospital stay patient has or had the following: CVA/TIA Diagnosis No Discharge Core Measures Meds if any: Prescribed or Continued at Discharge Meds if any: NOT Prescribed or Continued at Discharge Venous thromboembolism Inclusion Criteria VTE Diagnosis No VTE Type NONE VTE Confirmed by (Test) NONE Discharge Core Measures - Per Current guidelines, there needs to be overlap - treatment for the first 5 days of Warfarin therapy. - If discharged on Warfarin prior to 5 days of - overlap therapy, the patient will need to be - assessed for post discharge needs including - *Post discharge parental anticoagulation - *Warfarin and/or parental anticoagulation education - *Follow up date to check INR post discharge At least 5 days overlap therapy as Inpatient No Meds if any: Prescribed or Continued at Discharge Note: Overlap Therapy is Warfarin and Anticoagulant Meds if any: NOT Prescribed or Continued at Discharge
--- NOTE | 2017-11-06 15:18 | Discharge Summary ---
Visit Information Visit Dates Admission Date: 11/01/17 Discharge Date: 11/16/17 Hospital Course Course Attending Physician: Candido Rouse MD Primary Care Physician: Yo FERNANDEZ,Vandana [place] Hospital Course: Mr. Avery is a 75-year-old male, with past medical history of coronary artery disease, CHF, hypertension, hyperlipidemia, OH, heart failure with preserved ejection fraction, aortic valve replacement on Coumadin, gout, arthritis and asthma came in with chief complaint of worsening shortness of breath since last 4 days prior to his admission. Below is a list of conditions he was admitted and treated for: Asthma Exacerbation with hypoxic respiratroy failure and MRSA pneumonia Prior to his admission he had previously been seen in the ER on October 30 and had been discharged on oral prednisone and Augmentin. He returned back to the emergency department with worsening shortness of breath, especially on exertion. He was started on oxygen supplementation along with TRC/nebs as needed. He received IV Solu-Medrol and Azithromycin as well. His sputum culture showed moderate growth of MRSA. Given his clinical picture he was started on IV Vancomycin for a total of 7 days. Patient responded gradually but well to treatment. He received physical therapy with walking/stairs trials with and without oxygen. At the time of discharge, his oxygen had been weaned off and his saturations remained >93% with stairs and without oxygen. He was discharged on a Prednisone taper and his antibiotic was switched to oral Minocycline to complete an antibiotic course of 14 days. He was recommended to follow up with his electrical solderer within one week of discharge. Chronic heart failure with preserved ejection fraction: On admission his ProBNP was found to be elevated from baseline. ACS ruled out with three sets of negative troponins and EKG. He was started on IV Lasix 40 mg twice a day as his symptoms were partially believed to be due to CHF. He was later switched to his usual oral regimen of lasix. A repeat Echo was obtained which did not show any changes from baseline with good left ventricular systolic function and acceptable valvular function. History of aortic valve replacement on Coumadin Maintained on Coumadin with target INR of 2.5-3.5. History of hyperlipidemia, coronary artery disease, hypertension Continued on atorvastatin, metoprolol 25 mg twice a day (reduced dose due to bronchospasm) and amlodipine. DVT Prophylaxis: Patient was on Coumadin with close monitoring of his INR. Allergies: Coded Allergies: No Known Allergies (11/01/17) Significant Procedures: SERVICE DATE: 11/13/17 EXAM TYPE: RAD - XRY-CHEST XRAY, TWO VIEWS FINDINGS: New patchy retrocardiac opacities are seen. New trace bilateral pleural effusions. The right lung appears clear. No evidence of pneumothorax bilaterally. The cardiomediastinal silhouette is stable. Evidence of previous heart valve replacement. Median sternotomy wires are intact. No acute osseous abnormality. Degenerative changes of the spine. IMPRESSION: New patchy retrocardiac opacity with new trace bilateral pleural effusions. SERVICE DATE: 11/07/17- EXAM TYPE: CAT - CT CHEST WO IV CONTRAST FINDINGS: Evaluation is slightly technically limited due to motion-related artifacts. DIGITAL MARKETING LEAD: Unremarkable. LUNGS: Previously identified significant patchy airspace disease at both upper lobes and posteromedial aspects of both lower lobes of the lung show interval resolution. Focal somewhat peribronchiolar nodularities noted at superior segment of left lower lobe of the lung. On the prior study, dense airspace consolidation was noted in this region. The findings may represent new versus resolving airspace disease. Followup images to document complete resolution is recommended. The remainder of the lung hopkins otherwise appear clear. The tracheobronchial tree appeared patent. MEDIASTINUM: There is moderate cardiomegaly and significant atherosclerotic disease including coronary arterial calcifications present. Aortic valve replacement is noted, appears unchanged. There is no pathologically enlarged mediastinal and/or hilar lymphadenopathy identified on this nonenhanced study. PLEURA: There is no pleural effusion. No pleural mass or thickening. AXILLA: No lymphadenopathy. UPPER ABDOMEN: No definite focal abnormalities identified on this nonenhanced study. The gallbladder is surgically absent. Extensive atherosclerotic disease is noted within the aorta and its visualized branches. There is no adrenal mass present. OSSEOUS STRUCTURES: 1.6 cm maximum dimension focal area of sclerosis is noted involving L1 vertebral body on the right, increased by 0.2 cm since 2013 and by 0.8 cm since 2007, may represent slow-growing bone island versus less likely metastasis. IMPRESSION: 1. Significant interval resolution of previously documented bilateral predominately upper lobar patchy airspace disease since prior CT of the chest done on 07/14/2017. Subtle nodular peribronchiolar opacities are however identified at superior segment of left lower lobe of the lung, may represent new versus residual airspace disease. Continued followup to document complete resolution is recommended. 2. Persistent stable moderate cardiomegaly and significant atherosclerotic disease including coronary arterial calcifications. 3. Nonspecific 1.6 cm focal area of sclerotic lesion involving L1 vertebral body to the right of the midline, may represent slow-growing bone island versus less likely metastasis. SERVICE DATE: 11/05/17- EXAM TYPE: RAD - XRY-CHEST XRAY, TWO VIEWS; XRY-SINUSES, COMPLETE FINDINGS: Sinuses: The paranasal sinuses remain well-aerated. There are no fluid levels. There is leftward deviation of the nasal septum. No fractures are identified. CHEST: Symmetric lung inflation. Median sternotomy wires. Valve prosthesis. No focal consolidation, pleural effusion, or pneumothorax. Cardiac silhouette size is again noted to be enlarged. There are no acute osseous findings. Peribronchial thickening is stable compatible with chronic small airways disease. Thoracic spondylosis. IMPRESSION: - Peribronchial thickening is stable compatible with chronic small airways disease. No acute pulmonary process. - The paranasal sinuses remain well-aerated. SERVICE DATE: 11/01/17-1548 EXAM TYPE: RAD - XRY-PORTABLE CHEST XRAY FINDINGS: Lungs are well expanded. No evidence of acute interstitial edema, focal consolidation, pleural effusion or pneumothorax. Again noted are cardiomegaly, replaced aortic valve, and intact sternotomy wires. The visualized bones are intact. IMPRESSION: 1. No acute pulmonary findings compared to 01/27/2018. 2. Cardiomegaly. SERVICE DATE: 11/01/17- EXAM TYPE: CARD - ECHOCARDIOGRAM FINDINGS Left Ventricle Mild left ventricular dilatation. Mild concentric left ventricular hypertrophy. Normal left ventricular ejection fraction visually estimated at > 60%. There is a small area of posterobasal hypo-to akinesis seen. Normal left ventricular diastolic filling pattern for age. Right Ventricle The right ventricle is normal in size and function. Right Atrium The right atrium is normal in size. Left Atrium Mild to moderate left atrial dilatation. Mitral Valve Mild thickening/calcification of the mitral valve leaflets. Mild mitral annular calcification. Trace mitral regurgitation. Aortic Valve The aortic valve is a mechanical prosthesis which is not well visualized. There is a mild to moderate gradient across the valve of mean about 20 mmHg. No aortic regurgitation. Tricuspid Valve The tricuspid valve is normal in structure and function. There is trace tricuspid regurgitation. Right ventricular systolic pressure estimated to be elevated at 40 mmHg. Pulmonic Valve Structurally normal pulmonic valve. Trace pulmonic regurgitation. . Pericardium Normal pericardium without effusion. No pleural effusion. Great Vessels Normal aortic root dimension. The aortic arch and great vessels are well seen and are normal. CONCLUSIONS Mild left ventricular dilatation. Mild concentric left ventricular hypertrophy. Normal left ventricular ejection fraction visually estimated at > 60%. There is a small area of posterobasal hypo-to akinesis seen. Normal left ventricular diastolic filling pattern for age. Mild to moderate left atrial dilatation. Mild thickening/calcification of the mitral valve leaflets. Mild mitral annular calcification. Trace mitral regurgitation. 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 There is a mild to moderate gradient across the valve of mean about 20 mmHg. No aortic regurgitation. Normal aortic root dimension. Right ventricular systolic pressure estimated to be elevated at 40 mmHg. Disposition Summary Disposition Principal Diagnosis: Asthma exacerbation chronic heart failure with preserved ejection fraction Acute hypoxic respiratory failure Additional Diagnosis: History of Diastolic heart failure History of aortic aneurysm/aortic valve replacement on Coumadin History of hyperlipidemia, coronary artery disease, hypertension Discharge Disposition: home or self care Discharge Instructions General Discharge Information Code Status: Full Code Patient's Diet: Regular Patient's Activity: As tolerated Follow-Up Instructions/Appts: Please follow up with your PCP, electrical solderer and soils analyst within one week of discharge. Medications at Discharge Discharge Medications: Stop taking the following medications: Prednisone (Prednisone) 10 MG TABLET ORAL DAILY Qty = 16 Continue taking these medications: Albuterol Sulfate (Proair Hfa) 90 MCG HFA.AER.AD 2 Puff Inhale through mouth EVERY 4-6 HOURS NEEDED as needed for ASTHMA Amlodipine Besylate (Amlodipine Besylate) 10 MG TABLET 1 Tablet ORAL DAILY Comments: Last Taken: 11/16/17 Time: 9 AM Rosuvastatin Calcium (Crestor) 5 MG TABLET 1 Tablet ORAL DAILY Comments: LAST TAKEN: 11/15/17 @ 7 PM RECEIVED LIPITOR REPLACEMENT Warfarin Sodium (Coumadin) (Unknown Strength) TABLET 4.5 Milligram ORAL DAILY Comments: Last Taken: 11/15/17 (4.5 MG) Time: 5 PM Budesonide/Formoterol Fumarate (Symbicort 160-4.5 Mcg Inhaler) 160 MCG-4.5 MCG/ ACTUATION HFA.AER.AD 2 Puff Inhale through mouth TWICE DAILY Comments: Metoprolol Tartrate (Metoprolol Tartrate) 50 MG TABLET 1 Tablet ORAL TWICE DAILY Qty = 180 Comments: Last Taken: 11/16/17 Time: 9 AM (25 MG) Albuterol Sulfate (Albuterol Sulfate) 2.5 MG/3 ML (0.083 %) VIAL.NEB 1 Vial Inhale Solution EVERY 4 HOURS NEEDED as needed for SHORTNESS OF BREATH Comments: Tramadol HCl (Tramadol HCl) 50 MG TABLET 1 Tablet ORAL EVERY SIX HOURS NEEDED as needed for PAIN Qty = 30 Comments: NOT GIVEN IN HOSPITAL Furosemide (Furosemide) 40 MG TABLET 1 Tablet ORAL DAILY Qty = 30 Instructions: . Comments: Last Taken: 11/16/17 Time: 9 AM Ipratropium/Albuterol Sulfate (Iprat-Albut 0.5-3(2.5) MG/3 Ml) 0.5 MG-3 MG (2.5 MG BASE)/3 ML AMPUL.NEB 1 VIAL Inhale through mouth Q6HR as needed for WHEEZING Qty = 1 Hydrocodone/Acetaminophen (Vicodin 5-300 MG Tablet) 5 MG-300 MG TABLET 1 Tablet ORAL As Directed as needed for PAIN Qty = 150 Comments: LAST TAKEN: 11/16/17 @ 10:30 AM Multiple Vitamin (Multivitamins) 1 EACH TABLET 1 Tablet ORAL DAILY Comments: NOT TAKEN IN HOSPITAL Lactobacillus Acidophilus (Probiotic) (Unknown Strength) CAPSULE Unknown Dose ORAL DAILY Comments: NOT TAKEN IN HOSPITAL Omeprazole Magnesium (Prilosec Otc) 20 MG TABLET.DR 1 Tablet ORAL DAILY Comments: LAST TAKEN: 11/16/17 @ 9 AM (40 MG) Start taking the following new medications: Prednisone (Prednisone) 10 MG TABLET 1 Tablet ORAL DAILY Qty = 45 No Refills Instructions: Please take 5 tablets of Prednisone 10mg from 11/17/17 to 11/19/17 Then take 4 tablets of Prednisone 10mg from 11/20/17 to 11/22/17 Then take 3 tablets of Prednisone 10mg from 11/23/17 to 11/25/17 Then take 2 tablets of Prednisone 10mg from 11/26/17 to 11/28/17 Then take 1 tablet of Prednisone 10mg from 11/29/17 to 12/01/17 Comments: Please take 5 tablets of Prednisone 10mg from 11/17/17 to 11/19/17 Then take 4 tablets of Prednisone 10mg from 11/20/17 to 11/22/17 Then take 3 tablets of Prednisone 10mg from 11/23/17 to 11/25/17 Then take 2 tablets of Prednisone 10mg from 11/26/17 to 11/28/17 Then take 1 tablet of Prednisone 10mg from 11/29/17 to 12/01/17 Minocycline HCl (Minocycline HCl) 100 MG CAPSULE 1 Capsule ORAL TWICE DAILY Qty = 14 No Refills Comments: LAST TAKEN: 11/16/17 @ 9AM Copies To: Yo FERNANDEZ,Vandana Attending MD Review Statement Documenting Attending: Candido Rouse MD Other Findings: Patient needs to follow up with pulmonary and cardiology in 1-2 weeks of discharge.
[2017-11-06 20:46] VITALS: BP 138/60
[2017-11-06 22:14] VITALS: BP 138/60
[2017-11-07 06:53] VITALS: BP 140/74
--- NOTE | 2017-11-07 07:19 | PN- Housestaff ---
See Addendum Denisse Ching 11/07/17 0719: Subjective Follow-up For: Asthma Exacerbation Subjective: No overnight event. Review of Systems Constitutional: Reports: see HPI. Objective Last 24 Hrs of Vital Signs/I&O Vital Signs Date Time Temp Pulse Resp B/P B/P Pulse O2 O2 Flow FiO2 Mean Ox Delivery Rate 11/07 0653 98.0 88 20 140/74 95 11/07 0525 93 Nasal 2.0L Cannula 11/07 0000 90 Nasal 2.0L Cannula 11/06 2214 98.2 99 20 138/60 90 Nasal Cannula 11/06 2046 90 138/60 11/06 2045 90 138/60 11/06 1822 93 Aerosol 35% Mask 11/06 1600 96 Venti Mask 30% 11/06 1414 98.5 69 20 142/80 94 11/06 0939 98 138/70 11/06 0938 98 138/70 Intake & Output 11/07 1600 11/07 0800 11/07 0000 Intake Total 480 370 Output Total 535 400 Balance -55 -30 Intake, IV 10 Intake, Oral 480 360 Output, Urine 535 400 Patient 114.901 kg Weight Weight Bed scale Measurement Method Physical Exam General Appearance: No Acute Distress, sleeping Cardiovascular: Regular Rate Lungs: Normal Air Movement, low pitch rhonchi during breathing, audible mild wheeze while breathing but improved from last day. Current Medications: Current Medications Sig/Poppy Start time Last Medication Dose Route Stop Time Status Admin Acetaminophen 650 MG .STK-MED ONE 11/06 2059 DC PO 11/06 2100 Acetaminophen 650 MG Q6P PRN 11/01 1645 AC PO Albuterol Sulfate 2 PUF Q4-PRN PRN 11/01 2230 AC 11/04 INH 2107 Albuterol Sulfate 3 ML TID 11/01 2200 AC 11/07 INH 0508 Amlodipine Besylate 10 MG DAILY 11/02 1000 AC 11/06 PO 0939 Atorvastatin Calcium 20 MG 1700 11/02 1700 AC 11/06 PO 1708 Furosemide 20 MG DAILY 11/07 1000 DC PO Furosemide 40 MG DAILY 11/07 1000 AC PO Furosemide 40 MG DAILY 11/03 1345 DC 11/06 PO 0937 Guaifenesin 600 MG Q12 11/04 1533 AC 11/06 PO 2040 Hydrocodone Bitart/ 2 TAB BID PRN 11/03 1302 AC 11/06 Acetaminophen PO 204 Ipratropium [place] 2.5 ML TID 11/01 220 AC 11/07 INH 0508 Melatonin 5 MG AT BEDTIME 11/01 2345 AC 11/06 PO 204 Methylprednisolone 40 MG Q8 11/04 1400 AC 11/07 IV 0632 Metoprolol Tartrate 25 MG BID 11/05 2199 AC 11/06 PO 204 Metoprolol Tartrate 75 MG QAM 11/02 1000 AC 11/06 PO 0938 Montelukast Sodium 10 MG AT BEDTIME 11/03 2199 AC 11/06 PO 204 Omeprazole 40 MG DAILY AC 11/02 0700 AC 11/07 PO 0632 Assessment/Plan Assessment: Mr. Avery is a 75-year-old male, nonsmoker, nonalcoholic, with past medical history of coronary artery disease, CHF, hypertension, hyperlipidemia, NC, heart failure with preserved ejection fraction, aortic medicine, gout, arthritis and asthma came in with chief complaint of worsening shortness of breath since last 4 days, previously being seen at the ER on October 30 and being discharged on by mouth prednisone and Augmentin return back to the emergency department with worsening shortness of breath, especially on exertion. #Asthma exacerbation CXR showed no acute pulmonary findings with cardiomegaly. ECHO showed EF > 60% with mechanical prosthesis aortic valve. * Continue TRC nebulization, continue oxygen to maintain saturation greater than 92%, currently under 2LNC * Switched to PO Prednisone 40mg PO for 3 days and will taper slowly per Pulm recommendation. - Will check Non-contrast CT if no clinical improvement. * Completed 5-day course of Zithromax. * Cardiology and Pulmonolgy has r/o CHF exacerbation #Hx of Diastolic heart failure: Patient was initially admitted to Telemetry and underwent cardiac workup. ECHO showed EF > 60% with mechanical prosthesis aortic valve, which was similar to his baseline with good LV systolic functions. CXR 11/01 & 11/05 showed stable cardiomegaly however no sign of volume overload from CHF exacerbation - Patient was discontinued on telemetry as his SOB was not likely from CHF exacerbation, but more of asthamtic bronchitis picture. - Patient would like to be maintained on Lasix 40mg qd PO as that had been his home dose. #Elevated BUN: without change of Cr, or signs of volume depletion as patient's been eating and drinking all well and making normal urine output. BUN could be from overproduction from steroid therapy. - Continue daily BEP monitor. BUN 35 on latest lab. #History of aortic aneurysm/aortic valve replacement on Coumadin INR was 3.69 -> 4.67 on latest lab. * Will hold coumadin today. * Dose Coumadin per INR daily, target INR 2.5-3.5, home dose 4.5mg Coumadin #History of hyperlipidemia, coronary artery disease, hypertension * Continue atorvastatin, metoprolol 25 mg in the morning and 50 mg in the evening, continue amlodipine. DVT PPX Warfarin + ALPS Heart Healthy Diet Full code Problem List: 1. Asthma exacerbation 2. Hx of mechanical aortic valve replacement Pain Ratin Pain Location: NA Pain Goal: Remain pain free Pain Plan: see AP Tomorrow's Labs & Rationales: CBC/BEP/INR Candido Rouse 11/07/17 1116: Attending MD Review Statement Attending Statement Attending MD Statement: examined this patient, discuss w/resident/PA/[employer]RO[employer]AGG[employer] PORTER, agreed w/resident/PA/[employer]RO[employer]AG[employer] PORTER, discussed with family, reviewed EMR data (avail), discussed with nursing, discussed with case mgmt, reviewed images, amended to note Attending Assessment/Plan: Patient admitted initially to telemetry monitoring for dypnea at rest possible asthma exacerbation and possible component of CHF with preserved EF. Negative serial cardiac enzymes, cardiology and pulmonary consulted transferred to Gen/ med. Patient seen/examined bedside. Patient still c/o shortness of breath, b/l wheezing. Humidified Oxygn 2l, pedal edema 1+. Feels little improvement. Patient on PO lasix maintenance dose at home, PO steroids as per pulm, Bds as per pulm. ECHO with preserved EF, humidified oxygen supplementation. ENT eval for vocal cord dysfunction with dryness noted. Sinus clean. Likely viral larynigits complicating asthma. gi/dvt prophylaxis full code.
--- NOTE | 2017-11-07 08:00 | PN- Pulmonary ---
Subjective HPI/Critical Care Issues: Patient continues to have cough which she feels is somewhat looser bone unable to expectorate sputum. Room air oxygen saturation reportedly 90%. He feels better with humidified mask. Cultures remain negative. Chest x-ray indicative of bronchitis. Objective Current Medications: Current Medications Sig/Poppy Start time Last Medication Dose Route Stop Time Status Admin Acetaminophen 650 MG .STK-MED ONE 11/06 205 DC PO 11/06 2100 Acetaminophen 650 MG Q6P PRN 11/01 1645 AC PO Albuterol Sulfate 2 PUF Q4-PRN PRN 11/01 2230 AC 11/04 INH 2107 Albuterol Sulfate 3 ML TID 11/01 2200 AC 11/07 INH 0508 Amlodipine Besylate 10 MG DAILY 11/02 1000 AC 11/06 PO 0939 Atorvastatin Calcium 20 MG 1700 11/02 1700 AC 11/06 PO 1708 Furosemide 20 MG DAILY 11/07 1000 DC PO Furosemide 40 MG DAILY 11/07 1000 AC PO Furosemide 40 MG DAILY 11/03 1345 DC 11/06 PO 0937 Guaifenesin 600 MG Q12 11/04 1533 AC 11/06 PO 2040 Hydrocodone Bitart/ 2 TAB BID PRN 11/03 1302 AC 11/06 Acetaminophen PO 2040 Ipratropium [place] 2.5 ML TID 11/01 2200 AC 11/07 INH 0508 Melatonin 5 MG AT BEDTIME 11/01 2345 AC 11/06 PO 2040 Methylprednisolone 40 MG Q8 11/04 1400 AC 11/07 IV 0632 Metoprolol Tartrate 25 MG BID 11/05 2200 AC 11/06 PO 2045 Metoprolol Tartrate 75 MG QAM 11/02 1000 AC 11/06 PO 0938 Montelukast Sodium 10 MG AT BEDTIME 11/03 2200 AC 11/06 PO 2040 Omeprazole 40 MG DAILY AC 11/02 0700 AC 11/07 PO 0632 Vital Signs & I&O Last 24 Hrs of Vitals and I&O: Vital Signs Date Time Temp Pulse Resp B/P B/P Pulse O2 O2 Flow FiO2 Mean Ox Delivery Rate 11/07 0653 98.0 88 20 140/74 95 11/07 0525 93 Nasal 2.0L Cannula 11/07 0000 90 Nasal 2.0L Cannula 11/06 2213 98.2 99 20 138/60 90 Nasal Cannula 11/06 2045 90 138/60 11/06 204 90 138/60 11/06 1822 93 Aerosol 35% Mask 11/06 1600 96 Venti Mask 30% 11/06 1414 98.5 69 20 142/80 94 11/06 0939 98 138/70 11/06 0938 98 138/70 Intake & Output 11/07 0800 11/07 0000 11/06 1600 Intake Total 480 370 250 Output Total 535 400 Balance -55 -30 250 Intake, IV 10 Intake, Oral 480 360 250 Output, Urine 535 400 Patient 253 lb 262 lb Weight Weight Bed scale Measurement Method Since saturation 2 L 95% exam of his chest shows occasional rhonchi there are no inspiratory or expiratory wheezing there is still upper airway noise cardiac exam shows normal S1 and S2 with systolic ejection murmur there is no edema Impression/Plan Impression/Plan Impression/Plan: 77-year-old gentleman with asthma presented with increasing cough elevated BNP but no evidence of congestive heart failure on chest x-ray. His bronchospasm appears improved. Recommendations: Decrease diuretic regimen. Taper FiO2 with improved saturations. We'll hope to begin oral prednisone today. If he fails to make significant progress would consider noncontrast CT chest. Follow-up airway cultures
[2017-11-07 08:57] LABS: ABSOLUTE BASOPHIL COUNT 0 /CUMM (0.0-0.2); ABSOLUTE EOSINOPHIL COUNT 0 /CUMM (0.0-0.7); ABSOLUTE LYMPH COUNT 0.3 /CUMM (1.2-3.4); ABSOLUTE MONOCYTE COUNT 0.6 /CUMM (0.10-0.60); BASOPHIL % 0 % (0.0-2.0); EOSINOPHIL % 0 % (0-5)
[2017-11-07 09:13] LABS: ABSOLUTE GRANULOCYTE CT 11.3 /CUMM (1.4-6.5); HEMATOCRIT 43.7 % (42-52); MEAN CORPUSCULAR HGB 32.7 PG (27.0-31.0); MEAN CORPUSCULAR HGB CONC 33.8 G/DL (33.0-37.0); MEAN CORPUSCULAR VOLUME 96.8 FL (80.0-94.0); MEAN PLATELET VOLUME 8.8 FL (7.4-10.4); PLATELET COUNT 176 /CUMM (130-400); PT 48.3 SEC (9.4-12.5); RED BLOOD CELL CT 4.51 /CUMM (4.70-6.10)
[2017-11-07 09:23] LABS: WHITE BLOOD CELL COUNT 12.2 /CUMM (4.8-10.8)
[2017-11-07 09:51] LABS: GRANULOCYTE % 92.5 % (42.2-75.2)
[2017-11-07 14:52] VITALS: BP 140/70
--- NOTE | 2017-11-07 17:12 | CT SCAN REPORT ---
EXAMINATION: CT CHEST WITHOUT CONTRAST CLINICAL INFORMATION: Asthma exacerbation, slow clinical improvement with prednisone. History of CHF. COMPARISON: Chest radiograph done on 11/05/[address] of the chest done on 07/14/2017. TECHNIQUE: Multidetector volumetric CT imaging of the chest was done. Axial MIP volume rendering provided. Sagittal and coronal reformatted images were obtained. DLP: 412.58 mGy-cm FINDINGS: Evaluation is slightly technically limited due to motion-related artifacts. WELDER FITTER: Unremarkable. LUNGS: Previously identified significant patchy airspace disease at both upper lobes and posteromedial aspects of both lower lobes of the lung show interval resolution. Focal somewhat peribronchiolar nodularities noted at superior segment of left lower lobe of the lung. On the prior study, dense airspace consolidation was noted in this region. The findings may represent new versus resolving airspace disease. Followup images to document complete resolution is recommended. The remainder of the lung hopkins otherwise appear clear. The tracheobronchial tree appeared patent. MEDIASTINUM: There is moderate cardiomegaly and significant atherosclerotic disease including coronary arterial calcifications present. Aortic valve replacement is noted, appears unchanged. There is no pathologically enlarged mediastinal and/or hilar lymphadenopathy identified on this nonenhanced study. PLEURA: There is no pleural effusion. No pleural mass or thickening. AXILLA: No lymphadenopathy. UPPER ABDOMEN: No definite focal abnormalities identified on this nonenhanced study. The gallbladder is surgically absent. Extensive atherosclerotic disease is noted within the aorta and its visualized branches. There is no adrenal mass present. OSSEOUS STRUCTURES: 1.6 cm maximum dimension focal area of sclerosis is noted involving L1 vertebral body on the right, increased by 0.2 cm since 2013 and by 0.8 cm since 2007, may represent slow-growing bone island versus less likely metastasis. IMPRESSION: 1. Significant interval resolution of previously documented bilateral predominately upper lobar patchy airspace disease since prior CT of the chest done on 07/14/2017. Subtle nodular peribronchiolar opacities are however identified at superior segment of left lower lobe of the lung, may represent new versus residual airspace disease. Continued followup to document complete resolution is recommended. 2. Persistent stable moderate cardiomegaly and significant atherosclerotic disease including coronary arterial calcifications. 3. Nonspecific 1.6 cm focal area of sclerotic lesion involving L1 vertebral body to the right of the midline, may represent slow-growing bone island versus less likely metastasis.
[2017-11-07 22:09] VITALS: BP 140/70
[2017-11-08 06:00] VITALS: BP 132/76
--- NOTE | 2017-11-08 12:18 | PN- Housestaff ---
Dario Cruz 11/08/17 1218: Subjective Follow-up For: Shortness of breath Complaints: still coughing, feels winded Subjective: Reviewed the patient lying comfortably on the bed watching television is on oxygen at 2 L not in all he has shortness of breath. Patient reports not to have slept very well as he was coughing a lot after his IV Solu-Medrol was withheld. Patient insisting strongly to go back to IV Solu-Medrol. Review of Systems Constitutional: Denies: chills, fever. Cardiovascular: Denies: chest pain, palpitations. Respiratory: Reports: cough, short of breath. Gastrointestinal: Denies: nausea, vomiting. Genitourinary: Denies: no symptoms. Musculoskeletal: Denies: no symptoms. Objective Last 24 Hrs of Vital Signs/I&O Vital Signs Date Time Temp Pulse Resp B/P B/P Pulse O2 O2 Flow FiO2 Mean Ox Delivery Rate 11/08 1048 92 Nasal 2.0L Cannula 11/08 1002 54 130/76 11/08 1001 92 130/76 11/08 0600 98.3 92 20 132/76 96 11/08 0302 93 Nasal 2.0L Cannula 11/08 0000 Nasal 2.0L Cannula 11/07 2243 98.2 74 140/70 11/07 2209 98.1 75 20 140/70 93 Nasal Cannula 11/07 1654 94 Nasal 3.0L Cannula 11/07 1600 95 Nasal 2.0L Cannula 11/07 1452 98.2 74 20 140/70 94 Intake & Output 11/08 1600 11/08 0800 11/08 0000 Intake Total 400 400 Output Total 700 400 500 Balance -700 0 -100 Intake, Oral 400 400 Output, Urine 700 400 500 Patient 262 lb Weight Physical Exam General Appearance: Alert, Oriented X3, Cooperative, No Acute Distress Skin: No Rashes Skin Temp/Moisture Exam: Warm/Dry Sepsis Skin Exam (color): Normal for Ethnicity HEENT: Atraumatic, Mucous Membr. moist/pink Neck: Supple Cardiovascular: Regular Rate, Normal S1, Normal S2 Lungs: bilateral wheezes on upper and lower lobes Abdomen: Normal Bowel Sounds, Soft Neurological: Normal Speech Extremities: mild pitting edema more on left than R lower limb Current Medications: Current Medications Sig/Poppy Start time Last Medication Dose Route Stop Time Status Admin Acetaminophen 650 MG Q6P PRN 11/01 1645 AC PO Acetylcysteine 4 ML BID 11/08 1400 AC INH Albuterol Sulfate 2 PUF Q4-PRN PRN 11/01 2230 AC 11/07 INH 0919 Albuterol Sulfate 3 ML TID 11/01 2200 AC 11/08 INH 1043 Amlodipine Besylate 10 MG DAILY 11/02 1000 AC 11/08 PO 1001 Atorvastatin Calcium 20 MG 1700 11/02 1700 AC 11/07 PO 1748 Furosemide 40 MG DAILY 11/07 1000 AC 11/08 PO 1001 Guaifenesin 600 MG Q12 11/08 2200 AC PO Guaifenesin 10 ML .STK-MED ONE 11/08 0241 DC PO 11/08 0242 Guaifenesin 10 ML Q4P PRN 11/07 1130 AC 11/08 PO 0242 Guaifenesin/ 10 ML .STK-MED ONE 11/07 1622 DC Dextromethorphan PO 11/07 1623 Hydrocodone Bitart/ 2 TAB BID PRN 11/03 1302 AC 11/08 Acetaminophen PO 1017 Ipratropium [place] 2.5 ML TID 11/01 2200 AC 11/08 INH 1042 Melatonin 5 MG AT BEDTIME 11/01 2345 AC 11/07 PO 2243 Methylprednisolone 40 MG Q12 11/08 1130 AC 11/08 IV 1202 Methylprednisolone 40 MG ONCE ONE 11/07 2145 DC 11/07 IV 11/07 2146 2204 Metoprolol Tartrate 25 MG BID 11/05 2200 AC 11/08 PO 1002 Metoprolol Tartrate 75 MG QAM 11/02 1000 AC 11/08 PO 1002 Montelukast Sodium 10 MG AT BEDTIME 11/03 2200 AC 11/07 PO 2243 Omeprazole 40 MG DAILY AC 11/02 0700 AC 11/08 PO 0623 Prednisone 40 MG DAILY 11/08 1000 DC PO 11/10 1001 Assessment/Plan Assessment: This is a 75-year-old male, nonsmoker, nonalcoholic, with past medical history of coronary artery disease, CHF, hypertension, hyperlipidemia, CT, heart failure with preserved ejection fraction, aortic medicine, gout, arthritis and asthma came in with chief complaint of worsening shortness of breath since last 4 days, previously being seen at the ER on October 30 and being discharged on by mouth prednisone and Augmentin return back to the emergency department with worsening shortness of breath, especially on exertion. Patient has been in the [facility] for the past 7 the eyes with only mild improvement in his shortness of breath. Today changed back to IV Solu-Medrol. Asthma exacerbation CXR showed no acute pulmonary findings with cardiomegaly. ECHO showed EF > 60% with mechanical prosthesis aortic valve. Continue TRC nebulization, continue oxygen to maintain saturation greater than 92%, currently under 2LNC. The study patient was switched to oral prednisone but reports that his symptoms worsened and would like to continue to be on IV Solu-Medrol. He started back with Mucomyst nebulization. Hx of Diastolic heart failure: Patient was initially admitted to Telemetry and underwent cardiac workup. ECHO showed EF > 60% with mechanical prosthesis aortic valve, which was similar to his baseline with good LV systolic functions. CXR 11/01 & 11/05 showed stable cardiomegaly however no sign of volume overload from CHF exacerbation. He denies any paroxysmal nocturnal dyspnea or orthopnea, still he has mild pitting edema in the lower limbs. Patient on his home dose of Lasix 40 mg daily. Elevated BUN: without change of Cr, or signs of volume depletion as patient's been eating and drinking all well and making normal urine output. BUN could be from overproduction from steroid therapy. Continue daily BEP monitor. BUN 35 on latest lab. Continue to trend BUN History of aortic aneurysm/aortic valve replacement on Coumadin INR supratherapeutic yesterday 4.67, repeated INR today follow-up value Will hold coumadin today if I am still supratherapeutic. History of hyperlipidemia, coronary artery disease, hypertension Continue atorvastatin, metoprolol 25 mg in the morning and 50 mg in the evening, continue amlodipine. Bone lesion Sclerotic bone lesion which is nonspecific on and 1 to my represent a slow- growing bone island or less likely metastasis. This patient needs to have this lesion followed as outpatient with his primary care physician. Problem List: 1. Asthma exacerbation 2. CAD (coronary artery disease) 3. Dyspnea Pain Ratin Pain Location: none Pain Goal: Remain pain free Pain Plan: When necessary Tylenol Tomorrow's Labs & Rationales: Coags DVT/Prophylaxis: pharmacological Aj Hodges 11/08/17 1727: Attending MD Review Statement Attending Statement Attending MD Statement: examined this patient, discuss w/resident/PA/[employer] HAND[employer]ER, agreed w/resident/PA/[employer] HAND[employer]ER, reviewed EMR data (avail), discussed with nursing Attending Assessment/Plan: Cont with iv solumedrol for now at 40mg q12h. still wheezing on exam. INR and cbc pending for today. Expectorant ordered.
--- NOTE | 2017-11-08 12:23 | PN- Pulmonary ---
Subjective HPI/Critical Care Issues: Patient seen and examined this morning. He is slow to recover however overall feeling slightly better. His major issue is shortness of breath upon minimal exertion so a relentless cough that is productive. Objective Current Medications: Current Medications Sig/Poppy Start time Last Medication Dose Route Stop Time Status Admin Acetaminophen 650 MG Q6P PRN 11/01 1645 AC PO Albuterol Sulfate 2 PUF Q4-PRN PRN 11/01 2230 AC 11/07 INH 0919 Albuterol Sulfate 3 ML TID 11/01 2200 AC 11/08 INH 1043 Amlodipine Besylate 10 MG DAILY 11/02 1000 AC 11/08 PO 1001 Atorvastatin Calcium 20 MG 1700 11/02 1700 AC 11/07 PO 1748 Furosemide 40 MG DAILY 11/07 1000 AC 11/08 PO 1001 Guaifenesin 600 MG Q12 11/08 2200 AC PO Guaifenesin 10 ML .STK-MED ONE 11/08 0241 DC PO 11/08 0242 Guaifenesin 10 ML Q4P PRN 11/07 1130 AC 11/08 PO 0242 Guaifenesin/ 10 ML .STK-MED ONE 11/07 1622 DC Dextromethorphan PO 11/07 1623 Hydrocodone Bitart/ 2 TAB BID PRN 11/03 1302 AC 11/08 Acetaminophen PO 1017 Ipratropium [place] 2.5 ML TID 11/01 2200 AC 11/08 INH 1042 Melatonin 5 MG AT BEDTIME 11/01 2345 AC 11/07 PO 2243 Methylprednisolone 40 MG Q12 11/08 1130 AC 11/08 IV 1202 Methylprednisolone 40 MG ONCE ONE 11/07 2145 DC 11/07 IV 11/07 2146 2204 Metoprolol Tartrate 25 MG BID 11/05 2200 AC 11/08 PO 1002 Metoprolol Tartrate 75 MG QAM 11/02 1000 AC 11/08 PO 1002 Montelukast Sodium 10 MG AT BEDTIME 11/03 2200 AC 11/07 PO 2243 Omeprazole 40 MG DAILY AC 11/02 0700 AC 11/08 PO 0623 Prednisone 40 MG DAILY 11/08 1000 DC PO 11/10 1001 Vital Signs & I&O Last 24 Hrs of Vitals and I&O: Vital Signs Date Time Temp Pulse Resp B/P B/P Pulse O2 O2 Flow FiO2 Mean Ox Delivery Rate 11/08 1048 92 Nasal 2.0L Cannula 11/08 1002 54 130/76 11/08 1001 92 130/76 11/08 0600 98.3 92 20 132/76 96 11/08 0302 93 Nasal 2.0L Cannula 11/08 0000 Nasal 2.0L Cannula 11/07 2243 98.2 74 140/70 11/07 2209 98.1 75 20 140/70 93 Nasal Cannula 11/07 1654 94 Nasal 3.0L Cannula 11/07 1600 95 Nasal 2.0L Cannula 11/07 1452 98.2 74 20 140/70 94 11/07 1338 95 Nasal 2.0L Cannula Intake & Output 11/08 1600 11/08 0800 11/08 0000 Intake Total 400 400 Output Total 400 500 Balance 0 -100 Intake, Oral 400 400 Output, Urine 400 500 Patient 262 lb Weight Exam Other Physical Findings: Generally - Awake, alert and comfortable without distress Head and neck - normocephalic, atraumatic, EOMI grossly intact Cardiovascular - S1, S2 Lungs -bilateral wheezing throughout all lung hopkins Abdomen - Bowel sounds positive, soft, non-tender Extremities - without edema Impression/Plan Impression/Plan Impression/Plan: Impression 77-year-old man * Exacerbation of asthma/reactive airways disease possibly due to a respiratory infection such as a viral or bacterial process Plan -Discontinue prednisone -Resume Solu-Medrol 40 mg IV every 12 -Follow up sputum culture -Recommend Mucomyst twice a day nebulized DVT prophylaxis at all times
[2017-11-08 14:17] VITALS: BP 140/72
[2017-11-08 20:50] LABS: ABSOLUTE BASOPHIL COUNT 0 /CUMM (0.0-0.2); ABSOLUTE EOSINOPHIL COUNT 0 /CUMM (0.0-0.7); ABSOLUTE GRANULOCYTE CT 12.7 /CUMM (1.4-6.5); ABSOLUTE LYMPH COUNT 0.2 /CUMM (1.2-3.4); ABSOLUTE MONOCYTE COUNT 0.5 /CUMM (0.10-0.60); BASOPHIL % 0.1 % (0.0-2.0); EOSINOPHIL % 0 % (0-5); HEMATOCRIT 43.9 % (42-52); MEAN CORPUSCULAR HGB 32.5 PG (27.0-31.0); MEAN CORPUSCULAR HGB CONC 33.6 G/DL (33.0-37.0); MEAN CORPUSCULAR VOLUME 96.7 FL (80.0-94.0); MEAN PLATELET VOLUME 8.8 FL (7.4-10.4); PLATELET COUNT 169 /CUMM (130-400); RBC DISTRIBUTION WIDTH 14.1 % (11.5-14.5); RED BLOOD CELL CT 4.54 /CUMM (4.70-6.10); WHITE BLOOD CELL COUNT 13.5 /CUMM (4.8-10.8)
[2017-11-08 21:08] LABS: GRANULOCYTE % 94.2 % (42.2-75.2)
[2017-11-08 22:11] VITALS: BP 124/60
[2017-11-09 06:20] VITALS: BP 152/80
[2017-11-09 08:22] LABS: ABSOLUTE BASOPHIL COUNT 0 /CUMM (0.0-0.2); ABSOLUTE EOSINOPHIL COUNT 0 /CUMM (0.0-0.7); ABSOLUTE GRANULOCYTE CT 10.4 /CUMM (1.4-6.5); ABSOLUTE LYMPH COUNT 0.2 /CUMM (1.2-3.4); ABSOLUTE MONOCYTE COUNT 0.4 /CUMM (0.10-0.60); BASOPHIL % 0 % (0.0-2.0); EOSINOPHIL % 0 % (0-5); GRANULOCYTE % 94.9 % (42.2-75.2); HEMATOCRIT 43.2 % (42-52); MEAN CORPUSCULAR HGB 32.4 PG (27.0-31.0); MEAN CORPUSCULAR HGB CONC 33.4 G/DL (33.0-37.0); MEAN CORPUSCULAR VOLUME 97.1 FL (80.0-94.0); PLATELET COUNT 160 /CUMM (130-400); RED BLOOD CELL CT 4.44 /CUMM (4.70-6.10); WHITE BLOOD CELL COUNT 10.9 /CUMM (4.8-10.8)
[2017-11-09 08:30] LABS: PT 23.5 SEC (9.4-12.5)
--- NOTE | 2017-11-09 12:29 | PN- Pulmonary ---
Subjective HPI/Critical Care Issues: Patient seen and examined this morning. He appears to be doing better with the increase of Solu-Medrol overall he is improving but slowly. Objective Current Medications: Current Medications Sig/Poppy Start time Last Medication Dose Route Stop Time Status Admin Acetaminophen 650 MG Q6P PRN 11/01 1645 AC PO Acetylcysteine 4 ML BID 11/08 1400 DC INH Acetylcysteine 2 ML BID 11/08 1400 AC 11/09 INH 0956 Albuterol Sulfate 3 ML EVERY 4 HRS/AWAKE 11/08 1600 AC 11/09 INH 0955 Albuterol Sulfate 2 PUF Q4-PRN PRN 11/01 2230 AC 11/07 INH 0919 Albuterol Sulfate 3 ML TID 11/01 2200 DC 11/08 INH 1043 Amlodipine Besylate 10 MG DAILY 11/02 1000 AC 11/09 PO 1036 Atorvastatin Calcium 20 MG 1700 11/02 1700 AC 11/08 PO 1839 Furosemide 40 MG DAILY 11/07 1000 AC 11/09 PO 1036 Guaifenesin 600 MG Q12 11/08 2200 AC 11/09 PO 1036 Guaifenesin 10 ML .STK-MED ONE 11/08 2020 DC PO 11/08 2021 Guaifenesin 600 MG ONCE ONE 11/08 1445 DC 11/08 PO 11/08 1446 1550 Guaifenesin 10 ML Q4P PRN 11/07 1130 AC 11/08 PO 2021 Hydrocodone Bitart/ 2 TAB BID PRN 11/03 1302 AC 11/09 Acetaminophen PO 1037 Ipratropium [place] 2.5 ML EVERY 4 HRS/AWAKE 11/08 1600 AC 11/09 INH 1010 Ipratropium [place] 2.5 ML TID 11/01 2200 DC 11/08 INH 1042 Melatonin 5 MG AT BEDTIME 11/01 2345 AC 11/08 PO 2141 Methylprednisolone 40 MG Q12 11/08 1130 AC 11/09 IV 1036 Metoprolol Tartrate 25 MG BID 11/05 2200 AC 11/09 PO 1036 Metoprolol Tartrate 75 MG QAM 11/02 1000 AC 11/09 PO 1036 Montelukast Sodium 10 MG AT BEDTIME 11/03 2200 AC 11/08 PO 2142 Omeprazole 40 MG DAILY AC 11/02 0700 AC 11/09 PO 0523 Vital Signs & I&O Last 24 Hrs of Vitals and I&O: Vital Signs Date Time Temp Pulse Resp B/P B/P Pulse O2 O2 Flow FiO2 Mean Ox Delivery Rate 11/09 1036 67 152/80 11/09 1036 67 152/80 11/09 1008 93 Nasal 2.0L Cannula 11/09 0620 98.4 67 20 152/80 91 Nasal Cannula 11/09 0218 Nasal 2.0L Cannula 11/09 0000 Nasal 2.0L Cannula 11/08 2211 98.0 70 20 124/60 91 11/08 2141 98.3 70 18 140/72 11/08 1605 92 Nasal 2.0L Cannula 11/08 1417 98.3 70 18 140/72 95 Nasal Cannula Intake & Output 11/09 1600 11/09 0800 11/09 0000 Intake Total 200 300 Output Total 500 500 Balance -300 -200 Intake, Oral 200 300 Output, Urine 500 500 Patient 263 lb Weight Weight Bed scale Measurement Method Exam Other Physical Findings: Generally - Awake, alert and comfortable without distress Head and neck - normocephalic, atraumatic, EOMI grossly intact Cardiovascular - S1, S2 Lungs -bilateral wheezing throughout all lung hopkins Abdomen - Bowel sounds positive, soft, non-tender Extremities - without edema Results Last 24 Hrs of Lab Results: Laboratory Tests 11/09/17 0645: Anion Gap 7, Estimated GFR > 60, BUN/Creatinine Ratio 38.6 H, PT 23.5 H, INR 2.26 H, CBC w Diff NO MAN DIFF REQ, RBC 4.44 L, MCV 97.1 H, MCH 32.4 H, MCHC 33.4, RDW 14.0, MPV 9.0, Gran % 94.9 H, Lymphocytes % 1.8 L, Monocytes % 3.3, Eosinophils % 0, Basophils % 0, Absolute Granulocytes 10.4 H, Absolute Lymphocytes 0.2 L, Absolute Monocytes 0.4, Absolute Eosinophils 0, Absolute Basophils 0 11/08/17 2016: PT 32.0 H, INR 3.08 H, CBC w Diff NO MAN DIFF REQ, RBC 4.54 L, MCV 96.7 H, MCH 32.5 H, MCHC 33.6, RDW 14.1, MPV 8.8, Gran % 94.2 H, Lymphocytes % 1.8 L, Monocytes % 3.9, Eosinophils % 0, Basophils % 0.1, Absolute Granulocytes 12.7 H , Absolute Lymphocytes 0.2 L, Absolute Monocytes 0.5, Absolute Eosinophils 0, Absolute Basophils 0 Impression/Plan Impression/Plan Impression/Plan: Impression 77-year-old man * Exacerbation of asthma/reactive airways disease possibly due to a respiratory infection such as a viral or bacterial process Plan -Remain on Solu-Medrol 40 mg IV every 12 -Follow up sputum culture shows MRSA, recommend ID input for evaluation of colonization vs infection -Recommend Mucomyst twice a day nebulized DVT prophylaxis at all times
[2017-11-09 14:47] VITALS: BP 120/60
--- NOTE | 2017-11-09 14:58 | Cons- Infect Disease ---
General Information and HPI Consulting Request Date of Consult: 11/09/17 Requested By: Candido Rouse MD Reason for Consult: abx advice Source of Information: patient, primary team Exam Limitations: clinical condition History of Present Illness: 77-year-old male with history of coronary artery disease, CHF, hypertension, hyperlipidemia, previous [place], hypertension with preserved ejection fraction, aortic aneurysm, gout, arthritis, and presented to the emergency department on with worsening shortness. On 10/30 he was seen in ED for asthma exacerbation (outpatient regimen included prednisone taper and oral Augmentin). However his shortness of breath continued to worsen with minimal physical activity. CXR showed no acute pulmonary findings with cardiomegaly. ECHO showed EF > 60% with mechanical prosthetic aortic valve. Non-contrast CT of the chest was performed. Sputum cx obtained and culture positive MRSA. For abx advice ID consult called. Of note patient afebrile during the hospital stay (while on steroids). Allergies/Medications Allergies: Coded Allergies: No Known Allergies (11/01/17) Home Med List: Albuterol Sulfate (Proair Hfa) 90 MCG HFA.AER.AD 2 PUF INH Q4-6 PRN PRN ASTHMA (Reported) Albuterol Sulfate 2.5 MG/3 ML (0.083 %) VIAL.NEB 1 Vial INH/TORI Q4P PRN SHORTNESS OF BREATH (Reported) Amlodipine Besylate 10 MG TABLET 1 TAB PO DAILY BP (Reported) Budesonide/Formoterol Fumarate (Symbicort 160-4.5 Mcg Inhaler) 160 MCG-4.5 MCG/ ACTUATION HFA.AER.AD 2 PUF INH BID COPD (Reported) Furosemide 40 MG TABLET 1 TAB PO DAILY SHORTNESS OF BREATH . Hydrocodone/Acetaminophen (Vicodin 5-300 MG Tablet) 5 MG-300 MG TABLET 1 TAB PO AD PRN PAIN (Reported) Ipratropium/Albuterol Sulfate (Iprat-Albut 0.5-3(2.5) MG/3 Ml) 0.5 MG-3 MG (2.5 MG BASE)/3 ML AMPUL.NEB 1 VIAL INH Q6HR PRN WHEEZING Lactobacillus Acidophilus (Probiotic) (Unknown Strength) CAPSULE (Unknown Dose ) PO DAILY PROBIOTIC (Reported) Metoprolol Tartrate 50 MG TABLET 1 TAB PO BID HEART (Reported) Multiple Vitamin (Multivitamins) 1 EACH TABLET 1 TAB PO DAILY SUPPLEMENT ( Reported) Omeprazole Magnesium (Prilosec Otc) 20 MG TABLET.DR 1 TAB PO DAILY GI ( Reported) Prednisone 10 MG TABLET 0 PO DAILY asthma 5 tabs po day 1 4 tabs po day 2 3 tabs po day 3 2 tabs po day 4 1 tab po day 5 and 6 Rosuvastatin Calcium (Crestor) 5 MG TABLET 1 TAB PO DAILY CHOLESTEROL ( Reported) Tramadol HCl 50 MG TABLET 1 TAB PO Q6P PRN PAIN (Reported) Warfarin Sodium (Coumadin) (Unknown Strength) TABLET 4.5 MG PO DAILY BLOOD THINNER (Reported) Current Medications: Current Medications Sig/Poppy Start time Last Medication Dose Route Stop Time Status Admin Acetaminophen 650 MG Q6P PRN 11/01 1645 AC PO Acetylcysteine 2 ML BID 11/08 1400 AC 11/09 INH 0956 Albuterol Sulfate 3 ML EVERY 4 HRS/AWAKE 11/08 1600 AC 11/09 INH 1347 Albuterol Sulfate 2 PUF Q4-PRN PRN 11/01 2230 AC 11/07 INH 0919 Albuterol Sulfate 3 ML TID 11/01 2200 NE 11/08 INH 1043 Amlodipine Besylate 10 MG DAILY 11/02 1000 AC 11/09 PO 1036 Atorvastatin Calcium 20 MG 1700 11/02 1700 AC 11/08 PO 1839 Furosemide 40 MG DAILY 11/07 1000 AC 11/09 PO 1036 Guaifenesin 600 MG Q12 11/08 2200 AC 11/09 PO 1036 Guaifenesin 10 ML .STK-MED ONE 11/08 2020 DC PO 11/08 202 Guaifenesin 600 MG ONCE ONE 11/08 1445 DC 11/08 PO 11/08 1446 1550 Guaifenesin 10 ML Q4P PRN 11/07 1130 AC 11/08 PO 2021 Hydrocodone Bitart/ 2 TAB BID PRN 11/03 1302 AC 11/09 Acetaminophen PO 1037 Ipratropium [place] 2.5 ML EVERY 4 HRS/AWAKE 11/08 1600 AC 11/09 INH 1347 Ipratropium [place] 2.5 ML TID 11/01 2200 DC 11/08 INH 1042 Melatonin 5 MG AT BEDTIME 11/01 2345 AC 11/08 PO 2141 Methylprednisolone 40 MG Q12 11/08 1130 11/09 IV 1036 Metoprolol Tartrate 25 MG BID 11/05 2200 AC 11/09 PO 1036 Metoprolol Tartrate 75 MG QAM 11/02 1000 AC 11/09 PO 1036 Montelukast Sodium 10 MG AT BEDTIME 11/03 2199 AC 11/08 PO 2142 Omeprazole 40 MG DAILY AC 11/02 0700 AC 11/09 PO 0523 Warfarin Sodium 5 MG COUMADIN 1700 ONE 11/09 1700 AC PO 11/09 1701 Past History Travel History Traveled to [place] past 21 day No Medical History Blood Transfusion Hx: Yes Neurological: status post nerve damage right arm/hand/fingers EENT: NONE Cardiovascular: CAD, CHF, hypertension, hyperlipidemia, myocardial infarction, AORTIC ANEURSYM Respiratory: asthma Gastrointestinal: GERD Hepatic: NONE Renal: benign prost hyperplasia Musculoskeletal: gout, septic arthritis (left ankle 2000) Psychiatric: NONE Endocrine: NONE Blood Disorders: NONE Cancer(s): NONE HAIR SPINNER/Reproductive: NONE History of MRSA: Yes History of VRE: No History of CDIFF: No Isolation History: Contact Surgical History Surgical History: CABG, cholecystectomy, status post aortic valve replacement 2013 status post repair of an aortic aneurysm 2013 status post excision of the second metatarsal head of the right foot Family History Relations & Conditions If Any: FATHER FH: pancreatic cancer Psychosocial History Where Do You Live? Home Who Do You Live With? spouse Services at Home: None Smoking Status: Never Smoked ETOH Use: occasional use Illicit Drug Use: denies illicit drug use Functional Ability ADLs Independent: dressing, eating, toileting, bathing. Ambulation: independent IADLs Independent: shopping, housework, finances, food prep, telephone, transportation , medication admin. ECHO Results (as available) EF% 55 Review of Systems Comments 12 points reviewed as noted, otherwise negative. Exam & Diagnostic Data Last 24 Hrs of Vital Signs/I&O Vital Signs Date Time Temp Pulse Resp B/P B/P Pulse O2 O2 Flow FiO2 Mean Ox Delivery Rate 11/09 1036 67 152/80 11/09 1036 67 152/80 11/09 1008 93 Nasal 2.0L Cannula 11/09 0620 98.4 67 20 152/80 91 Nasal Cannula 11/09 0218 Nasal 2.0L Cannula 11/09 0000 Nasal 2.0L Cannula 11/08 2210 98.0 70 20 124/60 91 11/08 2140 98.3 70 18 140/72 11/08 1605 92 Nasal 2.0L Cannula Intake & Output 11/09 1600 11/09 0800 11/09 0000 Intake Total 200 300 Output Total 500 500 Balance -300 -200 Intake, Oral 200 300 Output, Urine 500 500 Patient 263 lb Weight Weight Bed scale Measurement Method Physical Exam Other Physical Findings: General Appearance Alert, Oriented X3, Cooperative, No Acute Distress Skin No Rash HEENT Atraumatic, PERRLA, EOMI Neck Supple, No JVD Cardiovascular Normal S1, Normal S2, 1/6 MALOU Lungs BS diminished bases, poor inspiratory effort, scattered rhonchi and soft exp wheezes Abdomen Normal Bowel Sounds, Soft, No Tenderness Neurological Strength at 5/5 X4 Ext, Normal Tone, Sensation Intact Extremities edema 2+, normal pulses, stasis dermatitis changes LE's Vascular Normal Pulses, Pulses Symmetrical Last 24 Hours of Lab Results: Laboratory Tests 11/09 Chemistry Sodium (137 - 145 mmol/L) 137 Potassium (3.5 - 5.1 mmol/L) 4.5 Chloride (98 - 107 mmol/L) 99 Carbon Dioxide (22 - 30 mmol/L) 30 Anion Gap (5 - 16) 7 BUN (9 - 20 mg/dL) 27 H Creatinine (0.7 - 1.2 mg/dL) 0.7 Estimated GFR (>60 ml/min) > 60 BUN/Creatinine Ratio (7 - 25 %) 38.6 H Coagulation PT (9.4 - 12.5 SEC) 23.5 H 32.0 H INR (0.90 - 1.17) 2.26 H 3.08 H Hematology CBC w Diff NO MAN DIFF REQ NO MAN DIFF REQ WBC (4.8 - 10.8 /CUMM) 10.9 H 13.5 H RBC (4.70 - 6.10 /CUMM) 4.44 L 4.54 L Hgb (14.0 - 18.0 G/DL) 14.4 14.8 Hct (42 - 52 %) 43.2 43.9 MCV (80.0 - 94.0 FL) 97.1 H 96.7 H MCH (27.0 - 31.0 PG) 32.4 H 32.5 H MCHC (33.0 - 37.0 G/DL) 33.4 33.6 RDW (11.5 - 14.5 %) 14.0 14.1 Plt Count (130 - 400 /CUMM) 160 169 MPV (7.4 - 10.4 FL) 9.0 8.8 Gran % (42.2 - 75.2 %) 94.9 H 94.2 H Lymphocytes % (20.5 - 51.1 %) 1.8 L 1.8 L Monocytes % (1.7 - 9.3 %) 3.3 3.9 Eosinophils % (0 - 5 %) 0 0 Basophils % (0.0 - 2.0 %) 0 0.1 Absolute Granulocytes (1.4 - 6.5 /CUMM) 10.4 H 12.7 H Absolute Lymphocytes (1.2 - 3.4 /CUMM) 0.2 L 0.2 L Absolute Monocytes (0.10 - 0.60 /CUMM) 0.4 0.5 Absolute Eosinophils (0.0 - 0.7 /CUMM) 0 0 Absolute Basophils (0.0 - 0.2 /CUMM) 0 0 Last 24 Hours of Mamadou Results: SPEC #: [id number] VINITA: 11/07/17-UNK STATUS: COMP RECD: 11/07/17-[address]: Adam FERNANDEZ,Domo SOURCE: LOWER RESP ENTR: 11/07/17-[address]: Nasim FERNANDEZ,Candido SPDESC: SPUTUM Yo FERNANDEZ, Vandana ORDERED: LOWER RESPIRATO Procedure Result > GRAM STAIN Final 11/07/17-1604 WHITE BLOOD CELLS MANY SQUAMOUS CELLS RARE GRAM POSITIVE COCCI MANY PAIRS AND CLUSTERS GRAM NEGATIVE RODS FEW GRAM POSITIVE RODS FEW > LOWER RESPIRATORY CULTURE Final 11/09/17-1110 Mixed annabel after 2 dayS WITH: Moderate growth of: METH RESIST STAPH AUREUS Called to/Readback by JYOTII by HAMILTON 11/09/17 1109 1. METH RESIST STAPH AUREUS RX ABN ------ --- 1. METH RESIST STAPH AUREUS RX AB ------ -- CEFAZOLIN R AMOXICILLIN/CLAVULINIC ACID R AMPICILLIN/SULBACTAM R GENTAMICIN S MOXIFLOXACIN S TETRACYCLINE R TRIMETHOPRIM/SULFAMETHOXAZOLE S AZITHROMYCIN R CLINDAMYCIN R ERYTHROMYCIN R LINEZOLID S OXACILLIN R VANCOMYCIN S ATTENTIONATTENTIONPLACE PATIENT ON CONTACT PRECAUTIONS Diagnostic Data Recent Imaging Findings: SERVICE DATE: 11/07/17- EXAM TYPE: CAT - CT CHEST WO IV CONTRAST EXAMINATION: CT CHEST WITHOUT CONTRAST CLINICAL INFORMATION: Asthma exacerbation, slow clinical improvement with prednisone. History of CHF. COMPARISON: Chest radiograph done on 11/05/[address] of the chest done on 07/14/2017. TECHNIQUE: Multidetector volumetric CT imaging of the chest was done. Axial MIP volume rendering provided. Sagittal and coronal reformatted images were obtained. DLP: 412.58 mGy-cm FINDINGS: Evaluation is slightly technically limited due to motion-related artifacts. DISTRIBUTION SUPERVISOR: Unremarkable. LUNGS: Previously identified significant patchy airspace disease at both upper lobes and posteromedial aspects of both lower lobes of the lung show interval resolution. Focal somewhat peribronchiolar nodularities noted at superior segment of left lower lobe of the lung. On the prior study, dense airspace consolidation was noted in this region. The findings may represent new versus resolving airspace disease. Followup images to document complete resolution is recommended. The remainder of the lung hopkins otherwise appear clear. The tracheobronchial tree appeared patent. MEDIASTINUM: There is moderate cardiomegaly and significant atherosclerotic disease including coronary arterial calcifications present. Aortic valve replacement is noted, appears unchanged. There is no pathologically enlarged mediastinal and/or hilar lymphadenopathy identified on this nonenhanced study. PLEURA: There is no pleural effusion. No pleural mass or thickening. AXILLA: No lymphadenopathy. UPPER ABDOMEN: No definite focal abnormalities identified on this nonenhanced study. The gallbladder is surgically absent. Extensive atherosclerotic disease is noted within the aorta and its visualized branches. There is no adrenal mass present. OSSEOUS STRUCTURES: 1.6 cm maximum dimension focal area of sclerosis is noted involving L1 vertebral body on the right, increased by 0.2 cm since 2013 and by 0.8 cm since 2007, may represent slow-growing bone island versus less likely metastasis. IMPRESSION: 1. Significant interval resolution of previously documented bilateral predominately upper lobar patchy airspace disease since prior CT of the chest done on 07/14/2017. Subtle nodular peribronchiolar opacities are however identified at superior segment of left lower lobe of the lung, may represent new versus residual airspace disease. Continued followup to document complete resolution is recommended. 2. Persistent stable moderate cardiomegaly and significant atherosclerotic disease including coronary arterial calcifications. 3. Nonspecific 1.6 cm focal area of sclerotic lesion involving L1 vertebral body to the right of the midline, may represent slow-growing bone island versus less likely metastasis. DICTATED BY: Cash Garrison MD DATE/TIME DICTATED:11/07/171642 RECORDS MANAGEMENT SPECIALIST:DENZEL DATE/TIME TRANSCRIBED:11/07/171642 CONFIDENTIAL, DO NOT COPY WITHOUT APPROPRIATE AUTHORIZATION. <Electronically signed in Other Vendor System> SIGNED BY: Cash Garrison MD 11/07/17 026 Assessment/Plan Assessment/Plan Impression: 77-year-old male with history of coronary artery disease s/p CABG, s/p AVR, venous insufficiency with chronic venous stasis changes to the left leg and with chronic lower extremity edema, CHF, hypertension, hyperlipidemia, previous [place], hypertension with preserved ejection fraction, aortic aneurysm, gout, arthritis admitted on 11/01 for asthma exacerbation. Persistent productive cough; sputum culture w/ moderate growth MRSA; CT chest revealing possibly new LLL infiltrate. Mild leukocytosis (steroids/?lung infection) Suggestion: 1. Trend CBC, BMP. Obtain procalcitonin level in am (if level low possibly MRSA colonization vs active infection). 2. Start vancomycin 1.25 gm iv q 12 h. 3. Vanco trough 11/11 30 min before the due dose. 4. Call if fever. Consult Acknowledgment - Thank you for your consult request.
--- NOTE | 2017-11-09 16:07 | PN- Gen Med ---
Assessment/Plan Medical Assessment: 75-year-old male, nonsmoker, nonalcoholic, with past medical history of coronary artery disease, CHF, hypertension, hyperlipidemia, CO, heart failure with preserved ejection fraction, aortic medicine, gout, arthritis and asthma came in with chief complaint of worsening shortness of breath since last 4 days, previously being seen at the ER on October 30 and being discharged on by mouth prednisone and Augmentin return back to the emergency department with worsening shortness of breath, especially on exertion. Pt has been in hosp since 11/01 and is being treated for asthma exacerbation. His sputum culture grew MRSA , so I d/w ID the case today and reviewed CT scan finding with Dr Diaz and it was decided to start him on iv vancomycin. MRSA pneumonia- seen by iD- started on iv vancomycin. will f/u with their recommendations. Will get vanco level. Asthma exacerbation- pt will be cont on iv solumedrol. d/w pulmonary. pt still has wheezing b/l on exam . cont on current dose. Cont on mucomyst nebs as per pulm. Mechanical AVR on coumadin- INR is therapeutic today at 2.26, will give 5mg coumadin tonight. Given that he is being started on abx. will have to be careful with dosing . Problem List: 1. MRSA pneumonia 2. Asthma exacerbation 3. Hx of mechanical aortic valve replacement Subjective Review of Systems Constitutional: Denies: chills, fever. EENTM: Denies: eye pain. Cardiovascular: Denies: chest pain, palpitations. Respiratory: Reports: cough, short of breath, sputum production. Gastrointestinal: Denies: diarrhea. Genitourinary: Denies: dysuria. Neurological/Psychological: Denies: confusion. Objective Last 24 Hrs of Vital Signs/I&O Vital Signs Date Time Temp Pulse Resp B/P B/P Pulse O2 O2 Flow FiO2 Mean Ox Delivery Rate 11/09 1447 98.3 82 24 120/60 92 11/09 1036 67 152/80 11/09 1036 67 152/80 11/09 1008 93 Nasal 2.0L Cannula 11/09 0800 95 Nasal 2.0L Cannula 11/09 0620 98.4 67 20 152/80 91 Nasal Cannula 11/09 0218 Nasal 2.0L Cannula 11/09 0000 Nasal 2.0L Cannula 11/08 2211 98.0 70 20 124/60 91 11/08 2141 98.3 70 18 140/72 Intake & Output 11/09 1600 11/09 0800 11/09 0000 Intake Total 200 300 Output Total 500 500 Balance -300 -200 Intake, Oral 200 300 Number 1 Bowel Movements Output, Urine 500 500 Patient 119.323 kg Weight Weight Bed scale Measurement Method Physical Exam General Appearance: Alert, Oriented X3, Cooperative Skin: No Rashes HEENT: Atraumatic, EOMI Cardiovascular: Regular Rate, Normal S1, Normal S2 Lungs: Wheezing b/l Abdomen: Normal Bowel Sounds, Soft, No Tenderness Neurological: Normal Speech, Cranial Nerves 3-12 NL Current Medications: Current Medications Sig/Poppy Start time Last Medication Dose Route Stop Time Status Admin Acetaminophen 650 MG Q6P PRN 11/01 1645 AC PO Acetylcysteine 2 ML BID 11/08 1400 AC 11/09 INH 0956 Albuterol Sulfate 3 ML EVERY 4 HRS/AWAKE 11/08 1600 AC 11/09 INH 1347 Albuterol Sulfate 2 PUF Q4-PRN PRN 11/01 2230 AC 11/07 INH 0919 Amlodipine Besylate 10 MG DAILY 11/02 1000 AC 11/09 PO 1036 Atorvastatin Calcium 20 MG 1700 11/02 1700 AC 11/08 PO 1839 Furosemide 40 MG DAILY 11/07 1000 AC 11/09 PO 1036 Guaifenesin 600 MG Q12 11/08 2200 AC 11/09 PO 1036 Guaifenesin 10 ML .STK-MED ONE 11/08 2020 DC PO 11/08 202 Guaifenesin 10 ML Q4P PRN 11/07 1130 AC 11/08 PO 2021 Hydrocodone Bitart/ 2 TAB BID PRN 11/03 1302 AC 11/09 Acetaminophen PO 1037 Ipratropium [place] 2.5 ML EVERY 4 HRS/AWAKE 11/08 1600 AC 11/09 INH 1347 Melatonin 5 MG AT BEDTIME 11/01 2345 AC 11/08 PO 2141 Methylprednisolone 40 MG Q12 11/08 1130 AC 11/09 IV 1036 Metoprolol Tartrate 25 MG BID 11/05 2200 AC 11/09 PO 1036 Metoprolol Tartrate 75 MG QAM 11/02 1000 AC 11/09 PO 1036 Montelukast Sodium 10 MG AT BEDTIME 11/03 2200 AC 11/08 PO 2142 Omeprazole 40 MG DAILY AC 11/02 0700 AC 11/09 PO 0523 Vancomycin HCl 1,250 MG Q12 11/09 2200 CAN IV Vancomycin HCl 1,250 MG Q12 11/09 2200 AC Sodium Chloride 250 ML IV Warfarin Sodium 5 MG COUMADIN 1700 ONE 11/09 1700 AC PO 11/09 1701 Last 24 Hrs of Labs/Mics: Laboratory Tests 11/09/17 0645: Anion Gap 7, Estimated GFR > 60, BUN/Creatinine Ratio 38.6 H, PT 23.5 H, INR 2.26 H, CBC w Diff NO MAN DIFF REQ, RBC 4.44 L, MCV 97.1 H, MCH 32.4 H, MCHC 33.4, RDW 14.0, MPV 9.0, Gran % 94.9 H, Lymphocytes % 1.8 L, Monocytes % 3.3, Eosinophils % 0, Basophils % 0, Absolute Granulocytes 10.4 H, Absolute Lymphocytes 0.2 L, Absolute Monocytes 0.4, Absolute Eosinophils 0, Absolute Basophils 0 11/08/172015: PT 32.0 H, INR 3.08 H, CBC w Diff NO MAN DIFF REQ, RBC 4.54 L, MCV 96.7 H, MCH 32.5 H, MCHC 33.6, RDW 14.1, MPV 8.8, Gran % 94.2 H, Lymphocytes % 1.8 L, Monocytes % 3.9, Eosinophils % 0, Basophils % 0.1, Absolute Granulocytes 12.7 H , Absolute Lymphocytes 0.2 L, Absolute Monocytes 0.5, Absolute Eosinophils 0, Absolute Basophils 0
[2017-11-09 22:16] VITALS: BP 122/60
[2017-11-10 06:20] VITALS: BP 136/78
--- NOTE | 2017-11-10 07:33 | PN- Housestaff ---
ChingDenisse 11/10/17 0733: Subjective Follow-up For: Shortness of breath Subjective: No overnight event. Patient was concerned regarding why his clinical condition was not improving much. Patent reported coughing out brownish-white sputum from time to time, less wheezing compared to admission, however still dyspnea while walking around. Review of Systems Constitutional: Reports: see HPI. Objective Last 24 Hrs of Vital Signs/I&O Vital Signs Date Time Temp Pulse Resp B/P B/P Pulse O2 O2 Flow FiO2 Mean Ox Delivery Rate 11/10 1146 95 Nasal 2.0L Cannula 11/10 0807 98.1 80 20 136/78 11/10 0807 98.1 80 20 136/78 11/10 0620 98.1 80 20 136/78 94 Nasal Cannula 11/10 0145 92 Nasal 2.0L Cannula 11/10 0000 Nasal 2.0L Cannula 11/09 2216 98.3 92 23 122/60 95 Nasal Cannula 11/09 2136 98.3 82 22 120/60 11/09 1740 94 Nasal 2.0L Cannula 11/09 1447 98.3 82 24 120/60 92 Intake & Output 11/10 1600 11/10 0800 11/10 0000 Intake Total 600 300 Output Total Balance 600 300 Intake, IV 300 Intake, Oral 300 300 Patient 119.805 kg Weight Weight Bed scale Measurement Method Physical Exam General Appearance: Alert, Oriented X3, Cooperative, No Acute Distress Cardiovascular: Regular Rate Lungs: Normal Air Movement, mild wheezing b/l Abdomen: Normal Bowel Sounds, Soft, No Tenderness Extremities: No Cyanosis, No Edema, Normal Pulses Current Medications: Current Medications Sig/Poppy Start time Last Medication Dose Route Stop Time Status Admin Acetaminophen 650 MG Q6P PRN 11/01 1645 AC PO Acetylcysteine 2 ML BID 11/08 1400 AC 11/10 INH 1104 Albuterol Sulfate 3 ML EVERY 4 HRS/AWAKE 11/08 1600 AC 11/10 INH 1104 Albuterol Sulfate 2 PUF Q4-PRN PRN 11/01 2230 AC 11/07 INH 0919 Amlodipine Besylate 10 MG DAILY 11/02 1000 AC 11/10 PO 0807 Atorvastatin Calcium 20 MG 1700 11/02 1700 AC 11/09 PO 1627 Furosemide 40 MG DAILY 11/07 1000 AC 11/10 PO 0806 Guaifenesin 10 ML .STK-MED ONE 11/09 2130 DC PO 11/09 2131 Guaifenesin 600 MG Q12 11/08 2200 AC 11/10 PO 0807 Guaifenesin 10 ML Q4P PRN 11/07 1130 AC 11/10 PO 0512 Hydrocodone Bitart/ 2 TAB BID PRN 11/03 1302 AC 11/09 Acetaminophen PO 2137 Ipratropium [place] 2.5 ML EVERY 4 HRS/AWAKE 11/08 1600 AC 11/10 INH 0553 Melatonin 5 MG AT BEDTIME 11/01 2345 AC 11/09 PO 2136 Methylprednisolone 40 MG Q12 11/08 1130 ND 11/10 IV 0806 Metoprolol Tartrate 25 MG BID 11/05 2200 AC 11/10 PO 0807 Metoprolol Tartrate 75 MG QAM 11/02 1000 DC 11/09 PO 1036 Montelukast Sodium 10 MG AT BEDTIME 11/03 2200 AC 11/09 PO 2136 Omeprazole 40 MG DAILY AC 11/02 0700 AC 11/10 PO 0512 Prednisone 40 MG DAILY 11/11 1000 AC PO 11/13 1001 Vancomycin HCl 1,250 MG Q12 11/09 2200 CAN IV Vancomycin HCl 1,250 MG Q12 11/09 2200 AC 11/10 Sodium Chloride 250 ML IV 1019 Vancomycin HCl 1,250 MG Q12 11/09 2200 CAN Dextrose/Water 250 ML IV Warfarin Sodium 5 MG COUMADIN 1700 ONE 11/09 1700 DC 11/09 PO 11/09 1701 1627 Last 24 Hrs of Lab/Mamadou Results Last 24 Hrs of Labs/Mics: Laboratory Tests 11/10/17 0911: Anion Gap 9, Estimated GFR > 60, BUN/Creatinine Ratio 37.1 H, PT 21.1 H, INR 2.02 H, CBC w Diff NO MAN DIFF REQ, RBC 4.53 L, MCV 97.8 H, MCH 32.6 H, MCHC 33.3, RDW 14.1, MPV 8.9, Gran % 95.0 H, Lymphocytes % 2.0 L, Monocytes % 3.0, Eosinophils % 0, Basophils % 0, Absolute Granulocytes 13.1 H, Absolute Lymphocytes 0.3 L, Absolute Monocytes 0.4, Absolute Eosinophils 0, Absolute Basophils 0 Assessment/Plan Assessment: Mr. Avery is a 75-year-old male, nonsmoker, nonalcoholic, with past medical history of coronary artery disease, CHF, hypertension, hyperlipidemia, PA, heart failure with preserved ejection fraction, aortic medicine, gout, arthritis and asthma came in with chief complaint of worsening shortness of breath since last 4 days, previously being seen at the ER on October 30 and being discharged on by mouth prednisone and Augmentin return back to the emergency department with worsening shortness of breath, especially on exertion. #Asthma exacerbation CXR showed no acute pulmonary findings with cardiomegaly. ECHO showed EF > 60% with mechanical prosthesis aortic valve. - Chest CT 11/08: 1. Significant interval resolution of previously documented bilateral predominately upper lobar patchy airspace disease since prior CT of the chest done on 07/14/2017. Subtle nodular peribronchiolar opacities are however identified at superior segment of left lower lobe of the lung, may represent new versus residual airspace disease. Continued followup to document complete resolution is recommended. 2. Persistent stable moderate cardiomegaly and significant atherosclerotic disease including coronary arterial calcifications. 3. Nonspecific 1.6 cm focal area of sclerotic lesion involving L1 vertebral body to the right of the midline, may represent slow-growing bone island versus less likely metastasis. * Continue TRC nebulization, continue oxygen to maintain saturation greater than 92%, currently under 2LNC. Continue mucomyst per Pulm. * Will taper to IV solumedrol 40mg qd and try PO prednisone tomorrow. However, if patient's exacerbation/dyspnea at night again, may give another 40mg IV solumedrol and reassess steroid taper in the AM. * Completed 5-day course of Zithromax. * Cardiology and Pulmonolgy has r/o CHF exacerbation #Hx of Diastolic heart failure: Patient was initially admitted to Telemetry and underwent cardiac workup. ECHO showed EF > 60% with mechanical prosthesis aortic valve, which was similar to his baseline with good LV systolic functions. CXR 11/01 & 11/05 showed stable cardiomegaly however no sign of volume overload from CHF exacerbation - Patient was discontinued on telemetry as his SOB was not likely from CHF exacerbation, but more of asthamtic bronchitis picture. - Patient would like to be maintained on Lasix 40mg qd PO as that had been his home dose. #Elevated BUN: without change of Cr, or signs of volume depletion as patient's been eating and drinking all well and making normal urine output. BUN could be from overproduction from steroid therapy. - Continue daily BEP monitor. BUN 26 on latest lab. #History of aortic aneurysm/aortic valve replacement on Coumadin INR was 3.69 -> 4.67 -> 3.08 -> 2.26 -> 2.02 on latest lab. * Will dose coumadin today * Dose Coumadin per INR daily, target INR 2.5-3.5, home dose 4.5mg Coumadin #History of hyperlipidemia, coronary artery disease, hypertension * Continue atorvastatin, metoprolol 25 mg BID, continue amlodipine. Monitor BP, if HTN, will add an ARB to control. DVT PPX Warfarin + ALPS Heart Healthy Diet Full code Problem List: 1. Hx of mechanical aortic valve replacement 2. Asthma exacerbation 3. MRSA pneumonia Pain Ratin Pain Location: NA Pain Goal: Remain pain free Pain Plan: see AP Tomorrow's Labs & Rationales: CBC/BEP/INR Candido Rouse 11/10/17 1251: Attending MD Review Statement Attending Statement Attending MD Statement: examined this patient, discuss w/resident/PA/NEWBORN HEARING SCREENER, agreed w/resident/PA/NEWBORN HEARING SCREENER, discussed with family, reviewed EMR data (avail), discussed with nursing, discussed with case mgmt, reviewed images, amended to note Attending Assessment/Plan: Patient admitted initially to telemetry monitoring for dypnea at rest possible asthma exacerbation and possible component of CHF with preserved EF. Negative serial cardiac enzymes, cardiology and pulmonary consulted transferred to Gen/ med. Weekend events noted: MRSA sputum+, productive sputum, CT chest with new LLL, Leukocytosis. Started on iv antibiotics vancomycin and received iv steroids. Afebrile. Patient seen/examined bedside. Patient still c/o shortness of breath, b/l wheezing. Humidified Oxygn 2l, pedal edema 1+. Feels little improvement. Patient on PO lasix maintenance dose at home, iv>>PO steroids as per pulm, Bds as per pulm. ECHO with preserved EF, humidified oxygen supplementation. ENT eval for vocal cord dysfunction with dryness noted. Sinus clean. Likely viral larynigits. gi/dvt prophylaxis full code. Plan of care d.wed patient and bedside. Counselling provided.
--- NOTE | 2017-11-10 08:10 | PN- Pulmonary ---
Subjective HPI/Critical Care Issues: Events of the weekend reviewed patient is now on antibiotics for MRSA Objective Current Medications: Current Medications Sig/Poppy Start time Last Medication Dose Route Stop Time Status Admin Acetaminophen 650 MG Q6P PRN 11/01 1645 AC PO Acetylcysteine 2 ML BID 11/08 1400 AC 11/09 INH 2100 Albuterol Sulfate 3 ML EVERY 4 HRS/AWAKE 11/08 1600 AC 11/10 INH 0553 Albuterol Sulfate 2 PUF Q4-PRN PRN 11/01 2230 AC 11/07 INH 0919 Amlodipine Besylate 10 MG DAILY 11/02 1000 AC 11/09 PO 1036 Atorvastatin Calcium 20 MG 1700 11/02 1700 AC 11/09 PO 1627 Furosemide 40 MG DAILY 11/07 1000 AC 11/09 PO 1036 Guaifenesin 10 ML .STK-MED ONE 11/09 2129 DC PO 11/09 213 Guaifenesin 600 MG Q12 11/08 220 AC 11/09 PO 2135 Guaifenesin 10 ML Q4P PRN 11/07 1130 AC 11/10 PO 0512 Hydrocodone Bitart/ 2 TAB BID PRN 11/03 1302 AC 11/09 Acetaminophen PO 2137 Ipratropium [place] 2.5 ML EVERY 4 HRS/AWAKE 11/08 1600 AC 11/10 INH 0553 Melatonin 5 MG AT BEDTIME 11/01 2345 AC 11/09 PO 2136 Methylprednisolone 40 MG Q12 11/08 1130 AC 11/09 IV 2135 Metoprolol Tartrate 25 MG BID 11/05 220 AC 11/09 PO 2136 Metoprolol Tartrate 75 MG QAM 11/02 1000 DC 11/09 PO 1036 Montelukast Sodium 10 MG AT BEDTIME 11/03 2200 AC 11/09 PO 2136 Omeprazole 40 MG DAILY AC 11/02 0700 AC 11/10 PO 0512 Vancomycin HCl 1,250 MG Q12 11/09 2200 CAN IV Vancomycin HCl 1,250 MG Q12 11/09 220 AC 11/09 Sodium Chloride 250 ML IV 2135 Vancomycin HCl 1,250 MG Q12 11/09 2200 CAN Dextrose/Water 250 ML IV Warfarin Sodium 5 MG COUMADIN 1700 ONE 11/09 1700 DC 11/09 PO 11/09 1701 1627 Vital Signs & I&O Last 24 Hrs of Vitals and I&O: Vital Signs Date Time Temp Pulse Resp B/P B/P Pulse O2 O2 Flow FiO2 Mean Ox Delivery Rate 11/10 0620 98.1 80 20 136/78 94 Nasal Cannula 11/10 0145 92 Nasal 2.0L Cannula 11/10 0000 Nasal 2.0L Cannula 11/09 2216 98.3 92 23 122/60 95 Nasal Cannula 11/09 2136 98.3 82 22 120/60 11/09 1740 94 Nasal 2.0L Cannula 11/09 1447 98.3 82 24 120/60 92 11/09 1036 67 152/80 11/09 1036 67 152/80 11/09 1008 93 Nasal 2.0L Cannula Intake & Output 11/10 1600 11/10 0800 11/10 0000 Intake Total 600 300 Output Total Balance 600 300 Intake, IV 300 Intake, Oral 300 300 Patient 264 lb Weight Weight Bed scale Measurement Method Since saturation 2 L 94% exam of his chest shows diminished breath sounds with occasional rhonchi there are no wheezes cardiac exam shows a regular S1 and S2 without murmurs there is increased lower extremity edema Impression/Plan Impression/Plan Impression/Plan: 77-year-old gentleman with asthma coronary disease has had persistent hypoxic respiratory failure and bronchitis now found to have MRSA on vancomycin. Recommendations: With decreased BUNs and increasing edema would continue negative fluid balance continue antibiotics per infectious disease. Aggressive pulmonary toilet. Mobilizeout of bed and physical therapy to maintain mobility Taper FiO2 his saturations allow. DC IV Solu-Medrol begin by mouth prednisone
--- NOTE | 2017-11-10 09:46 | PN- Cardiology ---
Subjective Subjective: The patient is feeling a little bit better but is still short of breath. He is now able to bring up some sputum. He is still wheezing somewhat. He has been started on vancomycin for possible left lower lobe pneumonia. He is now on prednisone from IV Solu-Medrol. He is on amlodipine for blood pressure. His beta blockers have been reduced. His blood pressure is normal. Objective Vital Signs and I&Os As the loudest prosthetic sounds heard. He can almost rhythm without a definite [place] right Vital Signs Date Time Temp Pulse Resp B/P B/P Pulse O2 O2 Flow FiO2 Mean Ox Delivery Rate 11/10 0807 98.1 80 20 136/78 11/10 0807 98.1 80 20 136/78 11/10 0620 98.1 80 20 136 94 Nasal Cannula 11/10 0145 92 Nasal 2.0L Cannula 11/10 0000 Nasal 2.0L Cannula 11/09 2216 98.3 92 23 122/60 95 Nasal Cannula 11/09 2136 98.3 82 22 120/60 11/09 1740 94 Nasal 2.0L Cannula 11/09 1447 98.3 82 24 120/60 92 11/09 1036 67 152/80 11/09 1036 67 152/80 11/09 1008 93 Nasal 2.0L Cannula Intake & Output 11/10 1600 11/10 0800 11/10 0000 11/09 1600 11/09 0800 11/09 0000 Intake Total 600 300 800 200 300 Output Total 500 500 Balance 600 300 800 -300 -200 Intake, IV 300 Intake, Oral 300 300 800 200 300 Number 1 Bowel Movements Output, Urine 500 500 Patient 264 lb 263 lb Weight Weight Bed scale Bed scale Measurement Method Physical Exam: He is mildly short of breath and with productive cough HEENT exam is normal Chest reveals mild wheezing and some rhonchi Heart reveals prominent prosthetic valve sounds and soft systolic murmur Extremities trace edema Current Medications: Current Medications Sig/Poppy Start time Last Medication Dose Route Stop Time Status Admin Acetaminophen 650 MG Q6P PRN 11/01 1645 AC PO Acetylcysteine 2 ML BID 11/08 1400 AC 11/09 INH 2100 Albuterol Sulfate 3 ML EVERY 4 HRS/AWAKE 11/08 1600 AC 11/10 INH 0553 Albuterol Sulfate 2 PUF Q4-PRN PRN 11/01 2230 AC 11/07 INH 0919 Amlodipine Besylate 10 MG DAILY 11/02 1000 AC 11/10 PO 0807 Atorvastatin Calcium 20 MG 1700 11/02 1700 AC 11/09 PO 1627 Furosemide 40 MG DAILY 11/07 1000 AC 11/10 PO 0806 Guaifenesin 10 ML .STK-MED ONE 11/09 2130 DC PO 11/09 2131 Guaifenesin 600 MG Q12 11/08 2200 AC 11/10 PO 0807 Guaifenesin 10 ML Q4P PRN 11/07 1130 AC 11/10 PO 0512 Hydrocodone Bitart/ 2 TAB BID PRN 11/03 1302 AC 11/09 Acetaminophen PO 2137 Ipratropium [place] 2.5 ML EVERY 4 HRS/AWAKE 11/08 1600 AC 11/10 INH 0553 Melatonin 5 MG AT BEDTIME 11/01 2345 AC 11/09 PO 2136 Methylprednisolone 40 MG Q12 11/08 1130 DC 11/10 IV 0806 Metoprolol Tartrate 25 MG BID 11/05 2200 AC 11/10 PO 0807 Metoprolol Tartrate 75 MG QAM 11/02 1000 DC 11/09 PO 1036 Montelukast Sodium 10 MG AT BEDTIME 11/03 2200 AC 11/09 PO 2136 Omeprazole 40 MG DAILY AC 11/02 0700 AC 11/10 PO 0512 Prednisone 40 MG DAILY 11/11 1000 AC PO 11/13 1001 Vancomycin HCl 1,250 MG Q12 11/09 2200 CAN IV Vancomycin HCl 1,250 MG Q12 11/09 2200 AC 11/09 Sodium Chloride 250 ML IV 2135 Vancomycin HCl 1,250 MG Q12 11/09 2200 CAN Dextrose/Water 250 ML IV Warfarin Sodium 5 MG COUMADIN 1700 ONE 11/09 1700 DC 11/09 PO 11/09 1701 1627 Results Last 48 Hrs of Labs/Mics: Laboratory Tests 11/10/17 0911: Sodium Pending, Potassium Pending, Chloride Pending, Carbon Dioxide Pending, Anion Gap Pending, BUN Pending, Creatinine Pending, BUN/Creatinine Ratio Pending , PT Pending, INR Pending, CBC w Diff Pending, WBC Pending, RBC Pending, Hgb Pending, Hct Pending, MCV Pending, MCH Pending, MCHC Pending, RDW Pending, Plt Count Pending, MPV Pending 11/09/17 0645: Anion Gap 7, Estimated GFR > 60, BUN/Creatinine Ratio 38.6 H, PT 23.5 H, INR 2.26 H, CBC w Diff NO MAN DIFF REQ, RBC 4.44 L, MCV 97.1 H, MCH 32.4 H, MCHC 33.4, RDW 14.0, MPV 9.0, Gran % 94.9 H, Lymphocytes % 1.8 L, Monocytes % 3.3, Eosinophils % 0, Basophils % 0, Absolute Granulocytes 10.4 H, Absolute Lymphocytes 0.2 L, Absolute Monocytes 0.4, Absolute Eosinophils 0, Absolute Basophils 0 11/08/172015: PT 32.0 H, INR 3.08 H, CBC w Diff NO MAN DIFF REQ, RBC 4.54 L, MCV 96.7 H, MCH 32.5 H, MCHC 33.6, RDW 14.1, MPV 8.8, Gran % 94.2 H, Lymphocytes % 1.8 L, Monocytes % 3.9, Eosinophils % 0, Basophils % 0.1, Absolute Granulocytes 12.7 H , Absolute Lymphocytes 0.2 L, Absolute Monocytes 0.5, Absolute Eosinophils 0, Absolute Basophils 0 Recent Imaging Studies: PATIENT: CANDIDA VALERO PRESENT AGE: 77 PATIENT ACCOUNT NO: [id number] : 40 LOCATION: [facility] ORDERING PHYSICIAN: Denisse Ching MD SERVICE DATE: 11/07/17- EXAM TYPE: CAT - CT CHEST WO IV CONTRAST EXAMINATION: CT CHEST WITHOUT CONTRAST CLINICAL INFORMATION: Asthma exacerbation, slow clinical improvement with prednisone. History of CHF. COMPARISON: Chest radiograph done on 11/05/[address] of the chest done on 07/14/2017. TECHNIQUE: Multidetector volumetric CT imaging of the chest was done. Axial MIP volume rendering provided. Sagittal and coronal reformatted images were obtained. DLP: 412.58 mGy-cm FINDINGS: Evaluation is slightly technically limited due to motion-related artifacts. MANAGER OPERATIONS RESEARCH: Unremarkable. LUNGS: Previously identified significant patchy airspace disease at both upper lobes and posteromedial aspects of both lower lobes of the lung show interval resolution. Focal somewhat peribronchiolar nodularities noted at superior segment of left lower lobe of the lung. On the prior study, dense airspace consolidation was noted in this region. The findings may represent new versus resolving airspace disease. Followup images to document complete resolution is recommended. The remainder of the lung [place] otherwise appear clear. The tracheobronchial tree appeared patent. MEDIASTINUM: There is moderate cardiomegaly and significant atherosclerotic disease including coronary arterial calcifications present. Aortic valve replacement is noted, appears unchanged. There is no pathologically enlarged mediastinal and/or hilar lymphadenopathy identified on this nonenhanced study. PLEURA: There is no pleural effusion. No pleural mass or thickening. AXILLA: No lymphadenopathy. UPPER ABDOMEN: No definite focal abnormalities identified on this nonenhanced study. The gallbladder is surgically absent. Extensive atherosclerotic disease is noted within the aorta and its visualized branches. There is no adrenal mass present. OSSEOUS STRUCTURES: 1.6 cm maximum dimension focal area of sclerosis is noted involving L1 vertebral body on the right, increased by 0.2 cm since 2013 and by 0.8 cm since 2007, may represent slow-growing bone island versus less likely metastasis. IMPRESSION: 1. Significant interval resolution of previously documented bilateral predominately upper lobar patchy airspace disease since prior CT of the chest done on 07/14/2017. Subtle nodular peribronchiolar opacities are however identified at superior segment of left lower lobe of the lung, may represent new versus residual airspace disease. Continued followup to document complete resolution is recommended. 2. Persistent stable moderate cardiomegaly and significant atherosclerotic disease including coronary arterial calcifications. 3. Nonspecific 1.6 cm focal area of sclerotic lesion involving L1 vertebral body to the right of the midline, may represent slow-growing bone island versus less likely metastasis. DICTATED BY: Cash Garrison MD DATE/TIME DICTATED:11/07/171642 AVIATION OPERATIONS SPECIALIST:DENZEL DATE/TIME TRANSCRIBED:11/07/171642 CONFIDENTIAL, DO NOT COPY WITHOUT APPROPRIATE AUTHORIZATION. <Electronically signed in Other Vendor System> SIGNED BY: Cash Garrison MD 11/07/17 4573 Assessment/Plan Assessment/Plan The patient is slowly improving. His wheezing is less and he is bringing up some sputum. He was just started on antibiotics for questionable left lower lobe pneumonia. His beta araceli was reduced to 25 mg twice daily. His blood pressure is acceptable at this time on amlodipine. I recommend continuing the beta araceli at the same dose. I recommend adding an ARB if his blood pressure goes any higher, but for now I would hold off. I recommend continuing to follow pulmonary recommendations. Continue telemetry? Not applicable
[2017-11-10 10:12] LABS: PT 21.1 SEC (9.4-12.5)
[2017-11-10 10:56] LABS: ABSOLUTE BASOPHIL COUNT 0 /CUMM (0.0-0.2); ABSOLUTE EOSINOPHIL COUNT 0 /CUMM (0.0-0.7); ABSOLUTE GRANULOCYTE CT 13.1 /CUMM (1.4-6.5); ABSOLUTE LYMPH COUNT 0.3 /CUMM (1.2-3.4); ABSOLUTE MONOCYTE COUNT 0.4 /CUMM (0.10-0.60); BASOPHIL % 0 % (0.0-2.0); EOSINOPHIL % 0 % (0-5); HEMATOCRIT 44.3 % (42-52); MEAN CORPUSCULAR HGB 32.6 PG (27.0-31.0); MEAN CORPUSCULAR HGB CONC 33.3 G/DL (33.0-37.0); MEAN CORPUSCULAR VOLUME 97.8 FL (80.0-94.0); MEAN PLATELET VOLUME 8.9 FL (7.4-10.4); PLATELET COUNT 178 /CUMM (130-400); RBC DISTRIBUTION WIDTH 14.1 % (11.5-14.5); RED BLOOD CELL CT 4.53 /CUMM (4.70-6.10); WHITE BLOOD CELL COUNT 13.7 /CUMM (4.8-10.8)
[2017-11-10 14:54] VITALS: BP 150/66
--- NOTE | 2017-11-10 17:40 | PN- Infect Dx ---
Subjective Subjective: No fever; increased cough last evening; not feeling any better. Review of Systems Comments: 12 points reviewed as noted, otherwise negative. Objective Last 24 Hrs of Vital Signs/I&O Vital Signs Date Time Temp Pulse Resp B/P B/P Pulse O2 O2 Flow FiO2 Mean Ox Delivery Rate 11/10 1620 92 Nasal 2.0L Cannula 11/10 1454 98.0 89 20 150/66 92 11/10 1146 95 Nasal 2.0L Cannula 11/10 0807 98.1 80 20 136/78 11/10 0807 98.1 80 20 136/78 11/10 0620 98.1 80 20 136/78 94 Nasal Cannula 11/10 0145 92 Nasal 2.0L Cannula 11/10 0000 Nasal 2.0L Cannula 11/09 2216 98.3 92 23 122/60 95 Nasal Cannula 11/09 2136 98.3 82 22 120/60 11/09 1740 94 Nasal 2.0L Cannula Intake & Output 11/10 1600 11/10 0800 11/10 0000 Intake Total 600 300 Output Total Balance 600 300 Intake, IV 300 Intake, Oral 300 300 Patient 264 lb Weight Weight Bed scale Measurement Method Physical Exam Other Physical Findings: General Appearance Alert, Oriented X3, Cooperative, No Acute Distress Skin No Rash HEENT Atraumatic, PERRLA, EOMI Neck Supple, No JVD Cardiovascular Normal S1, Normal S2, 1/6 MALOU Lungs BS diminished bases, poor inspiratory effort, b/l rhonchi post lung hopkins and soft exp wheezes Abdomen Normal Bowel Sounds, Soft, No Tenderness Neurological Strength at 5/5 X4 Ext, Normal Tone, Sensation Intact Extremities edema 2+, normal pulses, stasis dermatitis changes LE's Vascular Normal Pulses, Pulses Symmetrical Results Last 24 Hours of Lab Results: Laboratory Tests 11/10 11/10 0911 0600 Chemistry Sodium (137 - 145 mmol/L) 134 L Potassium (3.5 - 5.1 mmol/L) 4.6 Chloride (98 - 107 mmol/L) 98 Carbon Dioxide (22 - 30 mmol/L) 28 Anion Gap (5 - 16) 9 BUN (9 - 20 mg/dL) 26 H Creatinine (0.7 - 1.2 mg/dL) 0.7 Estimated GFR (>60 ml/min) > 60 BUN/Creatinine Ratio (7 - 25 %) 37.1 H Coagulation PT (9.4 - 12.5 SEC) 21.1 H INR (0.90 - 1.17) 2.02 H Hematology CBC w Diff NO MAN DIFF REQ WBC (4.8 - 10.8 /CUMM) 13.7 H RBC (4.70 - 6.10 /CUMM) 4.53 L Hgb (14.0 - 18.0 G/DL) 14.8 Hct (42 - 52 %) 44.3 MCV (80.0 - 94.0 FL) 97.8 H MCH (27.0 - 31.0 PG) 32.6 H MCHC (33.0 - 37.0 G/DL) 33.3 RDW (11.5 - 14.5 %) 14.1 Plt Count (130 - 400 /CUMM) 178 MPV (7.4 - 10.4 FL) 8.9 Gran % (42.2 - 75.2 %) 95.0 H Lymphocytes % (20.5 - 51.1 %) 2.0 L Monocytes % (1.7 - 9.3 %) 3.0 Eosinophils % (0 - 5 %) 0 Basophils % (0.0 - 2.0 %) 0 Absolute Granulocytes (1.4 - 6.5 /CUMM) 13.1 H Absolute Lymphocytes (1.2 - 3.4 /CUMM) 0.3 L Absolute Monocytes (0.10 - 0.60 /CUMM) 0.4 Absolute Eosinophils (0.0 - 0.7 /CUMM) 0 Absolute Basophils (0.0 - 0.2 /CUMM) 0 Miscellaneous Ref Lab Test Result Pending Last 24 Hours of Mamadou Results: SPEC #: [id number] VINITA: 11/07/17-UNK STATUS: COMP RECD: 11/07/17-[address]: Adam FERNANDEZ,Domo SOURCE: LOWER RESP ENTR: 11/07/17-[address]: Nasim FERNANDEZ,Candido SPDESC: SPUTUM Yo FERNANDEZ, Vandana ORDERED: LOWER RESPIRATO Procedure Result > GRAM STAIN Final 11/07/17-1604 WHITE BLOOD CELLS MANY SQUAMOUS CELLS RARE GRAM POSITIVE COCCI MANY PAIRS AND CLUSTERS GRAM NEGATIVE RODS FEW GRAM POSITIVE RODS FEW > LOWER RESPIRATORY CULTURE Final 11/09/17-1110 Mixed annabel after 2 dayS WITH: Moderate growth of: METH RESIST STAPH AUREUS Called to/Readback by JYOTII by HAMILTON 11/09/17 1109 1. METH RESIST STAPH AUREUS RX ABN ------ --- 1. METH RESIST STAPH AUREUS RX AB ------ -- CEFAZOLIN R AMOXICILLIN/CLAVULINIC ACID R AMPICILLIN/SULBACTAM R GENTAMICIN S MOXIFLOXACIN S TETRACYCLINE R TRIMETHOPRIM/SULFAMETHOXAZOLE S AZITHROMYCIN R CLINDAMYCIN R ERYTHROMYCIN R LINEZOLID S OXACILLIN R VANCOMYCIN S ATTENTIONATTENTIONPLACE PATIENT ON CONTACT PRECAUTIONS Recent Imaging Studies: CT chest 11/07 IMPRESSION: 1. Significant interval resolution of previously documented bilateral predominately upper lobar patchy airspace disease since prior CT of the chest done on 07/14/2017. Subtle nodular peribronchiolar opacities are however identified at superior segment of left lower lobe of the lung, may represent new versus residual airspace disease. Continued followup to document complete resolution is recommended. 2. Persistent stable moderate cardiomegaly and significant atherosclerotic disease including coronary arterial calcifications. 3. Nonspecific 1.6 cm focal area of sclerotic lesion involving L1 vertebral body to the right of the midline, may represent slow-growing bone island versus less likely metastasis. DICTATED BY: Cash Garrison MD DATE/TIME DICTATED:11/07/171642 Assessment/Plan ID Impression: Impression: 77-year-old male with history of coronary artery disease s/p CABG, s/p AVR, venous insufficiency with chronic venous stasis changes to the left leg and with chronic lower extremity edema, CHF, hypertension, hyperlipidemia, previous VA, hypertension with preserved ejection fraction, aortic aneurysm, gout, arthritis admitted on 11/01 for asthma exacerbation. Persistent productive cough; sputum culture w/ moderate growth MRSA; CT chest revealing possibly new LLL infiltrate. Leukocytosis (steroids/?lung infection) Suggestion: 1. Trend CBC, BMP. Obtain BNP and procalcitonin level in am (if level low likely sputum cx positive for MRSA representing colonization). 2. Continue vancomycin 1.25 gm iv q 12 h D #2. 3. Vanco trough 11/11 30 min before the due dose. 4. Call if fever. 5. F/u pulm recom. Case d/w team.
[2017-11-10 22:07] VITALS: BP 152/64
[2017-11-11 07:00] VITALS: BP 120/60
--- NOTE | 2017-11-11 07:24 | PN- Housestaff ---
Rosalie FERNANDEZ,[facility] 11/11/17 0724: Subjective Follow-up For: Asthma Exacerbation Subjective: Patient was seen and examined at bedside. States he's feeling a little better than when he came in and that his sputum is now thinner and clearer. He feels like the neb treatments do very little improvement. He would like to continue on the IV steroids if he is not being discharged. Review of Systems Constitutional: Reports: no symptoms. Cardiovascular: Denies: chest pain. Respiratory: Reports: cough, short of breath, sputum production, wheezing. Gastrointestinal: Denies: abdominal pain. Objective Last 24 Hrs of Vital Signs/I&O Vital Signs Date Time Temp Pulse Resp B/P B/P Pulse O2 O2 Flow FiO2 Mean Ox Delivery Rate 11/11 0903 97.3 80 20 120/60 11/11 0903 97.3 80 20 120/60 11/11 0700 97.3 80 20 120/60 93 Nasal 2.0L Cannula 11/11 0149 93 Nasal 2.0L Cannula 11/11 0000 94 Nasal 2.0L Cannula 11/10 2207 98.4 87 20 152/64 94 11/10 2030 82 150/66 11/10 1620 92 Nasal 2.0L Cannula 11/10 1600 94 Nasal 2.0L Cannula 11/10 1454 98.0 89 20 150/66 92 11/10 1146 95 Nasal 2.0L Cannula Intake & Output 11/11 1600 11/11 0800 11/11 0000 Intake Total 660 360 Output Total 925 200 Balance -265 160 Intake, IV 300 Intake, Oral 360 360 Output, Urine 925 200 Patient 266 lb Weight Physical Exam General Appearance: Alert, Oriented X3, Cooperative, Mild Distress Skin: No Rashes, No Breakdown Skin Temp/Moisture Exam: Warm/Dry Sepsis Skin Exam (color): Normal for Ethnicity HEENT: Atraumatic Cardiovascular: Normal S1, Normal S2, systolic murmur Lungs: diffuse wheezing throughout Abdomen: Soft, No Tenderness Neurological: Normal Speech Extremities: b/l lower extremity edema Assessment/Plan Assessment: Mr. Avery is a 75-year-old male with past medical history of coronary artery disease, CHF, hypertension, hyperlipidemia, DC, heart failure with preserved ejection fraction, gout, arthritis and asthma who came in with chief complaint of worsening shortness of breath since last 4 days prior to coming to ER. Assesment and Plan: Asthma Exacerbation: * Continue TRC nebulization q4 prn, continue oxygen to maintain saturation greater than 92%, currently at 2LNC. * Was administered IV SoluMedrol 40mg today. Will likely be transitioned to oral Prednisone tomorrow. * Completed 5-day course of Zithromax. * Cardiology and Pulmonolgy has r/o CHF exacerbation MRSA in Sputum: * Was started on IV Vanco 1250mg q12. * Vanc trough was 9.2 today * Will increase it to 1500mg BID. * ID following. Hx of Diastolic heart failure: Patient was initially admitted to Telemetry and underwent cardiac workup. ECHO showed EF > 60% with mechanical prosthesis aortic valve, which was similar to his baseline with good LV systolic functions. CXR 11/01 & 11/05 showed stable cardiomegaly however no sign of volume overload from CHF exacerbation * Patient was discontinued on telemetry as his SOB was likely not from CHF exacerbation, but more due to asthma * Patient would like to be maintained on Lasix 40mg qd PO as that had been his home dose. * Cardiology following. Elevated BUN: * Trending down. 26 yesterday. * Likely due to steroid use. * Continue to trend #History of Aortic Valve Replacement on Coumadin * His INR is subtherapeutic this morning. * Will increase warfarin to 7mg today. * Daily INR with goal 2.5-3.5 History of hyperlipidemia, coronary artery disease, hypertension * Continue atorvastatin, metoprolol 25 mg BID, amlodipine. DVT PPX Warfarin + ALPS Heart Healthy Diet Full code Problem List: 1. Asthma exacerbation Pain Ratin Pain Location: none Pain Goal: Remain pain free Pain Plan: none Tomorrow's Labs & Rationales: CBC, INR, BEP Candido Rouse 11/11/17 1132: Attending MD Review Statement Attending Statement Attending MD Statement: examined this patient, discuss w/resident/PA/SHOE STAINER, agreed w/resident/PA/SHOE STAINER, discussed with family, reviewed EMR data (avail), discussed with nursing, discussed with case mgmt, reviewed images, amended to note Attending Assessment/Plan: Patient admitted initially to telemetry monitoring for dypnea at rest possible asthma exacerbation and possible component of CHF with preserved EF. Negative serial cardiac enzymes, cardiology and pulmonary consulted transferred to Gen/ med. MRSA sputum+, productive sputum with improvement, CT chest with new LLL, Leukocytosis. Continue iv antibiotics vancomycin, remains Afebrile. Patient seen/examined bedside. Patient still c/o shortness of breath, b/l wheezing. Humidified Oxygn 2l, pedal edema 1+. Feels little improvementm though wheezing improved. Patient on PO lasix maintenance dose at home, iv>>PO steroids as per pulm, Bds as per pulm. ECHO with preserved EF, humidified oxygen supplementation. ENT eval for vocal cord dysfunction with dryness noted. Sinus clean. Likely viral larynigits. gi/dvt prophylaxis full code. Plan of care d.wed patient and bedside. Counselling provided.
--- NOTE | 2017-11-11 07:24 | PN- Pulmonary ---
Subjective HPI/Critical Care Issues: Patient continues to have cough and dyspnea on exertion. Objective Current Medications: Current Medications Sig/Poppy Start time Last Medication Dose Route Stop Time Status Admin Acetaminophen 650 MG Q6P PRN 11/01 1645 AC PO Acetylcysteine 2 ML BID 11/08 1400 AC 11/10 INH 2015 Albuterol Sulfate 3 ML EVERY 4 HRS/AWAKE 11/08 1600 AC 11/11 INH 0457 Albuterol Sulfate 2 PUF Q4-PRN PRN 11/01 2230 AC 11/07 INH 0919 Amlodipine Besylate 10 MG DAILY 11/02 1000 AC 11/10 PO 0807 Atorvastatin Calcium 20 MG 1700 11/02 1700 AC 11/10 PO 1922 Furosemide 40 MG DAILY 11/07 1000 AC 11/10 PO 0806 Guaifenesin 10 ML .STK-MED ONE 11/10 2031 DC PO 11/10 203 Guaifenesin 600 MG Q12 11/08 2200 AC 11/10 PO 2030 Guaifenesin 10 ML Q4P PRN 11/07 1130 AC 11/10 PO 203 Hydrocodone Bitart/ 2 TAB BID PRN 11/10 2100 AC Acetaminophen PO Hydrocodone Bitart/ 2 TAB BID PRN 11/03 1302 DC 11/09 Acetaminophen PO 213 Ipratropium Riley 2.5 ML EVERY 4 HRS/AWAKE 11/08 1600 AC 11/11 INH 0457 Melatonin 5 MG AT BEDTIME 11/01 2345 AC 11/10 PO 2027 Methylprednisolone 20 MG ONCE ONE 11/10 2000 DC 11/10 IV 11/10 Methylprednisolone 40 MG Q12 11/08 1130 DC 11/10 IV 0806 Metoprolol Tartrate 25 MG BID 11/05 220 AC 11/10 PO 2030 Metoprolol Tartrate 75 MG QAM 11/02 1000 DC 11/09 PO 103 Montelukast Sodium 10 MG AT BEDTIME 11/03 220 AC 11/10 PO 2028 Omeprazole 40 MG DAILY AC 11/02 0700 AC 11/11 PO 0558 Prednisone 40 MG DAILY 11/11 1000 AC PO 11/13 1001 Vancomycin HCl 1,250 MG Q12 11/09 220 AC 11/10 Sodium Chloride 250 ML IV 202 Warfarin Sodium 4.5 MG COUMADIN 1700 ONE 11/10 1700 DC 11/10 PO 11/10 1701 1921 Vital Signs & I&O Last 24 Hrs of Vitals and I&O: Vital Signs Date Time Temp Pulse Resp B/P B/P Pulse O2 O2 Flow FiO2 Mean Ox Delivery Rate 11/11 0700 97.3 80 20 120/60 93 Nasal 2.0L Cannula 11/11 0149 93 Nasal 2.0L Cannula 11/11 0000 94 Nasal 2.0L Cannula 11/10 2207 98.4 87 20 152/64 94 11/10 2030 82 150/66 11/10 1620 92 Nasal 2.0L Cannula 11/10 1600 94 Nasal 2.0L Cannula 11/10 1454 98.0 89 20 150/66 92 11/10 1146 95 Nasal 2.0L Cannula 11/10 0807 98.1 80 20 136/78 11/10 0807 98.1 80 20 136/78 Intake & Output 11/11 0800 11/11 0000 11/10 1600 Intake Total 660 360 Output Total 925 200 Balance -265 160 Intake, IV 300 Intake, Oral 360 360 Output, Urine 925 200 Patient 266 lb Weight Oxygen saturation 2 L 93% exam of his chest shows occasional rhonchi there are no wheezes cardiac exam shows regular S1 and S2 there is persistent edema Impression/Plan Impression/Plan Impression/Plan: 77-year-old gentleman with a combined cardiopulmonary disease admitted with asthmatic bronchitis found to have sputum positive with MRSA now on vancomycin. He continues to have hypoxic respiratory failure Recommendations: With decreased BUNs and increasing edema would continue negative fluid balance continue antibiotics per infectious disease. Aggressive pulmonary toilet. Mobilizeout of bed and physical therapy to maintain mobility Taper FiO2 his saturations allow. DC IV Solu-Medrol begin by mouth prednisone the patient continues to have significant dyspnea on exertion will likely need short-term rehabilitation
[2017-11-11 08:54] LABS: ABSOLUTE BASOPHIL COUNT 0 /CUMM (0.0-0.2); ABSOLUTE EOSINOPHIL COUNT 0 /CUMM (0.0-0.7); ABSOLUTE GRANULOCYTE CT 12.4 /CUMM (1.4-6.5); ABSOLUTE LYMPH COUNT 0.3 /CUMM (1.2-3.4); ABSOLUTE MONOCYTE COUNT 0.3 /CUMM (0.10-0.60); BASOPHIL % 0.1 % (0.0-2.0); EOSINOPHIL % 0 % (0-5); HEMATOCRIT 43.3 % (42-52); MEAN CORPUSCULAR HGB 32.3 PG (27.0-31.0); MEAN CORPUSCULAR HGB CONC 33.8 G/DL (33.0-37.0); MEAN CORPUSCULAR VOLUME 95.8 FL (80.0-94.0); MEAN PLATELET VOLUME 8.4 FL (7.4-10.4); PLATELET COUNT 181 /CUMM (130-400); RBC DISTRIBUTION WIDTH 13.8 % (11.5-14.5); RED BLOOD CELL CT 4.52 /CUMM (4.70-6.10); WHITE BLOOD CELL COUNT 13.1 /CUMM (4.8-10.8)
[2017-11-11 08:57] LABS: PT 20.8 SEC (9.4-12.5)
--- NOTE | 2017-11-11 09:16 | PN- Cardiology ---
Subjective Subjective: The patient feels a little bit better today. He is able to bring up some sputum which he says is a little faceter. He still gets very out of breath with any exertion. Objective Vital Signs and I&Os For Vital Signs Date Time Temp Pulse Resp B/P B/P Pulse O2 O2 Flow FiO2 Mean Ox Delivery Rate 11/11 09 97.3 80 20 120/60 11/11 0903 97.3 80 20 120/60 11/11 0700 97.3 80 20 120/60 93 Nasal 2.0L Cannula 11/11 0149 93 Nasal 2.0L Cannula 11/11 0000 94 Nasal 2.0L Cannula 11/10 2207 98.4 87 20 152/64 94 11/10 2030 82 150/66 11/10 1620 92 Nasal 2.0L Cannula 11/10 1600 94 Nasal 2.0L Cannula 11/10 1454 98.0 89 20 150/66 92 11/10 1146 95 Nasal 2.0L Cannula Intake & Output 11/11 1600 11/11 0800 11/11 0000 11/10 1600 11/10 0800 11/10 0000 Intake Total 660 360 600 300 Output Total 925 200 Balance -265 160 600 300 Intake, IV 300 300 Intake, Oral 360 360 300 300 Output, Urine 925 200 Patient 266 lb 264 lb Weight Weight Bed scale Measurement Method Physical Exam: He is in no distress on nasal oxygen 2 L. HEENT exam unremarkable Chest mild wheezing, no rhonchi Heart good prosthetic sounds, systolic ejection murmur Extremities unchanged Current Medications: Beta blockers 25 Current Medications Sig/Poppy Start time Last Medication Dose Route Stop Time Status Admin Acetaminophen 650 MG Q6P PRN 11/01 1645 AC PO Acetylcysteine 2 ML BID 11/08 1400 AC 11/11 INH 0853 Albuterol Sulfate 3 ML EVERY 4 HRS/AWAKE 11/08 1600 AC 11/11 INH 0853 Albuterol Sulfate 2 PUF Q4-PRN PRN 11/01 2230 AC 11/07 INH 0919 Amlodipine Besylate 10 MG DAILY 11/02 1000 AC 11/11 PO 0903 Atorvastatin Calcium 20 MG 1700 11/02 1700 AC 11/10 PO 1922 Furosemide 40 MG DAILY 11/07 1000 AC 11/11 PO 0903 Guaifenesin 10 ML .STK-MED ONE 11/10 2031 DC PO 02/26 2033 Guaifenesin 600 MG Q12 11/08 2200 AC 11/11 PO 0903 Guaifenesin 10 ML Q4P PRN 11/07 1130 AC 11/10 PO 2033 Hydrocodone Bitart/ 2 TAB BID PRN 11/10 2100 AC Acetaminophen PO Hydrocodone Bitart/ 2 TAB BID PRN 11/03 1302 DC 11/09 Acetaminophen PO 2137 Ipratropium Glendo 2.5 ML EVERY 4 HRS/AWAKE 11/08 1600 AC 11/11 INH 0457 Melatonin 5 MG AT BEDTIME 11/01 2345 AC 11/10 PO 202 Methylprednisolone 40 MG 0815 11/11 0815 DC 11/11 IV 11/11 0816 0903 Methylprednisolone 20 MG ONCE ONE 11/10 1999 DC 11/10 IV 11/10 Metoprolol Tartrate 25 MG BID 11/05 2200 AC 11/11 PO 0903 Montelukast Sodium 10 MG AT BEDTIME 11/03 2200 AC 11/10 PO 202 Omeprazole 40 MG DAILY AC 11/02 0700 AC 11/11 PO 0558 Prednisone 40 MG DAILY 11/12 1000 AC PO 11/14 1001 Prednisone 40 MG DAILY 11/11 1000 DC PO 11/13 1001 Vancomycin HCl 1,250 MG Q12 11/09 220 AC 11/10 Sodium Chloride 250 ML IV 2025 Warfarin Sodium 4.5 MG COUMADIN 1700 ONE 11/10 1700 DC 11/10 PO 11/10 1701 1921 Results Last 48 Hrs of Labs/Mics: Laboratory Tests 11/11/17 0808: PT 20.8 H, INR 1.99 H, CBC w Diff Pending, WBC Pending, RBC Pending, Hgb Pending, Hct Pending, MCV Pending, MCH Pending, MCHC Pending, RDW Pending, Plt Count Pending, MPV Pending, Gran % Pending, Lymphocytes % Pending, Monocytes % Pending, Eosinophils % Pending, Basophils % Pending, Absolute Granulocytes Pending, Absolute Lymphocytes Pending, Absolute Monocytes Pending, Absolute Eosinophils Pending, Absolute Basophils Pending, Vancomycin Trough Pending 11/10/17 0911: Anion Gap 9, Estimated GFR > 60, BUN/Creatinine Ratio 37.1 H, PT 21.1 H, INR 2.02 H, CBC w Diff NO MAN DIFF REQ, RBC 4.53 L, MCV 97.8 H, MCH 32.6 H, MCHC 33.3, RDW 14.1, MPV 8.9, Gran % 95.0 H, Lymphocytes % 2.0 L, Monocytes % 3.0, Eosinophils % 0, Basophils % 0, Absolute Granulocytes 13.1 H, Absolute Lymphocytes 0.3 L, Absolute Monocytes 0.4, Absolute Eosinophils 0, Absolute Basophils 0 11/10/17 0600: Ref Lab Test Result Pending Assessment/Plan Assessment/Plan The patient is marginally better. His oxygen requirements have decreased. His INR is still running low. He received 4.5 mg Coumadin yesterday. I recommend giving him 7 mg today. He is on 25 mg metoprolol twice daily. I would continue at this dose for now. Continue telemetry? Not applicable
[2017-11-11 10:13] LABS: GRANULOCYTE % 94.7 % (42.2-75.2)
--- NOTE | 2017-11-11 13:31 | Discharge Summary ---
Hospital Course Allergies: Coded Allergies: No Known Allergies (11/01/17) Discharge Instructions Medications at Discharge Discharge Medications: Stop taking the following medications: Prednisone (Prednisone) 10 MG TABLET ORAL DAILY Qty = 16 Continue taking these medications: Albuterol Sulfate (Proair Hfa) 90 MCG HFA.AER.AD 2 Puff Inhale through mouth EVERY 4-6 HOURS NEEDED as needed for ASTHMA Comments: Last Taken: 07/18/17 Time: 115 AM Amlodipine Besylate (Amlodipine Besylate) 10 MG TABLET 1 Tablet ORAL DAILY Comments: Last Taken: 07/21/17 Time: 1013 Rosuvastatin Calcium (Crestor) 5 MG TABLET 1 Tablet ORAL DAILY Comments: Last Taken: 07/20/17 Time: 1033 RECEIVED LIPITOR REPLACEMENT Warfarin Sodium (Coumadin) (Unknown Strength) TABLET 4.5 Milligram ORAL DAILY Comments: Last Taken:07/06/17 Time:1621 RECEIVED 1MG. Budesonide/Formoterol Fumarate (Symbicort 160-4.5 Mcg Inhaler) 160 MCG-4.5 MCG/ ACTUATION HFA.AER.AD 2 Puff Inhale through mouth TWICE DAILY Comments: Last Taken: 07/21/17 Time: 630 AM Metoprolol Tartrate (Metoprolol Tartrate) 50 MG TABLET 1 Tablet ORAL TWICE DAILY Qty = 180 Comments: Last Taken: 07/21/17 Time: 1013 Albuterol Sulfate (Albuterol Sulfate) 2.5 MG/3 ML (0.083 %) VIAL.NEB 1 Vial Inhale Solution EVERY 4 HOURS NEEDED as needed for SHORTNESS OF BREATH Comments: Last Taken: 07/21/17 Time: 1100 Tramadol HCl (Tramadol HCl) 50 MG TABLET 1 Tablet ORAL EVERY SIX HOURS NEEDED as needed for PAIN Qty = 30 Comments: NOT GIVEN IN HOSPITAL Furosemide (Furosemide) 40 MG TABLET 1 Tablet ORAL DAILY Qty = 30 Instructions: . Comments: Last Taken: 07/21/17 Time: 600 AM IV LASIX WAS GIVEN Ipratropium/Albuterol Sulfate (Iprat-Albut 0.5-3(2.5) MG/3 Ml) 0.5 MG-3 MG (2.5 MG BASE)/3 ML AMPUL.NEB 1 VIAL Inhale through mouth Q6HR as needed for WHEEZING Qty = 1 Hydrocodone/Acetaminophen (Vicodin 5-300 MG Tablet) 5 MG-300 MG TABLET 1 Tablet ORAL As Directed as needed for PAIN Qty = 150 Multiple Vitamin (Multivitamins) 1 EACH TABLET 1 Tablet ORAL DAILY Lactobacillus Acidophilus (Probiotic) (Unknown Strength) CAPSULE Unknown Dose ORAL DAILY Omeprazole Magnesium (Prilosec Otc) 20 MG TABLET.DR 1 Tablet ORAL DAILY Start taking the following new medications: Prednisone (Prednisone) 10 MG TABLET 1 Tablet ORAL DAILY Qty = 45 No Refills Instructions: Please take 5 tablets of Prednisone 10mg from 11/17/17 to 11/19/17 Then take 4 tablets of Prednisone 10mg from 11/20/17 to 11/22/17 Then take 3 tablets of Prednisone 10mg from 11/23/17 to 11/25/17 Then take 2 tablets of Prednisone 10mg from 11/26/17 to 11/28/17 Then take 1 tablet of Prednisone 10mg from 11/29/17 to 12/01/17 Comments: Please take 5 tablets of Prednisone 10mg from 11/17/17 to 11/19/17 Then take 4 tablets of Prednisone 10mg from 11/20/17 to 11/22/17 Then take 3 tablets of Prednisone 10mg from 11/23/17 to 11/25/17 Then take 2 tablets of Prednisone 10mg from 11/26/17 to 11/28/17 Then take 1 tablet of Prednisone 10mg from 11/29/17 to 12/01/17 Minocycline HCl (Minocycline HCl) 100 MG CAPSULE 1 Capsule ORAL TWICE DAILY Qty = 14 No Refills
--- NOTE | 2017-11-11 13:55 | PN- Infect Dx ---
Subjective Subjective: Improved cough and SOB. No fever while on steroids. Review of Systems Comments: 12 points reviewed as noted, otherwise negative. Objective Last 24 Hrs of Vital Signs/I&O Vital Signs Date Time Temp Pulse Resp B/P B/P Pulse O2 O2 Flow FiO2 Mean Ox Delivery Rate 11/11 1157 94 Nasal 2.0L Cannula 11/11 1033 Nasal 2.0L Cannula 11/11 1026 Nasal 2.0L Cannula 11/11 0903 97.3 80 20 120/60 11/11 0903 97.3 80 20 120/60 11/11 0700 97.3 80 20 120/60 93 Nasal 2.0L Cannula 11/11 0149 93 Nasal 2.0L Cannula 11/11 0000 94 Nasal 2.0L Cannula 11/10 2207 98.4 87 20 152/64 94 11/10 2030 82 150/66 11/10 1620 92 Nasal 2.0L Cannula 11/10 1600 94 Nasal 2.0L Cannula 11/10 1454 98.0 89 20 150/66 92 Intake & Output 11/11 1600 11/11 0800 11/11 0000 Intake Total 660 360 Output Total 500 925 200 Balance -500 -265 160 Intake, IV 300 Intake, Oral 360 360 Output, Urine 500 925 200 Patient 266 lb Weight Physical Exam Other Physical Findings: General Appearance Alert, Oriented X3, Cooperative, No Acute Distress Skin No Rash HEENT Atraumatic, PERRLA, EOMI Neck Supple, No JVD Cardiovascular Normal S1, Normal S2, 1/6 MALOU Lungs BS diminished bases, improved inspiratory effort, few rhonchi post lung hopkins, no wheezes Abdomen Normal Bowel Sounds, Soft, No Tenderness Neurological Strength at 5/5 X4 Ext, Normal Tone, Sensation Intact Extremities edema 2+, normal pulses, stasis dermatitis changes LE's Vascular Normal Pulses, Pulses Symmetrical Results Last 24 Hours of Lab Results: Laboratory Tests 11/11 11/11 0808 0600 Chemistry Sodium (137 - 145 mmol/L) 135 L Cancelled Potassium (3.5 - 5.1 mmol/L) 4.6 Cancelled Chloride (98 - 107 mmol/L) 99 Cancelled Carbon Dioxide (22 - 30 mmol/L) 29 Cancelled Anion Gap (5 - 16) 7 Cancelled BUN (9 - 20 mg/dL) 26 H Cancelled Creatinine (0.7 - 1.2 mg/dL) 0.7 Cancelled Estimated GFR (>60 ml/min) > 60 BUN/Creatinine Ratio (7 - 25 %) 37.1 H Cancelled Coagulation PT (9.4 - 12.5 SEC) 20.8 H INR (0.90 - 1.17) 1.99 H Hematology CBC w Diff NO MAN DIFF REQ WBC (4.8 - 10.8 /CUMM) 13.1 H RBC (4.70 - 6.10 /CUMM) 4.52 L Hgb (14.0 - 18.0 G/DL) 14.6 Hct (42 - 52 %) 43.3 MCV (80.0 - 94.0 FL) 95.8 H MCH (27.0 - 31.0 PG) 32.3 H MCHC (33.0 - 37.0 G/DL) 33.8 RDW (11.5 - 14.5 %) 13.8 Plt Count (130 - 400 /CUMM) 181 MPV (7.4 - 10.4 FL) 8.4 Gran % (42.2 - 75.2 %) 94.7 H Lymphocytes % (20.5 - 51.1 %) 2.6 L Monocytes % (1.7 - 9.3 %) 2.6 Eosinophils % (0 - 5 %) 0 Basophils % (0.0 - 2.0 %) 0.1 Absolute Granulocytes (1.4 - 6.5 /CUMM) 12.4 H Absolute Lymphocytes (1.2 - 3.4 /CUMM) 0.3 L Absolute Monocytes (0.10 - 0.60 /CUMM) 0.3 Absolute Eosinophils (0.0 - 0.7 /CUMM) 0 Absolute Basophils (0.0 - 0.2 /CUMM) 0 Toxicology Vancomycin Trough (10.0 - 20.0 ug/mL) 9.2 L Last 24 Hours of Mamadou Results: SPEC #: [id number] VINITA: 11/07/17-UNK STATUS: COMP RECD: 11/07/17-[address]: Domo Medina MD SOURCE: LOWER RESP ENTR: 11/07/17-[address]: Candido Rouse MD SPDESC: SPUTUM Yo FERNANDEZ, Vandana ORDERED: LOWER RESPIRATO Procedure Result > GRAM STAIN Final 11/07/17-1604 WHITE BLOOD CELLS MANY SQUAMOUS CELLS RARE GRAM POSITIVE COCCI MANY PAIRS AND CLUSTERS GRAM NEGATIVE RODS FEW GRAM POSITIVE RODS FEW > LOWER RESPIRATORY CULTURE Final 11/09/17-1110 Mixed annabel after 2 dayS WITH: Moderate growth of: METH RESIST STAPH AUREUS Called to/Readback by GARLAND by HAMILTON 11/09/17 1109 1. METH RESIST STAPH AUREUS RX ABN ------ --- 1. METH RESIST STAPH AUREUS RX AB ------ -- CEFAZOLIN R AMOXICILLIN/CLAVULINIC ACID R AMPICILLIN/SULBACTAM R GENTAMICIN S MOXIFLOXACIN S TETRACYCLINE R TRIMETHOPRIM/SULFAMETHOXAZOLE S AZITHROMYCIN R CLINDAMYCIN R ERYTHROMYCIN R LINEZOLID S OXACILLIN R VANCOMYCIN S ATTENTIONATTENTIONPLACE PATIENT ON CONTACT PRECAUTIONS Recent Imaging Studies: reviewed Assessment/Plan ID Impression: 77-year-old male with history of coronary artery disease s/p CABG, s/p AVR, venous insufficiency with chronic venous stasis changes to the left leg and with chronic lower extremity edema, CHF, hypertension, hyperlipidemia, previous MD, hypertension with preserved ejection fraction, aortic aneurysm, gout, arthritis admitted on 11/01 for asthma exacerbation; protracted hospital course with persistent cough/SOB. Persistent productive cough; sputum culture w/ moderate growth MRSA; CT chest revealing possibly new LLL infiltrate. Mild leukocytosis (steroids/?lung infection) Suggestion: 1. Trend CBC, BMP. Obtain BNP and procalcitonin level in am (if level low likely sputum cx positive for MRSA representing colonization). 2. Continue vancomycin 1.5 gm iv q 12 h D #3; vancomycin trough subtherapeutic today (~9); goal trough 15-20. 3. Vanco trough 3/ 30 min before the due dose. 4. Call if fever. 5. F/u pulm recom.
[2017-11-11 15:14] VITALS: BP 110/65
[2017-11-11 22:18] VITALS: BP 140/70
[2017-11-12 07:01] VITALS: BP 124/78
--- NOTE | 2017-11-12 08:13 | PN- Pulmonary ---
Subjective HPI/Critical Care Issues: Feels improved and was able to ambulate with the assistance of physical therapy still requiring supplemental oxygen Objective Current Medications: Current Medications Sig/Poppy Start time Last Medication Dose Route Stop Time Status Admin Acetaminophen 650 MG Q6P PRN 11/01 1645 AC PO Acetylcysteine 2 ML BID 11/08 1400 AC 11/11 INH 2209 Albuterol Sulfate 3 ML EVERY 4 HRS/AWAKE 11/08 1600 AC 11/12 INH 0345 Albuterol Sulfate 2 PUF Q4-PRN PRN 11/01 2230 AC 11/07 INH 0919 Amlodipine Besylate 10 MG DAILY 11/02 1000 AC 11/11 PO 0903 Atorvastatin Calcium 20 MG 1700 11/02 1700 AC 11/11 PO 1811 Budesonide/ 2 PUF BID 11/11 1006 DC 11/11 Formoterol Fumarate INH 1326 Furosemide 40 MG DAILY 11/07 1000 AC 11/11 PO 0903 Guaifenesin 600 MG Q12 11/08 2200 AC 11/11 PO 2104 Guaifenesin 10 ML Q4P PRN 11/07 1130 AC 11/10 PO 2033 Hydrocodone Bitart/ 2 TAB BID PRN 11/10 2100 AC Acetaminophen PO Ipratropium [place] 2.5 ML EVERY 4 HRS/AWAKE 11/08 1600 AC 11/12 INH 0345 Melatonin 5 MG AT BEDTIME 11/01 2345 AC 11/11 PO 2105 Methylprednisolone 20 MG ONCE ONE 11/11 2014 DC 11/11 IV 11/11 Methylprednisolone 40 MG 0815 11/11 0815 DC 11/11 IV 11/11 0816 0903 Metoprolol Tartrate 25 MG BID 11/05 2200 AC 11/11 PO 2105 Montelukast Sodium 10 MG AT BEDTIME 11/03 2200 AC 11/11 PO 2105 Omeprazole 40 MG DAILY AC 11/02 0700 AC 11/12 PO 0607 Prednisone 40 MG DAILY 11/12 1000 AC PO 11/14 1001 Vancomycin HCl 1,500 MG BID 11/11 1108 CAN IV Vancomycin HCl 1,500 MG BID 11/11 1108 AC 11/11 Sodium Chloride 250 ML IV 210 Vancomycin HCl 1,250 MG Q12 11/09 2200 DC 11/10 Sodium Chloride 250 ML IV 202 Warfarin Sodium 7 MG COUMADIN 1700 11/11 1700 DC 11/11 PO 11/11 2359 1812 Vital Signs & I&O Last 24 Hrs of Vitals and I&O: Vital Signs Date Time Temp Pulse Resp B/P B/P Pulse O2 O2 Flow FiO2 Mean Ox Delivery Rate 11/12 0701 97.9 76 20 124/78 93 Nasal 2.0L Cannula 11/12 0400 94 Nasal 2.0L Cannula 11/12 0000 Nasal 2.0L Cannula 11/11 2218 97.5 76 18 140/70 93 Nasal 2.0L Cannula 11/11 2105 97.5 76 140/70 11/11 1735 93 Nasal 2.0L Cannula 11/11 1600 Nasal 2.0L Cannula 11/11 1514 97.5 75 20 110/65 94 Nasal Cannula 11/11 1157 94 Nasal 2.0L Cannula 11/11 1033 Nasal 2.0L Cannula 11/11 1026 Nasal 2.0L Cannula 11/11 0903 97.3 80 20 120/60 11/11 0903 97.3 80 20 120/60 Intake & Output 11/12 1600 11/12 0800 11/12 0000 Intake Total 300 500 Output Total 475 550 Balance -175 -50 Intake, IV 300 Intake, Oral 300 200 Output, Urine 475 550 Since saturation 2 L 9394% exam of his chest shows rare rhonchi there are no wheezes cardiac exam shows regular S1 and S2 without murmurs Impression/Plan Impression/Plan Impression/Plan: 77-year-old with asthma admitted with MRSA respiratory infection and hypoxic history failure which is slowly improving. Recommendations: With increased mobility will hopefully be able to discharge home with supplemental oxygen on Friday. Patient is insistent that while here to continue receiving steroids intravenously. Can resume IV Solu-Medrol 40 mg daily. Complete course of antibiotics per infectious disease and will need oral conversion for anticipated discharge Friday. A per FiO2 his saturations allow
[2017-11-12 08:20] LABS: ABSOLUTE BASOPHIL COUNT 0 /CUMM (0.0-0.2); ABSOLUTE EOSINOPHIL COUNT 0 /CUMM (0.0-0.7); ABSOLUTE GRANULOCYTE CT 14.2 /CUMM (1.4-6.5); ABSOLUTE LYMPH COUNT 0.3 /CUMM (1.2-3.4); ABSOLUTE MONOCYTE COUNT 0.5 /CUMM (0.10-0.60); BASOPHIL % 0 % (0.0-2.0); EOSINOPHIL % 0 % (0-5); GRANULOCYTE % 94.5 % (42.2-75.2); HEMATOCRIT 42.2 % (42-52); MEAN CORPUSCULAR HGB 32.6 PG (27.0-31.0); MEAN CORPUSCULAR HGB CONC 33.7 G/DL (33.0-37.0); MEAN CORPUSCULAR VOLUME 96.6 FL (80.0-94.0); MEAN PLATELET VOLUME 8.4 FL (7.4-10.4); PLATELET COUNT 171 /CUMM (130-400); RBC DISTRIBUTION WIDTH 13.9 % (11.5-14.5); RED BLOOD CELL CT 4.37 /CUMM (4.70-6.10); WHITE BLOOD CELL COUNT 15.1 /CUMM (4.8-10.8)
--- NOTE | 2017-11-12 09:33 | PN- Housestaff ---
Rosalie FERNANDEZ,[facility] 11/12/17 0933: Subjective Follow-up For: Asthma Exacerbation Subjective: Patient was seen and examined at bedside. He states that his breathing has improved significantly since yesterday. he would like to continue on the IV steroids for now until it is time for him to be discharged. At that time, he is willing to switch to PO prednisone Review of Systems Constitutional: Reports: no symptoms. Cardiovascular: Denies: chest pain. Respiratory: Reports: short of breath, wheezing. Objective Last 24 Hrs of Vital Signs/I&O Vital Signs Date Time Temp Pulse Resp B/P B/P Pulse O2 O2 Flow FiO2 Mean Ox Delivery Rate 11/12 1023 97.9 76 20 124/78 11/12 1023 97.9 76 20 124/78 11/12 0906 96 Nasal 2.0L Cannula 11/12 0701 97.9 76 20 124/78 93 Nasal 2.0L Cannula 11/12 0400 94 Nasal 2.0L Cannula 11/12 0000 Nasal 2.0L Cannula 11/11 2218 97.5 76 18 140/70 93 Nasal 2.0L Cannula 11/11 2105 97.5 76 140/70 11/11 1735 93 Nasal 2.0L Cannula 11/11 1600 Nasal 2.0L Cannula 11/11 1514 97.5 75 20 110/65 94 Nasal Cannula Intake & Output 11/12 1600 11/12 0800 11/12 0000 Intake Total 300 500 Output Total 475 550 Balance -175 -50 Intake, IV 300 Intake, Oral 300 200 Output, Urine 475 550 Physical Exam General Appearance: Alert, Oriented X3, Cooperative, Mild Distress Skin: No Rashes, No Breakdown Skin Temp/Moisture Exam: Warm/Dry Sepsis Skin Exam (color): Normal for Ethnicity HEENT: Atraumatic Cardiovascular: Normal S1, Normal S2, No Murmurs Lungs: mild expiratory wheezing Abdomen: Soft, No Tenderness Neurological: Normal Speech Extremities: b/l lower extremity edema Assessment/Plan Assessment: Mr. Avery is a 75-year-old male with past medical history of coronary artery disease, CHF, hypertension, hyperlipidemia, [place], heart failure with preserved ejection fraction, gout, arthritis and asthma who came in with chief complaint of worsening shortness of breath since last 4 days prior to coming to ER. Assesment and Plan: Asthma Exacerbation: * Continue TRC nebulization q4 prn, continue oxygen to maintain saturation greater than 92%, currently stays at 2L NC. * Continue SoluMedrol 30mg during day and 20mg at night. He will switched to PO Prednisone on discharge. * Completed 5-day course of Zithromax. * Cardiology and Pulmonolgy has r/o CHF exacerbation MRSA in Sputum: * Continue Vancomycin 1500mg BID daily. * Vanc trough tomorrow. * ID following. Hx of Diastolic heart failure: Patient was initially admitted to Telemetry and underwent cardiac workup. ECHO showed EF > 60% with mechanical prosthesis aortic valve, which was similar to his baseline with good LV systolic functions. CXR 11/01 & 11/05 showed stable cardiomegaly however no sign of volume overload from CHF exacerbation * Patient was discontinued on telemetry as his SOB was likely not from CHF exacerbation, but more due to asthma * Patient would like to be maintained on Lasix 40mg qd PO as that had been his home dose. * Cardiology following. * His proBNP has decreased significantly since admission. Elevated BUN: * Trending down. 22 today * Likely due to steroid use. * Continue to trend #History of Aortic Valve Replacement on Coumadin * Will dose warfarin to 4.5mg today. * Daily INR with goal 2.5-3.5 History of hyperlipidemia, coronary artery disease, hypertension * Continue atorvastatin, metoprolol 25 mg BID, amlodipine. DVT PPX Warfarin + ALPS Heart Healthy Diet Full code Problem List: 1. Asthma exacerbation Pain Ratin Pain Location: none Pain Goal: Remain pain free Pain Plan: none Tomorrow's Labs & Rationales: CBC, BEP, INR Candido Rouse 11/12/17 1205: Attending MD Review Statement Attending Statement Attending MD Statement: examined this patient, discuss w/resident/PA/AERODYNAMICS ENGINEER, agreed w/resident/PA/AERODYNAMICS ENGINEER, discussed with family, reviewed EMR data (avail), discussed with nursing, discussed with case mgmt, reviewed images, amended to note Attending Assessment/Plan: Patient admitted initially to telemetry monitoring for dypnea at rest possible asthma exacerbation and possible component of CHF with preserved EF. Negative serial cardiac enzymes, cardiology and pulmonary consulted transferred to Gen/ med. MRSA sputum+, productive sputum with improvement, CT chest with new LLL, Leukocytosis. Continue iv antibiotics vancomycin, remains Afebrile. Patient seen/examined bedside. Patient still c/o shortness of breath, b/l wheezing. Humidified Oxygn 2l, pedal edema 1+. Feels little improvementm though wheezing improved. Patient on PO lasix maintenance dose at home, iv>>PO steroids as per pulm, Bds as per pulm. ECHO with preserved EF, humidified oxygen supplementation. ENT eval for vocal cord dysfunction with dryness noted. Sinus clean. Likely viral larynigits. gi/dvt prophylaxis full code. Plan of care d.wed patient and bedside. Counselling provided. Anti anxiety meds given.
--- NOTE | 2017-11-12 12:56 | PN- Infect Dx ---
Subjective Subjective: No fever. Improved cough. Able to walk with decreased SOB. Review of Systems Comments: 12 points reviewed as noted, otherwise negative Objective Last 24 Hrs of Vital Signs/I&O Vital Signs Date Time Temp Pulse Resp B/P B/P Pulse O2 O2 Flow FiO2 Mean Ox Delivery Rate 11/12 1023 97.9 76 20 124/78 11/12 1023 97.9 76 20 124/78 11/12 0906 96 Nasal 2.0L Cannula 11/12 0701 97.9 76 20 124/78 93 Nasal 2.0L Cannula 11/12 0400 94 Nasal 2.0L Cannula 11/12 0000 Nasal 2.0L Cannula 11/11 2218 97.5 76 18 140/70 93 Nasal 2.0L Cannula 11/11 2105 97.5 76 140/70 11/11 1735 93 Nasal 2.0L Cannula 11/11 1600 Nasal 2.0L Cannula 11/11 1514 97.5 75 20 110/65 94 Nasal Cannula Intake & Output 11/12 1600 11/12 0800 11/12 0000 Intake Total 300 500 Output Total 475 550 Balance -175 -50 Intake, IV 300 Intake, Oral 300 200 Output, Urine 475 550 Physical Exam Other Physical Findings: General Appearance Alert, Oriented X3, Cooperative, No Acute Distress Skin No Rash HEENT Atraumatic, PERRLA, EOMI Neck Supple, No JVD Cardiovascular Normal S1, Normal S2, 1/6 MALOU Lungs BS diminished bases, improved inspiratory effort, few rhonchi post lung hopkins, no wheezes Abdomen Normal Bowel Sounds, Soft, No Tenderness Neurological Alert and oriented x3, CN 2-12 wnl Extremities edema 2+, normal pulses, stasis dermatitis changes LE's Vascular Normal Pulses, Pulses Symmetrical Results Last 24 Hours of Lab Results: Laboratory Tests 11/12 0740 Chemistry Sodium (137 - 145 mmol/L) 135 L Potassium (3.5 - 5.1 mmol/L) 4.3 Chloride (98 - 107 mmol/L) 100 Carbon Dioxide (22 - 30 mmol/L) 26 Anion Gap (5 - 16) 9 BUN (9 - 20 mg/dL) 22 H Creatinine (0.7 - 1.2 mg/dL) 0.6 L Estimated GFR (>60 ml/min) > 60 BUN/Creatinine Ratio (7 - 25 %) 36.7 H Coagulation PT (9.4 - 12.5 SEC) 26.0 H INR (0.90 - 1.17) 2.50 H Hematology CBC w Diff NO MAN DIFF REQ WBC (4.8 - 10.8 /CUMM) 15.1 H RBC (4.70 - 6.10 /CUMM) 4.37 L Hgb (14.0 - 18.0 G/DL) 14.2 Hct (42 - 52 %) 42.2 MCV (80.0 - 94.0 FL) 96.6 H MCH (27.0 - 31.0 PG) 32.6 H MCHC (33.0 - 37.0 G/DL) 33.7 RDW (11.5 - 14.5 %) 13.9 Plt Count (130 - 400 /CUMM) 171 MPV (7.4 - 10.4 FL) 8.4 Gran % (42.2 - 75.2 %) 94.5 H Lymphocytes % (20.5 - 51.1 %) 2.1 L Monocytes % (1.7 - 9.3 %) 3.4 Eosinophils % (0 - 5 %) 0 Basophils % (0.0 - 2.0 %) 0 Absolute Granulocytes (1.4 - 6.5 /CUMM) 14.2 H Absolute Lymphocytes (1.2 - 3.4 /CUMM) 0.3 L Absolute Monocytes (0.10 - 0.60 /CUMM) 0.5 Absolute Eosinophils (0.0 - 0.7 /CUMM) 0 Absolute Basophils (0.0 - 0.2 /CUMM) 0 Last 24 Hours of Mamadou Results: SPEC #: [id number] VINITA: 11/07/17-UNK STATUS: COMP RECD: 11/07/17-[address]: Adam FERNANDEZ,Domo SOURCE: LOWER RESP ENTR: 11/07/17-[address]: Nasim FERNANDEZ,Candido SPDESC: SPUTUM Yo FERNANDEZ, Vandana ORDERED: LOWER RESPIRATO Procedure Result > GRAM STAIN Final 11/07/17-1604 WHITE BLOOD CELLS MANY SQUAMOUS CELLS RARE GRAM POSITIVE COCCI MANY PAIRS AND CLUSTERS GRAM NEGATIVE RODS FEW GRAM POSITIVE RODS FEW > LOWER RESPIRATORY CULTURE Final 11/09/17-1110 Mixed annabel after 2 dayS WITH: Moderate growth of: METH RESIST STAPH AUREUS Called to/Readback by [email or web address] by LAB.[email or web address] 11/09/17 110 1. METH RESIST STAPH AUREUS Procedure Result > GRAM STAIN Final 11/07/17-1604 WHITE BLOOD CELLS MANY SQUAMOUS CELLS RARE GRAM POSITIVE COCCI MANY PAIRS AND CLUSTERS GRAM NEGATIVE RODS FEW GRAM POSITIVE RODS FEW > LOWER RESPIRATORY CULTURE Final 11/09/17-1110 Mixed annabel after 2 dayS WITH: Moderate growth of: METH RESIST STAPH AUREUS Called to/Readback by [email or web address] by LAB.ZOHREH 11/09/17 110 1. METH RESIST STAPH AUREUS Recent Imaging Studies: reviewed Assessment/Plan ID Impression: 77-year-old male with history of coronary artery disease s/p CABG, s/p AVR, venous insufficiency with chronic venous stasis changes to the left leg and with chronic lower extremity edema, CHF, hypertension, hyperlipidemia, previous [place], hypertension with preserved ejection fraction, aortic aneurysm, gout, arthritis admitted on 11/01 for asthma exacerbation; protracted hospital course with persistent cough/SOB, clinically improving for the past 2 days Persistent productive cough; sputum culture w/ moderate growth MRSA; CT chest revealing possibly new LLL infiltrate. Reactive leukocytosis (steroids) Suggestion: 1. Trend CBC, BMP. F/U procalcitonin level from 11/10 (pnd) (if level low likely sputum cx positive for MRSA representing colonization). 2. Continue vancomycin 1.5 gm iv q 12 h D #4; vancomycin trough subtherapeutic today (~9); goal trough 15-20. 3. Vanco trough 11/13 30 min before the due dose.
[2017-11-12 14:56] VITALS: BP 138/76
[2017-11-12 22:28] VITALS: BP 150/60
[2017-11-13 06:46] VITALS: BP 136/72
--- NOTE | 2017-11-13 07:13 | PN- Housestaff ---
Rosalie FERNANDEZ,[facility] 11/13/17 0712: Subjective Follow-up For: Asthma Exacerbation Subjective: Patient was seen and examined at bedside. He reports feeling much better today. His oxygen is down to 1L. He moved around and worked with the physical therapist yesterday. He wants to continue on the IV steroids. Review of Systems Constitutional: Reports: no symptoms. Respiratory: Reports: short of breath. Objective Last 24 Hrs of Vital Signs/I&O Vital Signs Date Time Temp Pulse Resp B/P B/P Pulse O2 O2 Flow FiO2 Mean Ox Delivery Rate 11/13 0646 97.5 64 22 136/72 93 Nasal 1.0L Cannula 11/13 0347 92 Nasal 1.0L Cannula 11/13 0000 Nasal 1.0L Cannula 11/12 2228 98.0 87 24 150/60 92 Nasal 1.0L Cannula 11/12 2018 81 150/60 11/12 1625 95 Nasal 2.0L Cannula 11/12 1600 94 Nasal 2.0L Cannula 11/12 1456 97.7 86 18 138/76 95 11/12 1023 97.9 76 20 124/78 11/12 1023 97.9 76 20 124/78 Intake & Output 11/13 1600 11/13 0800 11/13 0000 Intake Total 300 730 Output Total 1000 450 Balance -700 280 Intake, IV 250 Intake, Oral 300 480 Output, Urine 1000 450 Patient 267 lb Weight Weight Bed scale Measurement Method Physical Exam General Appearance: Alert, Oriented X3, Cooperative, Mild Distress Skin: No Rashes, No Breakdown Skin Temp/Moisture Exam: Warm/Dry Sepsis Skin Exam (color): Normal for Ethnicity HEENT: Atraumatic Cardiovascular: Normal S1, Normal S2, No Murmurs Lungs: Clear to Auscultation, Normal Air Movement, mild expiratory wheeze Abdomen: Soft, No Tenderness Neurological: Normal Speech Extremities: LLE edema Assessment/Plan Assessment: Mr. Avery is a 75-year-old male with past medical history of coronary artery disease, CHF, hypertension, hyperlipidemia, [place], heart failure with preserved ejection fraction, gout, arthritis and asthma who came in with chief complaint of worsening shortness of breath since last 4 days prior to coming to ER. Assesment and Plan: Asthma Exacerbation: * Continue TRC nebulization q4 prn, continue oxygen to maintain saturation greater than 92%, currently on 1L NC. * Continue SoluMedrol 30mg during day and 20mg at night. He will switched to PO Prednisone on discharge. * Completed 5-day course of Zithromax. * Cardiology and Pulmonolgy has r/o CHF exacerbation MRSA in Sputum: * Continue Vancomycin 1500mg BID daily. * Vanc trough today - pending. * ID following. Hx of Diastolic heart failure: Patient was initially admitted to Telemetry and underwent cardiac workup. ECHO showed EF > 60% with mechanical prosthesis aortic valve, which was similar to his baseline with good LV systolic functions. CXR 11/01 & 11/05 showed stable cardiomegaly however no sign of volume overload from CHF exacerbation * Patient was discontinued on telemetry as his SOB was likely not from CHF exacerbation, but more due to asthma * Patient would like to be maintained on Lasix 40mg qd PO as that had been his home dose. * Cardiology following. * His proBNP has decreased significantly since admission. * Repeat CXR today - pending. Elevated BUN: * Slightly trended up to 26 today. * Likely due to steroid use. * Continue to trend #History of Aortic Valve Replacement on Coumadin * Will continue home dose warfarin to 4.5mg today. * Daily INR with goal 2.5-3.5 History of hyperlipidemia, coronary artery disease, hypertension * Continue atorvastatin, metoprolol 25 mg BID, amlodipine. DVT PPX Warfarin + ALPS Heart Healthy Diet Full code Problem List: 1. Asthma exacerbation Pain Ratin Pain Location: none Pain Goal: Remain pain free Pain Plan: none Tomorrow's Labs & Rationales: CANDIS RouseAdalidkaitlynn 11/13/17 1131: Attending MD Review Statement Attending Statement Attending MD Statement: examined this patient, discuss w/resident/PA/VP CLIENT SERVICES, agreed w/resident/PA/VP CLIENT SERVICES, discussed with family, reviewed EMR data (avail), discussed with nursing, discussed with case mgmt, reviewed images, amended to note Attending Assessment/Plan: Patient seen/examined bedside. Patient denies any new complaints. He is still on oxygen supplementation with humidifier. Patient is on iv vancomycin for possible MRSA penumonia. Patient is clinically feeling better. ID and pulmonary on board. Steroid uase as per pulmoanry. He is working with PT. cont current care.. anticipate dc planning as clinical condition improves and if ok with pulmonary. Arrange for home oxygen.
[2017-11-13 08:21] LABS: PT 29.4 SEC (9.4-12.5)
--- NOTE | 2017-11-13 08:38 | PN- Pulmonary ---
Subjective HPI/Critical Care Issues: Patient continues to improve ambulating with reduced shortness of breath she requirements are improved Objective Current Medications: Current Medications Sig/Poppy Start time Last Medication Dose Route Stop Time Status Admin Acetaminophen 650 MG Q6P PRN 11/01 1645 AC PO Acetylcysteine 2 ML BID 11/08 1400 AC 11/12 INH 2025 Albuterol Sulfate 3 ML EVERY 4 HRS/AWAKE 11/08 1600 AC 11/13 INH 0635 Albuterol Sulfate 2 PUF Q4-PRN PRN 11/01 2230 AC 11/07 INH 0919 Alprazolam 0.5 MG DAILY PRN 11/12 1000 AC 11/12 PO 11/19 0959 1053 Amlodipine Besylate 10 MG DAILY 11/02 1000 AC 11/12 PO 1023 Atorvastatin Calcium 20 MG 1700 11/02 1700 AC 11/12 PO 1801 Furosemide 40 MG DAILY 11/07 1000 AC 11/12 PO 1023 Guaifenesin 600 MG Q12 11/08 2200 AC 11/12 PO 2010 Guaifenesin 10 ML Q4P PRN 11/07 1130 AC 11/10 PO 2033 Hydrocodone Bitart/ 2 TAB BID PRN 11/10 2100 AC Acetaminophen PO Ipratropium [place] 2.5 ML EVERY 4 HRS/AWAKE 11/08 1600 AC 11/13 INH 0635 Melatonin 5 MG AT BEDTIME 11/01 2345 AC 11/12 PO 2010 Methylprednisolone 20 MG 2000 11/12 2000 AC 11/12 IV 2007 Methylprednisolone 30 MG DAILY 11/12 1000 AC 11/12 IV 1054 Metoprolol Tartrate 25 MG BID 11/05 220 AC 11/12 PO 2018 Montelukast Sodium 10 MG AT BEDTIME 11/03 2200 AC 11/12 PO 2010 Omeprazole 40 MG DAILY AC 11/02 0700 AC 11/13 PO 0552 Vancomycin HCl 1,500 MG BID 11/11 1108 AC 11/12 Sodium Chloride 250 ML IV 205 Warfarin Sodium 4.5 MG 1700 11/12 1700 DC 11/12 PO 11/12 1702 2008 Vital Signs & I&O Last 24 Hrs of Vitals and I&O: Vital Signs Date Time Temp Pulse Resp B/P B/P Pulse O2 O2 Flow FiO2 Mean Ox Delivery Rate 11/13 0546 97.5 64 22 136/72 93 Nasal 1.0L Cannula 11/13 0347 92 Nasal 1.0L Cannula 11/13 0000 Nasal 1.0L Cannula 11/12 2228 98.0 87 24 150/60 92 Nasal 1.0L Cannula 11/12 2018 81 150/60 11/12 1625 95 Nasal 2.0L Cannula 11/12 1600 94 Nasal 2.0L Cannula 11/12 1456 97.7 86 18 138/76 95 11/12 1023 97.9 76 20 124/78 11/12 1023 97.9 76 20 124/78 11/12 0906 96 Nasal 2.0L Cannula Intake & Output 11/13 1600 11/13 0800 11/13 0000 Intake Total 300 730 Output Total 1000 450 Balance -700 280 Intake, IV 250 Intake, Oral 300 480 Output, Urine 1000 450 Patient 267 lb Weight Weight Bed scale Measurement Method And saturation 1 L 93% exam of his chest shows rare rhonchi cardiac exam shows normal S1 and S2 without murmurs Impression/Plan Impression/Plan Impression/Plan: 77-year-old gentleman admitted with acute bronchitis hypoxic respiratory failure is clinically improved. Recommendations: With increased mobility will hopefully be able to discharge home with supplemental oxygen on Friday. Patient is insistent that while here to continue receiving steroids intravenously. Can resume IV Solu-Medrol 40 mg daily. Complete course of antibiotics per infectious disease and will need oral conversion for anticipated discharge Friday. taper FiO2 his saturations allow no further recommendations
[2017-11-13 08:52] LABS: ABSOLUTE BASOPHIL COUNT 0 /CUMM (0.0-0.2); ABSOLUTE EOSINOPHIL COUNT 0 /CUMM (0.0-0.7); ABSOLUTE GRANULOCYTE CT 11.8 /CUMM (1.4-6.5); ABSOLUTE LYMPH COUNT 0.3 /CUMM (1.2-3.4); ABSOLUTE MONOCYTE COUNT 0.6 /CUMM (0.10-0.60); BASOPHIL % 0 % (0.0-2.0); EOSINOPHIL % 0 % (0-5); GRANULOCYTE % 92.9 % (42.2-75.2); HEMATOCRIT 41.7 % (42-52); MEAN CORPUSCULAR HGB 32.7 PG (27.0-31.0); MEAN PLATELET VOLUME 8.5 FL (7.4-10.4); PLATELET COUNT 161 /CUMM (130-400); RBC DISTRIBUTION WIDTH 13.7 % (11.5-14.5); RED BLOOD CELL CT 4.34 /CUMM (4.70-6.10)
[2017-11-13 10:10] LABS: WHITE BLOOD CELL COUNT 12.7 /CUMM (4.8-10.8)
--- NOTE | 2017-11-13 10:38 | RADIOLOGY REPORT ---
EXAMINATION: XR CHEST CLINICAL INFORMATION: Increasing white count, sputum production, dyspnea. COMPARISON: 11/05/2017 TECHNIQUE: 2 views of the chest were obtained. FINDINGS: New patchy retrocardiac opacities are seen. New trace bilateral pleural effusions. The right lung appears clear. No evidence of pneumothorax bilaterally. The cardiomediastinal silhouette is stable. Evidence of previous heart valve replacement. Median sternotomy wires are intact. No acute osseous abnormality. Degenerative changes of the spine. IMPRESSION: New patchy retrocardiac opacity with new trace bilateral pleural effusions.
--- NOTE | 2017-11-13 12:45 | PN- Infect Dx ---
Subjective Subjective: Clinically improving; subsiding cough. Review of Systems Comments: 12 points reviewed as noted, otherwise negative. Objective Last 24 Hrs of Vital Signs/I&O Vital Signs Date Time Temp Pulse Resp B/P B/P Pulse O2 O2 Flow FiO2 Mean Ox Delivery Rate 11/13 1129 93 Nasal 1.0L Cannula 11/13 1116 64 136/72 11/13 0646 97.5 64 22 136/72 93 Nasal 1.0L Cannula 11/13 0347 92 Nasal 1.0L Cannula 11/13 0000 Nasal 1.0L Cannula 11/12 2228 98.0 87 24 150/60 92 Nasal 1.0L Cannula 11/12 2018 81 150/60 11/12 1625 95 Nasal 2.0L Cannula 11/12 1600 94 Nasal 2.0L Cannula 11/12 1456 97.7 86 18 138/76 95 Intake & Output 11/13 1600 11/13 0800 11/13 0000 Intake Total 300 730 Output Total 1000 450 Balance -700 280 Intake, IV 250 Intake, Oral 300 480 Output, Urine 1000 450 Patient 267 lb Weight Weight Bed scale Measurement Method Physical Exam Other Physical Findings: General Appearance Alert, Oriented X3, Cooperative, No Acute Distress Skin No Rash HEENT Atraumatic, PERRLA, EOMI Neck Supple, No JVD Cardiovascular Normal S1, Normal S2, 1/6 MALOU Lungs BS diminished bases, improved inspiratory effort, b/l post lung hopkins rhonchi, no wheezes Abdomen Normal Bowel Sounds, Soft, No Tenderness Neurological Alert and oriented x3, CN 2-12 wnl Extremities edema 2+, normal pulses, stasis dermatitis changes LE's Vascular Normal Pulses, Pulses Symmetrical Results Last 24 Hours of Lab Results: Laboratory Tests 11/13 11/13 1104 0723 Chemistry Sodium (137 - 145 mmol/L) 135 L Potassium (3.5 - 5.1 mmol/L) 4.4 Chloride (98 - 107 mmol/L) 100 Carbon Dioxide (22 - 30 mmol/L) 29 Anion Gap (5 - 16) 6 BUN (9 - 20 mg/dL) 26 H Creatinine (0.7 - 1.2 mg/dL) 0.8 Estimated GFR (>60 ml/min) > 60 BUN/Creatinine Ratio (7 - 25 %) 32.5 H Coagulation PT (9.4 - 12.5 SEC) 29.4 H INR (0.90 - 1.17) 2.83 H Hematology CBC w Diff NO MAN DIFF REQ WBC (4.8 - 10.8 /CUMM) 12.7 H RBC (4.70 - 6.10 /CUMM) 4.34 L Hgb (14.0 - 18.0 G/DL) 14.2 Hct (42 - 52 %) 41.7 L MCV (80.0 - 94.0 FL) 96.0 H MCH (27.0 - 31.0 PG) 32.7 H MCHC (33.0 - 37.0 G/DL) 34.0 RDW (11.5 - 14.5 %) 13.7 Plt Count (130 - 400 /CUMM) 161 MPV (7.4 - 10.4 FL) 8.5 Gran % (42.2 - 75.2 %) 92.9 H Lymphocytes % (20.5 - 51.1 %) 2.6 L Monocytes % (1.7 - 9.3 %) 4.5 Eosinophils % (0 - 5 %) 0 Basophils % (0.0 - 2.0 %) 0 Absolute Granulocytes (1.4 - 6.5 /CUMM) 11.8 H Absolute Lymphocytes (1.2 - 3.4 /CUMM) 0.3 L Absolute Monocytes (0.10 - 0.60 /CUMM) 0.6 Absolute Eosinophils (0.0 - 0.7 /CUMM) 0 Absolute Basophils (0.0 - 0.2 /CUMM) 0 Toxicology Vancomycin Trough Pending Last 24 Hours of Mamadou Results: Reviewed Recent Imaging Studies: CXR 11/13 IMPRESSION: New patchy retrocardiac opacity with new trace bilateral pleural effusions. DICTATED BY: Nova Stiles MD DATE/TIME DICTATED:11/13/171007 PROFESSOR OF PUBLIC ADMINISTRATION:DENZEL DATE/TIME TRANSCRIBED:11/13/171007 Assessment/Plan ID Impression: 77-year-old male with history of coronary artery disease s/p CABG, s/p AVR, venous insufficiency with chronic venous stasis changes to the left leg and with chronic lower extremity edema, CHF, hypertension, hyperlipidemia, previous [place], hypertension with preserved ejection fraction, aortic aneurysm, gout, arthritis admitted on 11/01 for asthma exacerbation; protracted hospital course with persistent cough/SOB, clinically improving for the past 2 days Persistent productive cough; sputum culture w/ moderate growth MRSA; CT chest revealing possibly new LLL infiltrate; CXR 3/ retrocardiac infiltrate Mild reactive leukocytosis (steroids); steroids being tapered down Suggestion: 1. Trend CBC, BMP. F/U procalcitonin level from 11/10 (pnd) (if level low likely sputum cx positive for MRSA representing colonization). 2. Continue vancomycin 1.5 gm iv q 12 h D #5; vancomycin trough (~10); goal trough 15-20.
[2017-11-13 14:33] VITALS: BP 142/66
[2017-11-13 22:57] VITALS: BP 141/77
[2017-11-14 06:53] VITALS: BP 132/80
--- NOTE | 2017-11-14 07:03 | PN- Housestaff ---
See Addendum Subjective Follow-up For: Asthma Exacerbation Subjective: Patient was seen and examined at bedside. He reports feeling much better. States he walked around yesterday, with and without oxygen and did well. He would like to stay on the IV steroids until discharge but is agreeable on going down on the dose. Review of Systems Constitutional: Reports: no symptoms. Respiratory: Reports: short of breath. Objective Last 24 Hrs of Vital Signs/I&O Vital Signs Date Time Temp Pulse Resp B/P B/P Pulse O2 O2 Flow FiO2 Mean Ox Delivery Rate 11/14 0912 94 Nasal 1.0L Cannula 11/14 0653 97.8 72 20 132/80 92 Nasal 1.0L Cannula 11/14 0436 93 Nasal 1.0L Cannula 11/14 0000 Nasal 1.0L Cannula 11/13 2257 97.5 80 20 141/77 94 Nasal 1.0L Cannula 11/13 2250 76 141/77 11/13 1433 97.6 81 20 142/66 98 11/13 1129 93 Nasal 1.0L Cannula 11/13 1116 64 136/72 Intake & Output 11/14 1600 11/14 0800 11/14 0000 Intake Total 400 400 Output Total 600 500 Balance -200 -100 Intake, IV 300 300 Intake, Oral 100 100 Output, Urine 600 500 Patient 266 lb Weight Weight Bed scale Measurement Method Physical Exam General Appearance: Alert, Oriented X3, Cooperative, Mild Distress Skin: No Rashes, No Breakdown Skin Temp/Moisture Exam: Warm/Dry Sepsis Skin Exam (color): Normal for Ethnicity HEENT: Atraumatic Cardiovascular: Normal S1, Normal S2, No Murmurs Lungs: Clear to Auscultation, Normal Air Movement Abdomen: Soft, No Tenderness Neurological: Normal Speech Extremities: b/l lower extremity edema L>R Assessment/Plan Assessment: Mr. Avery is a 75-year-old male with past medical history of coronary artery disease, CHF, hypertension, hyperlipidemia, [place], heart failure with preserved ejection fraction, gout, arthritis and asthma who came in with chief complaint of worsening shortness of breath since last 4 days prior to coming to ER. Assesment and Plan: Asthma Exacerbation: * Continue TRC nebulization q4 prn, continue oxygen to maintain saturation greater than 92%, currently on 1L NC. * Switched to PO Prednisone 60mg today. Will taper every 3 days. * PT eval today with stairs to see how patient is coping. MRSA in Sputum: * Continue Vancomycin 1500mg BID daily. * Vanc trough yesterday 10.2. Still subtherapeutic * ID following. * His procalcitonin is negative. He can likely be discontinued off antibiotics once discussing with ID. Hx of Diastolic heart failure: Patient was initially admitted to Telemetry and underwent cardiac workup. ECHO showed EF > 60% with mechanical prosthesis aortic valve, which was similar to his baseline with good LV systolic functions. CXR 11/01 & 11/05 showed stable cardiomegaly however no sign of volume overload from CHF exacerbation * Patient was discontinued on telemetry as his SOB was likely not from CHF exacerbation, but more due to asthma * Patient would like to be maintained on Lasix 40mg qd PO as that had been his home dose. * Cardiology following. * His proBNP has decreased significantly since admission. * Repeat CXR yesterday showed new patchy retrocardiac opacities. #History of Aortic Valve Replacement on Coumadin * Will continue home dose warfarin to 4.5mg today. * Daily INR with goal 2.5-3.5 History of hyperlipidemia, coronary artery disease, hypertension * Continue atorvastatin, metoprolol 25 mg BID, amlodipine. DVT PPX Warfarin + ALPS Heart Healthy Diet Full code Problem List: 1. Asthma exacerbation Pain Ratin Pain Location: none Pain Goal: Remain pain free Pain Plan: none Tomorrow's Labs & Rationales: CBC,BEP, INR
[2017-11-14 08:29] LABS: PT 33.2 SEC (9.4-12.5)
[2017-11-14 09:22] LABS: ABSOLUTE BASOPHIL COUNT 0 /CUMM (0.0-0.2); ABSOLUTE EOSINOPHIL COUNT 0 /CUMM (0.0-0.7); ABSOLUTE GRANULOCYTE CT 11.8 /CUMM (1.4-6.5); ABSOLUTE LYMPH COUNT 0.3 /CUMM (1.2-3.4); ABSOLUTE MONOCYTE COUNT 0.2 /CUMM (0.10-0.60); BASOPHIL % 0 % (0.0-2.0); EOSINOPHIL % 0 % (0-5); GRANULOCYTE % 95.7 % (42.2-75.2); HEMATOCRIT 41.6 % (42-52); MEAN CORPUSCULAR HGB 32.4 PG (27.0-31.0); MEAN CORPUSCULAR VOLUME 95.3 FL (80.0-94.0); MEAN PLATELET VOLUME 8.4 FL (7.4-10.4); PLATELET COUNT 157 /CUMM (130-400); RBC DISTRIBUTION WIDTH 13.4 % (11.5-14.5); RED BLOOD CELL CT 4.37 /CUMM (4.70-6.10)
[2017-11-14 10:32] LABS: WHITE BLOOD CELL COUNT 12.4 /CUMM (4.8-10.8)
--- NOTE | 2017-11-14 12:02 | PN- Pulmonary ---
Subjective HPI/Critical Care Issues: Patient seen and examined this morning. He appears to be doing better he's awaiting evaluation for ambulatory sats. Objective Current Medications: Current Medications Sig/Poppy Start time Last Medication Dose Route Stop Time Status Admin Acetaminophen 650 MG Q6P PRN 11/01 1645 AC PO Acetylcysteine 2 ML BID 11/08 1400 DC 11/14 INH 0910 Albuterol Sulfate 3 ML EVERY 4 HRS/AWAKE 11/08 1600 AC 11/14 INH 0910 Albuterol Sulfate 2 PUF Q4-PRN PRN 11/01 2230 AC 11/07 INH 0919 Alprazolam 0.5 MG DAILY PRN 11/12 1000 AC 11/12 PO 11/19 0959 1053 Amlodipine Besylate 10 MG DAILY 11/02 1000 AC 11/14 PO 1138 Atorvastatin Calcium 20 MG 1700 11/02 1700 AC 11/13 PO 1807 Furosemide 40 MG DAILY 11/07 1000 AC 11/14 PO 1137 Guaifenesin 600 MG Q12 11/08 2200 AC 11/14 PO 1138 Guaifenesin 10 ML Q4P PRN 11/07 1130 AC 11/10 PO 2033 Hydrocodone Bitart/ 2 TAB BID PRN 11/10 2100 AC 11/13 Acetaminophen PO 1114 Ipratropium [place] 2.5 ML EVERY 4 HRS/AWAKE 11/14 1200 AC INH Ipratropium [place] 2.5 ML BID 11/13 2200 DC 11/14 INH 0911 Ipratropium [place] 2.5 ML EVERY 4 HRS/AWAKE 11/08 1600 DC 11/13 INH 0635 Melatonin 5 MG AT BEDTIME 11/01 2345 AC 11/13 PO 2250 Methylprednisolone 20 MG DAILY 11/14 1000 DC IV Methylprednisolone 20 MG 11/12 2000 DC 11/13 IV 2250 Methylprednisolone 30 MG DAILY 11/12 1000 DC 11/13 IV 1116 Metoprolol Tartrate 25 MG BID 11/05 2200 AC 11/14 PO 1138 Montelukast Sodium 10 MG AT BEDTIME 11/03 2200 AC 11/13 PO 2249 Nystatin 5 ML 4 TIMES/DAY 11/14 1000 AC PO Omeprazole 40 MG DAILY AC 11/02 0700 AC 11/14 PO 0547 Prednisone 60 MG DAILY 11/14 1134 AC PO Vancomycin HCl 1,500 MG BID 11/11 1108 AC 11/14 Sodium Chloride 250 ML IV 1139 Warfarin Sodium 4.5 MG 1700 11/14 1700 AC PO Warfarin Sodium 4.5 MG 1700 11/13 1700 AC 11/13 PO 1808 Vital Signs & I&O Last 24 Hrs of Vitals and I&O: Vital Signs Date Time Temp Pulse Resp B/P B/P Pulse O2 O2 Flow FiO2 Mean Ox Delivery Rate 11/14 1138 74 150/80 11/14 1138 74 150/80 11/14 0912 94 Nasal 1.0L Cannula 11/14 0653 97.8 72 20 132/80 92 Nasal 1.0L Cannula 11/14 0436 93 Nasal 1.0L Cannula 11/14 0000 Nasal 1.0L Cannula 11/13 2257 97.5 80 20 141/77 94 Nasal 1.0L Cannula 11/13 2250 76 141/77 11/13 1433 97.6 81 20 142/66 98 Intake & Output 11/14 1600 11/14 0800 11/14 0000 Intake Total 400 400 Output Total 600 500 Balance -200 -100 Intake, IV 300 300 Intake, Oral 100 100 Output, Urine 600 500 Patient 266 lb Weight Weight Bed scale Measurement Method Exam Other Physical Findings: Generally - Awake, alert and comfortable without distress Head and neck - normocephalic, atraumatic, EOMI grossly intact Cardiovascular - S1, S2 Lungs -rare rhonchi Abdomen - Bowel sounds positive, soft, non-tender Extremities - without edema Results Last 24 Hrs of Lab Results: Laboratory Tests 11/14/17 0725: Anion Gap 7, Estimated GFR > 60, BUN/Creatinine Ratio 40.0 H, PT 33.2 H, INR 3.20 H, CBC w Diff NO MAN DIFF REQ, RBC 4.37 L, MCV 95.3 H, MCH 32.4 H, MCHC 34.0, RDW 13.4, MPV 8.4, Gran % 95.7 H, Lymphocytes % 2.5 L, Monocytes % 1.8, Eosinophils % 0, Basophils % 0, Absolute Granulocytes 11.8 H, Absolute Lymphocytes 0.3 L, Absolute Monocytes 0.2, Absolute Eosinophils 0, Absolute Basophils 0 Impression/Plan Impression/Plan Impression/Plan: Impression 77-year-old man * Exacerbation of asthma/reactive airways disease possibly due to a respiratory infection such as a viral or bacterial process Plan -dc solumedrol -begin prednisone 60x3, 50x3, 40x3, 30x3, 20x3, 10x3, -dc planning over weekend (Friday) -check ambulatory sats -trc/nebs DVT prophylaxis at all times
--- NOTE | 2017-11-14 14:20 | PN- Infect Dx ---
Subjective Subjective: No fever; improved tolerance to minimal physical activity/ambulation. Dry cough. Review of Systems Comments: 12 points reviewed as noted, otherwise negative. Objective Last 24 Hrs of Vital Signs/I&O Vital Signs Date Time Temp Pulse Resp B/P B/P Pulse O2 O2 Flow FiO2 Mean Ox Delivery Rate 11/14 1138 74 150/80 11/14 1138 74 150/80 11/14 0912 94 Nasal 1.0L Cannula 11/14 0653 97.8 72 20 132/80 92 Nasal 1.0L Cannula 11/14 0436 93 Nasal 1.0L Cannula 11/14 0000 Nasal 1.0L Cannula 11/13 2257 97.5 80 20 141/77 94 Nasal 1.0L Cannula 11/13 2250 76 141/77 11/13 1433 97.6 81 20 142/66 98 Intake & Output 11/14 1600 11/14 0800 11/14 0000 Intake Total 400 400 Output Total 200 600 500 Balance -200 -200 -100 Intake, IV 300 300 Intake, Oral 100 100 Output, Urine 200 600 500 Patient 266 lb Weight Weight Bed scale Measurement Method Physical Exam Other Physical Findings: General Appearance Alert, Oriented X3, Cooperative, No Acute Distress Skin No Rash HEENT Atraumatic, PERRLA, EOMI Neck Supple, No JVD Cardiovascular Normal S1, Normal S2, 1/6 MALOU Lungs BS diminished bases, improved inspiratory effort, b/l post lung hopkins rhonchi, no wheezes Abdomen Normal Bowel Sounds, Soft, No Tenderness Neurological Alert and oriented x3, CN 2-12 wnl Extremities edema 1+, normal pulses Vascular Normal Pulses, Pulses Symmetrical Results Last 24 Hours of Lab Results: Laboratory Tests 11/14 0725 Chemistry Sodium (137 - 145 mmol/L) 133 L Potassium (3.5 - 5.1 mmol/L) 4.4 Chloride (98 - 107 mmol/L) 99 Carbon Dioxide (22 - 30 mmol/L) 27 Anion Gap (5 - 16) 7 BUN (9 - 20 mg/dL) 24 H Creatinine (0.7 - 1.2 mg/dL) 0.6 L Estimated GFR (>60 ml/min) > 60 BUN/Creatinine Ratio (7 - 25 %) 40.0 H Coagulation PT (9.4 - 12.5 SEC) 33.2 H INR (0.90 - 1.17) 3.20 H Hematology CBC w Diff NO MAN DIFF REQ WBC (4.8 - 10.8 /CUMM) 12.4 H RBC (4.70 - 6.10 /CUMM) 4.37 L Hgb (14.0 - 18.0 G/DL) 14.1 Hct (42 - 52 %) 41.6 L MCV (80.0 - 94.0 FL) 95.3 H MCH (27.0 - 31.0 PG) 32.4 H MCHC (33.0 - 37.0 G/DL) 34.0 RDW (11.5 - 14.5 %) 13.4 Plt Count (130 - 400 /CUMM) 157 MPV (7.4 - 10.4 FL) 8.4 Gran % (42.2 - 75.2 %) 95.7 H Lymphocytes % (20.5 - 51.1 %) 2.5 L Monocytes % (1.7 - 9.3 %) 1.8 Eosinophils % (0 - 5 %) 0 Basophils % (0.0 - 2.0 %) 0 Absolute Granulocytes (1.4 - 6.5 /CUMM) 11.8 H Absolute Lymphocytes (1.2 - 3.4 /CUMM) 0.3 L Absolute Monocytes (0.10 - 0.60 /CUMM) 0.2 Absolute Eosinophils (0.0 - 0.7 /CUMM) 0 Absolute Basophils (0.0 - 0.2 /CUMM) 0 Last 24 Hours of Mamadou Results: Procedure Result > GRAM STAIN Final 11/07/17-1604 WHITE BLOOD CELLS MANY SQUAMOUS CELLS RARE GRAM POSITIVE COCCI MANY PAIRS AND CLUSTERS GRAM NEGATIVE RODS FEW GRAM POSITIVE RODS FEW > LOWER RESPIRATORY CULTURE Final 11/09/17-1110 Mixed annabel after 2 dayS WITH: Moderate growth of: METH RESIST STAPH [facility]UREUS Called to/Readback by GARLAND by HAMILTON 11/09/17 1109 1. METH RESIST [employer] [facility] RX ABN ------ --- 1. METH RESIST [facility] RX AB ------ -- CEFAZOLIN R AMOXICILLIN/CLAVULINIC ACID R AMPICILLIN/SULBACTAM R GENTAMICIN S MOXIFLOXACIN S TETRACYCLINE R TRIMETHOPRIM/SULFAMETHOXAZOLE S AZITHROMYCIN R CLINDAMYCIN R ERYTHROMYCIN R LINEZOLID S OXACILLIN R VANCOMYCIN S ATTENTIONATTENTIONPLACE PATIENT ON CONTACT PRECAUTIONS Recent Imaging Studies: reviewed Assessment/Plan ID Impression: 77-year-old male with history of coronary artery disease s/p CABG, s/p AVR, venous insufficiency with chronic venous stasis changes to the left leg and with chronic lower extremity edema, CHF, hypertension, hyperlipidemia, previous [place], hypertension with preserved ejection fraction, aortic aneurysm, gout, arthritis admitted on 11/01 for asthma exacerbation; protracted hospital course with persistent cough/SOB, clinically improving for the past few days Persistent productive cough; sputum culture w/ moderate growth MRSA; CT chest revealing possibly new LLL infiltrate; CXR 11/13 retrocardiac infiltrate; procal level low from 11/10 (bacterial infection unlikely) Mild reactive leukocytosis (steroids); steroids being tapered down Suggestion: 1. Trend CBC. 2. Continue vancomycin 1.5 gm iv q 12 h D #6. 3. F/u pulm recom.
[2017-11-14 15:14] VITALS: BP 140/75
[2017-11-14 21:58] VITALS: BP 157/71
[2017-11-15 07:35] VITALS: BP 160/74
--- NOTE | 2017-11-15 08:18 | PN- Housestaff ---
See Addendum Subjective Follow-up For: Asthma Exacerbation Subjective: Patient was seen and examined at bedside. He reports feeling well. Still has a bit of cough but feels he's unable to bring phelgm up. Also feels he has some wheezing again. Review of Systems Constitutional: Reports: no symptoms. Respiratory: Reports: wheezing. Objective Last 24 Hrs of Vital Signs/I&O Vital Signs Date Time Temp Pulse Resp B/P B/P Pulse O2 O2 Flow FiO2 Mean Ox Delivery Rate 11/15 1135 97.7 63 20 160/74 11/15 0840 95 Nasal 1.0L Cannula 11/15 0802 97.7 63 20 160/74 11/15 0735 97.7 63 20 160/74 94 Nasal 1.0L Cannula 11/15 0313 Nasal 1.0L Cannula 11/15 0000 92 Nasal 1.0L Cannula 11/14 2158 98.1 87 20 157/71 92 Nasal 1.0L Cannula 11/14 2103 84 156/70 11/14 1652 94 Nasal 2.0L Cannula 11/14 1514 97.3 82 20 140/75 94 Nasal Cannula Intake & Output 11/15 1600 11/15 0800 11/15 0000 Intake Total 120 470 Output Total 400 900 Balance -280 -430 Intake, IV 270 Intake, Oral 120 200 Number 0 0 Bowel Movements Output, Urine 400 900 Patient 252 lb Weight Weight Bed scale Measurement Method Physical Exam General Appearance: Alert, Oriented X3, Cooperative, Mild Distress Skin: No Rashes, No Breakdown Skin Temp/Moisture Exam: Warm/Dry Sepsis Skin Exam (color): Normal for Ethnicity HEENT: Atraumatic Cardiovascular: Normal S1, Normal S2, systolic click Lungs: Normal Air Movement, mild wheezing and rhonchi Abdomen: Soft, No Tenderness Neurological: Normal Speech Extremities: b/l LE edema Assessment/Plan Assessment: Mr. Avery is a 75-year-old male with past medical history of coronary artery disease, CHF, hypertension, hyperlipidemia, [place], heart failure with preserved ejection fraction, gout, arthritis and asthma who came in with chief complaint of worsening shortness of breath since last 4 days prior to coming to ER. Assesment and Plan: Asthma Exacerbation: * Continue TRC nebulization q4 prn. Weaned off oxygen today. Used stairs with PT today without oxygen and his sats >92%. * Continue PO Prednisone 60mg today. Will taper every 3 days. * Will be discharged on taper. MRSA in Sputum: * Continue Vancomycin 1500mg BID daily. * Vanc trough yesterday 10.2. Still subtherapeutic * ID following. * With the improvement in his symptoms, will continue vanco for a total of 7 days. Today is day 7. Hx of Diastolic heart failure: Patient was initially admitted to Telemetry and underwent cardiac workup. ECHO showed EF > 60% with mechanical prosthesis aortic valve, which was similar to his baseline with good LV systolic functions. CXR 11/01 & 11/05 showed stable cardiomegaly however no sign of volume overload from CHF exacerbation * Patient was discontinued on telemetry as his SOB was likely not from CHF exacerbation, but more due to asthma * Patient would like to be maintained on Lasix 40mg qd PO as that had been his home dose. * Cardiology following. * His proBNP has decreased significantly since admission. * Repeat CXR showed new patchy retrocardiac opacities. #History of Aortic Valve Replacement on Coumadin * Will continue home dose warfarin to 4.5mg today. * Daily INR with goal 2.5-3.5 History of hyperlipidemia, coronary artery disease, hypertension * Continue atorvastatin, metoprolol 25 mg BID, amlodipine. DVT PPX Warfarin Heart Healthy Diet Full code Problem List: 1. Asthma exacerbation Pain Ratin Pain Location: none Pain Goal: Remain pain free Pain Plan: none Tomorrow's Labs & Rationales: CBC, BEP, INR
[2017-11-15 08:35] LABS: ABSOLUTE BASOPHIL COUNT 0 /CUMM (0.0-0.2); ABSOLUTE EOSINOPHIL COUNT 0 /CUMM (0.0-0.7); ABSOLUTE GRANULOCYTE CT 10.4 /CUMM (1.4-6.5); ABSOLUTE LYMPH COUNT 0.4 /CUMM (1.2-3.4); ABSOLUTE MONOCYTE COUNT 0.4 /CUMM (0.10-0.60); BASOPHIL % 0 % (0.0-2.0); EOSINOPHIL % 0 % (0-5); HEMATOCRIT 40.8 % (42-52); MEAN CORPUSCULAR HGB 32.8 PG (27.0-31.0); MEAN CORPUSCULAR VOLUME 96.3 FL (80.0-94.0); MEAN PLATELET VOLUME 8.3 FL (7.4-10.4); PLATELET COUNT 152 /CUMM (130-400); RED BLOOD CELL CT 4.24 /CUMM (4.70-6.10); WHITE BLOOD CELL COUNT 11.2 /CUMM (4.8-10.8)
[2017-11-15 08:54] LABS: PT 33.7 SEC (9.4-12.5)
[2017-11-15] MEDS ORDERED: PREDNISONE10 M2 PO ×2 (11:36→11:38)
--- NOTE | 2017-11-15 11:46 | PN- Pulmonary ---
Subjective HPI/Critical Care Issues: pt seen and examined afebrile 95% o2 sat on 1 L Objective Current Medications: Current Medications Sig/Poppy Start time Last Medication Dose Route Stop Time Status Admin Acetaminophen 650 MG Q6P PRN 11/01 1645 AC PO Albuterol Sulfate 3 ML EVERY 4 HRS/AWAKE 11/08 1600 AC 11/15 INH 0812 Albuterol Sulfate 2 PUF Q4-PRN PRN 11/01 2230 AC 11/07 INH 0919 Alprazolam 0.5 MG DAILY PRN 11/12 1000 AC 11/12 PO 11/19 0959 1053 Amlodipine Besylate 10 MG DAILY 11/02 1000 AC 11/15 PO 1135 Atorvastatin Calcium 20 MG 1700 11/02 1700 AC 11/14 PO 1629 Furosemide 40 MG DAILY 11/07 1000 AC 11/15 PO 0801 Guaifenesin 10 ML .STK-MED ONE 11/14 2122 DC PO 11/14 2124 Guaifenesin 600 MG Q12 11/08 2200 AC 11/15 PO 0802 Guaifenesin 10 ML Q4P PRN 11/07 1130 AC 11/15 PO 0621 Hydrocodone Bitart/ 2 TAB BID PRN 11/10 2100 AC 11/15 Acetaminophen PO 0801 Ipratropium [place] 2.5 ML EVERY 4 HRS/AWAKE 11/14 1200 AC 11/15 INH 0812 Melatonin 5 MG AT BEDTIME 11/01 2345 AC 11/14 PO 2101 Metoprolol Tartrate 25 MG BID 11/05 2200 AC 11/15 PO 0802 Montelukast Sodium 10 MG AT BEDTIME 11/03 2200 AC 11/14 PO 2101 Nystatin 5 ML 4 TIMES/DAY 11/14 1000 AC 11/15 PO 0802 Omeprazole 40 MG DAILY AC 11/02 0700 AC 11/15 PO 0621 Prednisone 60 MG DAILY 11/14 1134 AC 11/15 PO 0801 Vancomycin HCl 1,500 MG BID 11/15 1145 UNVr Sodium Chloride 250 ML IV 11/15 2329 Vancomycin HCl 1,500 MG BID 11/11 1108 DC 11/14 Sodium Chloride 250 ML IV 2103 Warfarin Sodium 4.5 MG 1700 11/15 1700 AC PO 11/15 1701 Warfarin Sodium 4.5 MG 1700 11/14 1700 DC 11/14 PO 1629 Warfarin Sodium 4.5 MG 1700 11/13 1700 DC 11/13 PO 1808 Vital Signs & I&O Last 24 Hrs of Vitals and I&O: Vital Signs Date Time Temp Pulse Resp B/P B/P Pulse O2 O2 Flow FiO2 Mean Ox Delivery Rate 11/15 1135 97.7 63 20 160/74 11/15 0840 95 Nasal 1.0L Cannula 11/15 0802 97.7 63 20 160/74 11/15 0735 97.7 63 20 160/74 94 Nasal 1.0L Cannula 11/15 0313 Nasal 1.0L Cannula 11/15 0000 92 Nasal 1.0L Cannula 11/14 2158 98.1 87 20 157/71 92 Nasal 1.0L Cannula 11/14 2103 84 156/70 11/14 1652 94 Nasal 2.0L Cannula 11/14 1514 97.3 82 20 140/75 94 Nasal Cannula Intake & Output 11/15 1600 11/15 0800 11/15 0000 Intake Total 120 470 Output Total 400 900 Balance -280 -430 Intake, IV 270 Intake, Oral 120 200 Number 0 0 Bowel Movements Output, Urine 400 900 Patient 252 lb Weight Weight Bed scale Measurement Method Exam Other Physical Findings: Generally - Awake, alert and comfortable without distress Head and neck - normocephalic, atraumatic, EOMI grossly intact Cardiovascular - S1, S2 Lungs -rare rhonchi Abdomen - Bowel sounds positive, soft, non-tender Extremities - without edema Results Last 24 Hrs of Lab Results: Laboratory Tests 11/15/17 0705: Anion Gap 9, Estimated GFR > 60, BUN/Creatinine Ratio 40.0 H, PT 33.7 H, INR 3.25 H, CBC w Diff NO MAN DIFF REQ, RBC 4.24 L, MCV 96.3 H, MCH 32.8 H, MCHC 34.0, RDW 14.0, MPV 8.3, Gran % 93.0 H, Lymphocytes % 3.6 L, Monocytes % 3.4, Eosinophils % 0, Basophils % 0, Absolute Granulocytes 10.4 H, Absolute Lymphocytes 0.4 L, Absolute Monocytes 0.4, Absolute Eosinophils 0, Absolute Basophils 0 Impression/Plan Impression/Plan Impression/Plan: Impression 77-year-old man * Exacerbation of asthma/reactive airways disease possibly due to a respiratory infection such as a viral or bacterial process Plan -prednisone 60x3, 50x3, 40x3, 30x3, 20x3, 10x3, -dc planning over weekend (Friday) -check ambulatory sats -trc/nebs -complete abx per ID DVT prophylaxis at all times
[2017-11-15] MEDS ORDERED: MINOCYCLINE HC100 M1 PO (13:45)
[2017-11-15 14:26] VITALS: BP 136/63
--- NOTE | 2017-11-15 14:46 | PN- Infect Dx ---
Subjective Subjective: No fever; chills. Decreased SOB/cough. Review of Systems Comments: 12 points reviewed as noted, otherwise negative. Objective Last 24 Hrs of Vital Signs/I&O Vital Signs Date Time Temp Pulse Resp B/P B/P Pulse O2 O2 Flow FiO2 Mean Ox Delivery Rate 11/15 1426 97.4 83 17 136/63 93 Room Air 11/15 1135 97.7 63 20 160/74 11/15 0840 95 Nasal 1.0L Cannula 11/15 0802 97.7 63 20 160/74 11/15 0735 97.7 63 20 160/74 94 Nasal 1.0L Cannula 11/15 0313 Nasal 1.0L Cannula 11/15 0000 92 Nasal 1.0L Cannula 11/14 2158 98.1 87 20 157/71 92 Nasal 1.0L Cannula 11/14 2103 84 156/70 11/14 1652 94 Nasal 2.0L Cannula 11/14 1514 97.3 82 20 140/75 94 Nasal Cannula Intake & Output 11/15 1600 11/15 0800 11/15 0000 Intake Total 120 470 Output Total 400 900 Balance -280 -430 Intake, IV 270 Intake, Oral 120 200 Number 0 0 Bowel Movements Output, Urine 400 900 Patient 252 lb Weight Weight Bed scale Measurement Method Physical Exam Other Physical Findings: General Appearance Alert, Oriented X3, Cooperative, No Acute Distress Skin No Rash HEENT Atraumatic, PERRLA, EOMI Neck Supple, No JVD Cardiovascular Normal S1, Normal S2, 1/6 MALOU Lungs BS diminished bases, improved inspiratory effort, b/l post lung hopkins rhonchi, no wheezes Abdomen Normal Bowel Sounds, Soft, No Tenderness Neurological Alert and oriented x3, CN 2-12 wnl Extremities edema 1+, normal pulses Vascular Normal Pulses, Pulses Symmetrical Results Last 24 Hours of Lab Results: Laboratory Tests 11/15 0705 Chemistry Sodium (137 - 145 mmol/L) 134 L Potassium (3.5 - 5.1 mmol/L) 4.2 Chloride (98 - 107 mmol/L) 98 Carbon Dioxide (22 - 30 mmol/L) 27 Anion Gap (5 - 16) 9 BUN (9 - 20 mg/dL) 24 H Creatinine (0.7 - 1.2 mg/dL) 0.6 L Estimated GFR (>60 ml/min) > 60 BUN/Creatinine Ratio (7 - 25 %) 40.0 H Coagulation PT (9.4 - 12.5 SEC) 33.7 H INR (0.90 - 1.17) 3.25 H Hematology CBC w Diff NO MAN DIFF REQ WBC (4.8 - 10.8 /CUMM) 11.2 H RBC (4.70 - 6.10 /CUMM) 4.24 L Hgb (14.0 - 18.0 G/DL) 13.9 L Hct (42 - 52 %) 40.8 L MCV (80.0 - 94.0 FL) 96.3 H MCH (27.0 - 31.0 PG) 32.8 H MCHC (33.0 - 37.0 G/DL) 34.0 RDW (11.5 - 14.5 %) 14.0 Plt Count (130 - 400 /CUMM) 152 MPV (7.4 - 10.4 FL) 8.3 Gran % (42.2 - 75.2 %) 93.0 H Lymphocytes % (20.5 - 51.1 %) 3.6 L Monocytes % (1.7 - 9.3 %) 3.4 Eosinophils % (0 - 5 %) 0 Basophils % (0.0 - 2.0 %) 0 Absolute Granulocytes (1.4 - 6.5 /CUMM) 10.4 H Absolute Lymphocytes (1.2 - 3.4 /CUMM) 0.4 L Absolute Monocytes (0.10 - 0.60 /CUMM) 0.4 Absolute Eosinophils (0.0 - 0.7 /CUMM) 0 Absolute Basophils (0.0 - 0.2 /CUMM) 0 Last 24 Hours of Mamadou Results: Reviewed Recent Imaging Studies: Reviewed Assessment/Plan ID Impression: 77-year-old male with history of coronary artery disease s/p CABG, s/p AVR, venous insufficiency with chronic venous stasis changes to the left leg and with chronic lower extremity edema, CHF, hypertension, hyperlipidemia, previous [place], hypertension with preserved ejection fraction, aortic aneurysm, gout, arthritis admitted on 11/01 for asthma exacerbation; protracted hospital course with persistent cough/SOB, clinically improving for the past few days Persistent productive cough; sputum culture w/ moderate growth MRSA; CT chest revealing possibly new LLL infiltrate; CXR 3/ retrocardiac infiltrate; procal level low from 11/10 (bacterial infection unlikely) Mild reactive leukocytosis (steroids); steroids being tapered down Suggestion: 1. Trend CBC. 2. Continue vancomycin 1.5 gm iv q 12 h D #03/21. Stert minocycline 100 mg po bid x 7 d in am; please call if any side effects. 3. F/u pulm recom.
[2017-11-15 22:23] VITALS: BP 130/70
[2017-11-16 06:30] VITALS: BP 144/74
--- NOTE | 2017-11-16 07:46 | PN- Housestaff ---
See Addendum Subjective Follow-up For: Asthma Exacerbation Subjective: Patient was seen and examined at bedside. He feels really good today. No active complaints. Looks forward to go home today. Review of Systems Constitutional: Reports: no symptoms. Respiratory: Reports: cough. Objective Last 24 Hrs of Vital Signs/I&O Vital Signs Date Time Temp Pulse Resp B/P B/P Pulse O2 O2 Flow FiO2 Mean Ox Delivery Rate 11/16 0630 97.5 66 20 144/74 92 Room Air 11/16 0357 Room Air 11/15 2223 91 20 130/70 94 11/15 2121 91 130/70 11/15 1600 92 Room Air 11/15 1426 97.4 83 17 136/63 93 Room Air 11/15 1135 97.7 63 20 160/74 11/15 0840 95 Nasal 1.0L Cannula Intake & Output 11/16 1600 11/16 0800 11/16 0000 Intake Total 200 800 Output Total 350 Balance -150 800 Intake, IV 250 Intake, Oral 200 550 Output, Urine 350 Patient 266 lb Weight Weight Bed scale Measurement Method Physical Exam General Appearance: Alert, Oriented X3, Cooperative, No Acute Distress Skin: No Rashes, No Breakdown Skin Temp/Moisture Exam: Warm/Dry Sepsis Skin Exam (color): Normal for Ethnicity HEENT: Atraumatic Cardiovascular: Normal S1, Normal S2, No Murmurs Lungs: Normal Air Movement, rales present Abdomen: Soft, No Tenderness Neurological: Normal Speech Extremities: b/l lower extremity edema Assessment/Plan Assessment: Mr. Avery is a 75-year-old male with past medical history of coronary artery disease, CHF, hypertension, hyperlipidemia, [place], heart failure with preserved ejection fraction, gout, arthritis and asthma who came in with chief complaint of worsening shortness of breath since last 4 days prior to coming to ER. Assesment and Plan: Asthma Exacerbation: * Continue TRC nebulization q4 prn. Used stairs with PT yesterday without oxygen and his sats >92%. * Continue PO Prednisone 60mg today. Will taper every 3 days. * Will be discharged on taper. * Stable to be discharged. MRSA in Sputum: * Discontinue Vanc * ID following. * Start on Minocycline oral 100mg BID for another 7 days to complete a total of 14 day antibiotic course. Hx of Diastolic heart failure: Patient was initially admitted to Telemetry and underwent cardiac workup. ECHO showed EF > 60% with mechanical prosthesis aortic valve, which was similar to his baseline with good LV systolic functions. CXR 11/01 & 11/05 showed stable cardiomegaly however no sign of volume overload from CHF exacerbation * Patient was discontinued on telemetry as his SOB was likely not from CHF exacerbation, but more due to asthma * Patient would like to be maintained on Lasix 40mg qd PO as that had been his home dose. * Cardiology following. * His proBNP has decreased significantly since admission. * Repeat CXR showed new patchy retrocardiac opacities. #History of Aortic Valve Replacement on Coumadin * He can continue warfarin at home now as he will be discharged today. History of hyperlipidemia, coronary artery disease, hypertension * Continue atorvastatin, metoprolol 25 mg BID, amlodipine. DVT PPX Warfarin Heart Healthy Diet Full code Problem List: 1. Asthma exacerbation Pain Ratin Pain Location: none Pain Goal: Remain pain free Pain Plan: none Tomorrow's Labs & Rationales: none
[2017-11-16 09:30] LABS: ABSOLUTE BASOPHIL COUNT 0 /CUMM (0.0-0.2); ABSOLUTE EOSINOPHIL COUNT 0 /CUMM (0.0-0.7); ABSOLUTE GRANULOCYTE CT 8.2 /CUMM (1.4-6.5); ABSOLUTE LYMPH COUNT 0.7 /CUMM (1.2-3.4); ABSOLUTE MONOCYTE COUNT 0.6 /CUMM (0.10-0.60); BASOPHIL % 0.1 % (0.0-2.0); EOSINOPHIL % 0.1 % (0-5); MEAN CORPUSCULAR HGB 32.5 PG (27.0-31.0); MEAN CORPUSCULAR HGB CONC 33.6 G/DL (33.0-37.0); MEAN CORPUSCULAR VOLUME 96.8 FL (80.0-94.0); MEAN PLATELET VOLUME 8.2 FL (7.4-10.4); PLATELET COUNT 153 /CUMM (130-400); RBC DISTRIBUTION WIDTH 13.8 % (11.5-14.5); RED BLOOD CELL CT 4.14 /CUMM (4.70-6.10); WHITE BLOOD CELL COUNT 9.5 /CUMM (4.8-10.8)
[2017-11-16 09:35] VITALS: BP 144/74
[2017-11-16 09:41] LABS: PT 39.6 SEC (9.4-12.5)
[2017-11-16 10:24] LABS: GRANULOCYTE % 86.4 % (42.2-75.2)
== END 2017-11-16 11:10 | DRG 177 ==
LOC: ERH 14:14 → 2NA 15:50 → 1NO 15:50 → 2NA 15:50 → ERHI 15:50 → ENRESERV 16:31 → ENTRNSPT 18:00 → EDTRNSPTSTS 18:07 → EDTRNSPT 18:07 → ENRESERV 18:27 → 1NO 18:27 → EDTRNSPT 18:34 → CMPTRNSPT 18:38 → 1NO 11-03 11:54 → ENTRNSPT 11-03 17:09 → EDTRNSPTSTS 11-03 17:59 → EDTRNSPT 11-03 17:59 → 2NA 11-03 18:23 → CMPTRNSPT 11-03 18:26 → 2NA 11-04 17:37
PROVIDERS: Internal Medicine; Physician Assistant; Preventive Medicine Public Health & General Preventive Medicine; Radiology Vascular & Interventional Radiology; Student in an Organized Health Care Education/Training Program
DX: J15.212 Pneumonia due to Methicillin resistant Staphylococcus aureus (principal); J96.01 Acute respiratory failure with hypoxia; I50.32 Chronic diastolic (congestive) heart failure; J45.901 Unspecified asthma with (acute) exacerbation; Z95.1 Presence of aortocoronary bypass graft; I11.0 Hypertensive heart disease with heart failure; Z95.2 Presence of prosthetic heart valve; Z91.14 Patient's other noncompliance with medication regimen; J04.0 Acute laryngitis; B97.89 Other viral agents as the cause of diseases classified elsewhere; I25.10 Atherosclerotic heart disease of native coronary artery without angina pectoris; E78.5 Hyperlipidemia, unspecified; I25.2 Old myocardial infarction; M19.90 Unspecified osteoarthritis, unspecified site; Z79.01 Long term (current) use of anticoagulants; Z95.4 Presence of other heart-valve replacement
CPT/HCPCS: 1NP; 2NAP; 87184; 36415; 36592; 70220; 71045; 71046; 82436; 87070; 87147; 87804; 87804-59; 93005; 93010; 93306; 96374; 97110-GO; 97116-GO; 97161-GP; 97530-GO; 99291; J0456; J1644; J1650; J1940; J2920; J2930; J3370; J3490; J7040; J7060; J7608